=== PATIENT | female | born 1970 | race Caucasian/White ===

== ENCOUNTER 2016-04-18 14:16 | Emergency (ER) | payer BC, OTHER ==
[~2016-04-18 14:16] MED LIST: DULO30CA PO; LIDO5DIS36 TD; ROXI15TA12 PO; VALI10TA PO
[2016-04-18] MEDS ORDERED: ONDANSETRON 4MG/2ML VIAL (J2405) As Ordered ONE (16:40)
[2016-04-18] MEDS ORDERED: MORPHINE 4 MG/ML 1ML SYRINGE As Ordered ONE (17:01)
[2016-04-18 17:13] LABS: ALBUMIN/GLOBULIN RATIO 1.11 (1.00-1.93); ALKALINE PHOSPHATASE 192 U/L (45-117); ALT/SGPT 15 U/L (12-78); AMYLASE 17 U/L (25-115); ANION GAP 10 MEQ/L (8-16); AST/SGOT 12 U/L (15-37); BILIRUBIN,DIRECT 0.1 MG/DL (0.0-0.2); BILIRUBIN,TOTAL 0.4 MG/DL (0.2-1.0); BLOOD UREA NITROGEN 10 MG/DL (7-18); CALCIUM LEVEL 9.1 MG/DL (8.5-10.1); CARBON DIOXIDE LEVEL 26 MEQ/L (21-32); CHLORIDE LEVEL 106 MEQ/L (98-107); CREATININE FOR GFR 0.76 MG/DL (0.55-1.02); GLOMERULAR FILTRATION RATE > 60.0 (>58); GLUCOSE, FASTING 108 MG/DL (70-105); POTASSIUM SERUM 3.5 MEQ/L (3.5-5.1); SODIUM LEVEL 142 MEQ/L (136-145); TOTAL PROTEIN 7.6 GM/DL (6.4-8.2)
[2016-04-18 17:22] LABS: BASO # 0.1 K/mm3 (0.0-0.2); BASO % 0.8 % (0.0-1.0); EOS # 0.1 K/mm3 (0.0-0.50); EOS % 1.3 % (0.0-3.0); LARGE UNSTAINED CELL # 0.1 K/mm3 (0.0-0.4); LARGE UNSTAINED CELL % 1.4 % (0.0-4.0); LYMPH # 1.7 K/mm3 (1.5-4.5); LYMPH % 19.2 % (24.0-44.0); MEAN CORPUSCULAR HEMOGLOBIN 20.5 pg (27.0-33.0); MEAN CORPUSCULAR HGB CONC 30.5 g/dl (32.0-36.5); MEAN CORPUSCULAR VOLUME 67.2 fl (80.0-96.0); MONO # 0.4 K/mm3 (0.0-0.8); MONO % 5.2 % (0.0-5.0); NEUTROPHILS # 5.8 K/mm3 (1.8-7.7); NEUTROPHILS % 72.2 % (36.0-66.0); PLATELET COUNT, AUTOMATED 352 k/mm3 (150-450); RED CELL DISTRIBUTION WIDTH 18.5 % (11.5-14.5); WHITE BLOOD COUNT 8.1 K/mm3 (4.0-10.0)
[2016-04-18 17:38] LABS: ADD MORPHOLOGY? YES
[2016-04-18 17:50] LABS: ANISOCYTOSIS 2+; HYPOCHROMASIA 2+; MICROCYTOSIS 3+
--- NOTE | 2016-04-18 17:51 | REP ---
CT of the abdomen and pelvis 04/18/2016 performed without contrast Indication: Abdominal pain and flank pain Comparison: CT of the abdomen and pelvis 11/25/2014 performed at [facility]. Technique: 3 mm continuous spiral axial sections were performed through the abdomen and pelvis without IV or oral contrast administration. Findings: A 1.4 cm bulla is identified in the right lower lobe above the right hemidiaphragm. The liver , spleen are unremarkable. Kidneys are without hydronephrosis. Mild atrophic changes are seen within the pancreas. The pancreatic duct is visualized, slightly ectatic yet not distended. Gallbladder is not visualized and may be surgically absent. Extensive postsurgical changes are noted in left upper quadrant consistent with prior gastric bypass surgery. The stomach is contracted. Few air fluid levels in mildly generous small bowel loops are seen in left upper quadrant. The abdominal aorta is of normal course and caliber. There are no pathologically enlarged retroperitoneal nodes. Focal circumferential area of narrowing is seen within the rectosigmoid colon, identified on image 111 series 201 which could represent spasm or fixed narrowing. There is generalized under distension within the transverse colon. There are findings consistent with a prior ileocolic anastomoses in region of the ascending colon. Bladder is contracted. Uterus is absent. There are no visualized pelvic masses. Patient has previous bilateral posterior laminectomies at L4, L5 levels. There has been previous disc cage placement at L4-5, and L5 -S1, with bilateral posterior pedicular fusion from L4 through S1. Alignment is anatomic. Impression1. Extensive postsurgical changes to include previous gastric bypass surgery, hysterectomy, and right colon resection. 2. Focal area of narrowing within rectosigmoid colon which could represent spasm or fixed narrowing. Interval followup is recommended. 3. Previous bilateral laminectomies and posterior fusion at L4 and L5. There are bilateral posterior pedicular screws with vertical stabilization rods noted from L4-S1. 4. Kidneys are without hydronephrosis bilaterally. Bladder is contracted. Signed by Shelly Wing MD 04/21/2016 08:49 P
[2016-04-18] MEDS ORDERED: DICYCLOMINE 10 MG CAP As Ordered ONE (18:09)
[2016-04-18] MEDS ORDERED: PERCOCET 5MG/325MG TAB As Ordered ONE (18:09)
--- NOTE | 2016-04-18 18:48 | EDDOCDS ---
Nurse's Notes [facility] Name: Miranda Ferreira Age: 45 yrs Sex: Female : 1970 Arrival Date: 04/18/2016 Time: 14:16 Bed I5 / M5 Private MD: Tony Cordero J Diagnosis: Other abdominal pain-Right Sided with Right Flank Pain Presentation: 04/18 14:22 Presenting complaint: Patient states: was suppose to have a hernia repair tomorrow but dsf it was canceled. Pt states the surgery was rescheduled for Friday. Pt states the pain has been severe the past 3 days and the nurses at [facility] told pt to go to [facility]. Pt states she has a spot on the right side of her abdomen and it was suppose to be biopsied today but unable to make it due to weather. Risk factors: the patient reports no vaginal bleeding. Adult Sepsis Screening: The patient does not have new or worsening altered mentation. Patient's respiratory rate is less than 22. Systolic blood pressure is greater than 100. Patient has a qSOFA score of 0- Negative Sepsis Screen. Suicide/Homicide risk assessment- the patient denies having any suicidal and/or homicidal ideations and does not present with any other emotional, behavioral or mental health complaints. 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 Transition of care: patient was not received from another setting of care. 14:22 Acuity: ROSIO Level 3 dsf 14:22 Method Of Arrival: Walkin/Carried/Asstd dsf Triage Assessment: 14:31 General: Appears in no apparent distress, Behavior is appropriate for age, cooperative. dsf Pain: Location: abdomen Pain currently is 8 out of 10 on a pain scale. back, Quality of pain is described as pressure. HIV screening NA for this visit Offered previously. GI: Reports Pain is 9 out of 10 on a pain scale. 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 Tylenol 325 mg Oral tab 2 tabs as needed (Last dose: 04/18/2016 07:30) - PMHx: uterine cancer; Migraines; Diabetes - NIDDM: controlled; - PSHx: Gastric Bypass; Appendectomy; back surgery x 2; Hysterectomy; neck surgery; Bowel resection (October 2013); - Social history: Smoking status: Patient states was never smoker of tobacco. No barriers to communication noted, The patient speaks fluent Chinese, Speaks appropriately for age. - Family history: Not pertinent. - : The pt / caregiver states he / she is not on anticoagulants. Home medication list is obtained from the patient. - Exposure Risk Screening:: None identified. Screenin:09 Screening information is obtained from the patient. Fall risk: No risks identified. rs3 Assistance ADL's: requires no assistance with activities of daily living. Abuse/DV Screen: The patient / caregiver reports he/she is: not in a situation that causes fear, pain or injury. Nutritional screening: No deficits noted. Advance Directives: Currently, there is no health care proxy. home support is adequate. Assessment: 17:08 General: Appears in no apparent distress, Behavior is appropriate for age, cooperative. rs3 Pain: Location: abdomen. Respiratory: Airway is patent. GI: Abdomen is non- distended Bowel sounds present X 4 quads. Abd is soft and non tender X 4 quads. Reports upper abdominal pain, nausea. Derm: Skin is pink, warm & dry. 18:45 General: Appears uncomfortable, Behavior is appropriate for age, cooperative, pleasant. ka4 Pain: Location: abdomen Pain currently is 7 out of 10 on a pain scale. Neurological: Level of Consciousness is awake, alert, obeys commands, Oriented to person, place, time, Roughing Mill Operator are equal bilaterally Moves all extremities. Gait is steady, Speech is normal, Facial symmetry appears normal, Facial symmetry: tongue is midline. Respiratory: Airway is patent Respiratory effort is even, unlabored, Respiratory pattern is regular, symmetrical. Derm: Skin is intact, is healthy with good turgor, Skin is pink, warm & dry. Vital Signs: 14:19 BP 161 / 81; Pulse 93; Resp 18 S; Temp 97.4(O); Pulse Ox 100% on R/A; Weight 54.43 kg gr2 (R); Height 5 ft. 4 in. (162.56 cm) (R); Pain 10/10; 15:16 BP 166 / 94 RA Sitting (auto/reg); Pulse 106; Resp 18; Temp 97.3(O); Pulse Ox 100% on ka4 R/A; Pain 9/10; 18:41 BP 129 / 70 RA Sitting (auto/reg); Pulse 88 MON; Resp 18 S; Temp 97.9(O); Pulse Ox 98% ka4 on R/A; Pain 7/10; 14:19 Body Mass Index 20.60 (54.43 kg, 162.56 cm) gr2 Vitals: 14:19 Log In Time: April 18, 2016 at 14:19. gr2 ED Course: 14:18 Patient visited by Yovany Wagoner. gr2 14:18 Patient moved to Waiting gr2 14:19 Tony Cordero is Private Physician. gr2 14:21 Patient visited by Yovany Wagoner. gr2 14:21 Patient moved to Pre RCE gr2 14:26 Triage Initiated dsf 15:15 Patient moved to Triage 2 ka4 15:19 Patient visited by Zoya Crain LPN. ka4 16:[address] PA-C is PHCP. ef1 16:04 Scarlet Alfred MD is Attending Physician. ef1 16:[address]ais [address] PA-C. ef1 16:17 Patient moved to I5 / M5 ttb 16:[address] ka4 16:37 Amylase Sent. ka4 16:37 Basic Metabolic Profile Sent. ka4 16:37 CBC with Diff Sent. ka4 16:37 Liver Profile Sent. ka4 16:37 Lipase Sent. ka4 16:38 [facility] Payment Agreement was scanned into [employer] and attached to record. zo 16:38 Inserted saline lock: 20 gauge in left antecubital area and blood collected. The ka4 patient tolerated the procedure well. 16:[address] Anais Lane PA-C. ef1 16:57 Patient moved to I5 / M5 ek2 17:19 [address] by Anais Lane PA-C. ef1 17:50 Patient visited by Anais Lane PA-C. ef1 18:03 Tony Cordero is Referral Physician. ef1 18:11 CT ABD & PELVIS: No Contrast Returned. EDMS 18:18 Patient visited by Zoya Crain LPN. ka4 18:45 The patient / caregiver is instructed regarding the plan of care and ED course. Patient ka4 has correct armband on for positive identification. 18:45 Discontinued IV lock intact, bleeding controlled, pressure dressing applied, No ka4 redness/swelling at site. No procedures done that require assistance. Administered Medications: 16:46 Drug: NS 0.9% 1000 ml [sodium chloride 0.9 % intravenous solution] Route: IV; Rate: rs3 bolus; Site: left antecubital; 16:46 Drug: Ondansetron 4 mg [ondansetron HCl 2 mg/mL intravenous solution (2 mL)] Route: rs3 IVP; Site: left antecubital; 18:45 Follow up: Response: Nausea is decreased ka4 17:08 Drug: morphine 4 mg [morphine 4 mg/mL intravenous cartridge (1 mL)] Route: IVP; Site: rs3 left antecubital; 18:45 Follow up: Response: No significant change. ka4 18:17 Drug: Dicyclomine 20 mg [dicyclomine 10 mg capsule (2 caps)] Route: PO; ka4 18:44 Follow up: Response: No Adverse Reaction ka4 18:17 Drug: oxyCODONE-acetaminophen 2 tabs [oxycodone-acetaminophen 5 mg-325 mg tablet (2 ka4 tabs)] Route: PO; 18:44 Follow up: Response: Pain is decreased ka4 Order Results: Lab Order: Amylase; SPEC'M 04/18/16 16:33 Test: AMYLASE; Value: 17; Range: 25-115; Abnormal: Below low normal; Units: U/L; Status: F Lab Order: Basic Metabolic Profile; SPEC'M 04/18/16 16:33 Test: GLUCOSE, FASTING; Value: 108; Range: 70-105; Abnormal: Above high normal; Units: MG/DL; Status: F Test: BLOOD UREA NITROGEN; Value: 10; Range: 7-18; Units: MG/DL; Status: F Test: CREATININE FOR GFR; Value: 0.76; Range: 0.55-1.02; Units: MG/DL; Status: F Test: GLOMERULAR FILTRATION RATE; Value: > 60.0; Range: >58; Status: F Test: SODIUM LEVEL; Value: 142; Range: 136-145; Units: MEQ/L; Status: F Test: POTASSIUM SERUM; Value: 3.5; Range: 3.5-5.1; Units: MEQ/L; Status: F Test: CHLORIDE LEVEL; Value: 106; Range: 98-107; Units: MEQ/L; Status: F Test: CARBON DIOXIDE LEVEL; Value: 26; Range: 21-32; Units: MEQ/L; Status: F Test: ANION GAP; Value: 10; Range: 8-16; Units: MEQ/L; Status: F Test: CALCIUM LEVEL; Value: 9.1; Range: 8.5-10.1; Units: MG/DL; Status: F Test Note: ; Units are mL/min/1.73 m2 Chronic Kidney Disease Staging per NKF: Stage I & II GFR >=60 Normal to Mildly Decreased Stage III GFR 30-59 Moderately Decreased Stage IV GFR 15-29 Severely Decreased Stage V GFR <15 Very Little GFR Left ESRD GFR <15 on CHIEF MEDIA OFFICER Lab Order: CBC with Diff; SPEC'M 04/18/16 16:33 Test: WHITE BLOOD COUNT; Value: 8.1; Range: 4.0-10.0; Units: K/mm3; Status: F Test: RED BLOOD COUNT; Value: 4.83; Range: 4.00-5.40; Units: M/mm3; Status: F Test: HEMOGLOBIN; Value: 9.9; Range: 12.0-16.0; Abnormal: Below low normal; Units: g/dl; Status: F Test: HEMATOCRIT; Value: 32.5; Range: 36.0-47.0; Abnormal: Below low normal; Units: %; Status: F Test: MEAN CORPUSCULAR VOLUME; Value: 67.2; Range: 80.0-96.0; Abnormal: Below low normal; Units: fl; Status: F Test: MEAN CORPUSCULAR HEMOGLOBIN; Value: 20.5; Range: 27.0-33.0; Abnormal: Below low normal; Units: pg; Status: F Test: MEAN CORPUSCULAR HGB CONC; Value: 30.5; Range: 32.0-36.5; Abnormal: Below low normal; Units: g/dl; Status: F Test: RED CELL DISTRIBUTION WIDTH; Value: 18.5; Range: 11.5-14.5; Abnormal: Above high normal; Units: %; Status: F Test: PLATELET COUNT, AUTOMATED; Value: 352; Range: 150-450; Units: k/mm3; Status: F Test: NEUTROPHILS %; Value: 72.2; Range: 36.0-66.0; Abnormal: Above high normal; Units: %; Status: F Test: LYMPH %; Value: 19.2; Range: 24.0-44.0; Abnormal: Below low normal; Units: %; Status: F Test: MONO %; Value: 5.2; Range: 0.0-5.0; Abnormal: Above high normal; Units: %; Status: F Test: EOS %; Value: 1.3; Range: 0.0-3.0; Units: %; Status: F Test: BASO %; Value: 0.8; Range: 0.0-1.0; Units: %; Status: F Test: LARGE UNSTAINED CELL %; Value: 1.4; Range: 0.0-4.0; Units: %; Status: F Test: NEUTROPHILS #; Value: 5.8; Range: 1.8-7.7; Units: K/mm3; Status: F Test: LYMPH #; Value: 1.7; Range: 1.5-4.5; Units: K/mm3; Status: F Test: MONO #; Value: 0.4; Range: 0.0-0.8; Units: K/mm3; Status: F Test: EOS #; Value: 0.1; Range: 0.0-0.50; Units: K/mm3; Status: F Test: BASO #; Value: 0.1; Range: 0.0-0.2; Units: K/mm3; Status: F Test: LARGE UNSTAINED CELL #; Value: 0.1; Range: 0.0-0.4; Units: K/mm3; Status: F Lab Order: Lipase; SPEC'M 04/18/16 16:33 Test: LIPASE; Value: 74; Range: 73-393; Units: U/L; Status: F Lab Order: Liver Profile; SPEC'M 04/18/16 16:33 Test: AST/SGOT; Value: 12; Range: 15-37; Abnormal: Below low normal; Units: U/L; Status: F Test: ALT/SGPT; Value: 15; Range: 12-78; Units: U/L; Status: F Test: ALKALINE PHOSPHATASE; Value: 192; Range: 45-117; Abnormal: Above high normal; Units: U/L; Status: F Test: BILIRUBIN,TOTAL; Value: 0.4; Range: 0.2-1.0; Units: MG/DL; Status: F Test: BILIRUBIN,DIRECT; Value: 0.1; Range: 0.0-0.2; Units: MG/DL; Status: F Test: TOTAL PROTEIN; Value: 7.6; Range: 6.4-8.2; Units: GM/DL; Status: F Test: ALBUMIN; Value: 4.0; Range: 3.2-5.2; Units: GM/DL; Status: F Test: ALBUMIN/GLOBULIN RATIO; Value: 1.11; Range: 1.00-1.93; Status: F Lab Order: Urinalysis; SPEC'M 04/18/16 16:20 Test: APPEARANCE, URINE; Value: CLEAR; Range: CLEAR; Status: F Test: COLOR, URINE; Value: STRAW; Range: YELLOW; Status: F Test: PH,URINE; Value: 6.0; Range: 5.0-9.0; Units: UNITS; Status: F Test: SPECIFIC GRAVITY URINE AUTO; Value: 1.006; Range: 1.002-1.035; Status: F Test: PROTEIN, URINE AUTO; Value: NEGATIVE; Range: NEGATIVE; Units: mg/dL; Status: F Test: GLUCOSE, URINE (UA) AUTO; Value: NEGATIVE; Range: NEGATIVE; Units: mg/dL; Status: F Test: KETONE, URINE AUTO; Value: NEGATIVE; Range: NEGATIVE; Units: mg/dL; Status: F Test: UROBILINOGEN, URINE AUTO; Value: 0.2; Range: 0.0-2.0; Units: mg/dL; Status: F Test: BILIRUBIN, URINE AUTO; Value: NEGATIVE; Range: NEGATIVE; Status: F Test: NITRITE, URINE AUTO; Value: NEGATIVE; Range: NEGATIVE; Status: F Test: LEUKOCYTE ESTERASE, URINE AUTO; Value: NEGATIVE; Range: NEGATIVE; Status: F Test: BLOOD, URINE BLOOD; Value: NEGATIVE; Range: NEGATIVE; Status: F Test: WBC, URINE AUTO; Value: 2; Range: 0-3; Units: /HPF; Status: F Test: RBC, URINE AUTO; Value: 2; Range: 0-3; Units: /HPF; Status: F Test: BACTERIA, URINE AUTO; Value: 1+; Range: NEGATIVE; Abnormal: Above high normal; Status: F Test: SQUAMOUS EPITHELIAL CELL UR AU; Value: 1; Range: 0-6; Units: /HPF; Status: F Test: MUCUS, URINE; Value: SMALL; Range: NEGATIVE; Status: F Test: HYALINE CAST, URINE AUTO; Value: 0; Range: 0-1; Units: /LPF; Status: F Lab Order: RBC MORPH PROF NO CHARGE; SPEC'M 04/18/16 16:33 Test: PLATELET ESTIMATE; Range: NORMAL; Status: I Test: HYPOCHROMASIA; Value: 2+; Status: F Test: ANISOCYTOSIS; Value: 2+; Status: F Test: MICROCYTOSIS; Value: 3+; Status: F Test: PLATELET ESTIMATE; Value: NORMAL; Range: NORMAL; Status: F Radiology Order: CT ABD & PELVIS: No Contrast Test: CT ABD & PELVIS: No Contrast REASON FOR EXAMINATION: abd pain and flank pain; CT of the abdomen and pelvis 04/18/2016 performed without contrast; ; Indication: Abdominal pain and flank pain; ; Comparison: CT of the abdomen and pelvis 11/25/2014 performed at [facility].; ; Technique: 3 mm continuous spiral axial sections were performed through the; abdomen and pelvis without IV or oral contrast administration.; ; Findings: A 1.4 cm bulla is identified in the right lower lobe above the right; hemidiaphragm. The liver , spleen are unremarkable. Kidneys are without; hydronephrosis. Mild atrophic changes are seen within the pancreas. The; pancreatic duct is visualized slightly ectatic yet not distended. Gallbladder is; not visualized and may be surgically absent. Extensive postsurgical changes are; noted in left upper quadrant consistent with prior gastric bypass surgery. The; stomach is contracted. Few air fluid levels in mildly generous small bowel; loops are seen in left upper quadrant.; ; The abdominal aorta is of normal course and caliber. There are no pathologically; enlarged retroperitoneal nodes. Focal circumferential area of narrowing is seen; within the rectosigmoid colon, identified on image 111 series 201. There is; generalized under distension within the transverse colon. There are findings; consistent with a prior ileocolic anastomoses in region of the ascending colon.; ; Bladder is contracted. Uterus is absent. There are no visualized pelvic masses.; ; Patient has had previous bilateral posterior laminectomies at L4, L5 levels.; There has been previous disc cage placement at L4-5, and L5 -S1, with bilateral; posterior pedicular fusion from L4 through S1. Alignment is anatomic.; ; Impression; 1. Extensive postsurgical changes to include previous gastric bypass surgery,; hysterectomy, and right colon resection.; 2. Focal area of narrowing within rectosigmoid colon which could represent spasm; or fixed narrowing. Interval followup is recommended; 3. Previous bilateral laminectomies and posterior fusion at L4 and L5. There; are bilateral posterior pedicular screws with vertical stabilization rods noted; from L4-S1.; 4. Kidneys are without hydronephrosis bilaterally. Bladder is contracted.; ; ; ; ; ; ; Unreviewed; Outcome: 18:03 Discharge ordered by Provider. ef1 18:45 Discharge Assessment: patient administered narcotics - yes. Pt provided with safe ka4 discharge. The following High Risk Discharge criteria are identified: None. Discharged to home ambulatory. Condition: good Condition: stable. CT Study completed. Property :Personal belongings accompany Pt. 18:47 Patient left the ED. ka4 Signatures: Dispatcher [employer] EDMS Cruz Ramirez Erica, PA-C PA-C ef1 Coco Soliz RN RN rs3 Carmina Lange RN RN Carley Macias RN RN ttb Raymond, Gainslee gr2 Zoya Crain LPN LPN ka4 Robby Figueredo2 MTDD
--- NOTE | 2016-04-18 18:48 | EDDOCDS ---
Physician Documentation [facility] Name: Miranda Ferreira Age: 45 yrs Sex: Female : 1970 Arrival Date: 04/18/2016 Time: 14:16 Bed I5 / M5 Private MD: Tony Cordero J Disposition: 04/18/16 18:03 Discharged to Home/Self Care. Impression: Other abdominal pain - Right Sided with Right Flank Pain. - Condition is Stable. - Discharge Instructions: Abdominal Pain, Adult, [id number], Flank Pain, [id number]. - Prescriptions for Bentyl 20 mg Oral Tablet - take 1 tablet by ORAL route every 6 hours As needed; 20 tablet. ZOFRAN ODT 4 mg - dissolve 1 tablet by ORAL route 4 times per day As needed do not chew, do not swallow whole; 10 tablet. - Medication Reconciliation, Local Pharmacy Hours form. - Follow up: Tony Cordero; When: 1 - 2 days; Reason: Recheck today's complaints, Continuance of care. Follow up: Emergency Department; Reason: Worsening of conditions. - Problem is new. - Symptoms have improved. Historical: - Allergies: Avelox (Hives); ivp dye (Anaphylaxis); Lisinopril (Hives); Phenobarbital (Anaphylaxis); Ativan (Anaphylaxis); Aspirin (Anaphylaxis); PROPOXYPHENE (Anaphylaxis); Soma (Hives); nabumetone (Hives); Lyrica (Hives); Topamax (Hives); Tramadol HCl (Vomit); [id number] Antimigraine Agents (Anaphylaxis); - Home Meds: 1. Tylenol 325 mg Oral tab 2 tabs as needed (Last dose: 04/18/2016 07:30) - PMHx: uterine cancer; Migraines; Diabetes - NIDDM: controlled; - PSHx: Gastric Bypass; Appendectomy; back surgery x 2; Hysterectomy; neck surgery; Bowel resection (October 2013); - Social history: Smoking status: Patient states was never smoker of tobacco. No barriers to communication noted, The patient speaks fluent Serbian, Speaks appropriately for age. - Family history: Not pertinent. - : The pt / caregiver states he / she is not on anticoagulants. Home medication list is obtained from the patient. - Exposure Risk Screening:: None identified. 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 4 in. (162.56 cm) (R); Pain 10/10; 15:16 BP 166 / 94 RA Sitting (auto/reg); Pulse 106; Resp 18; Temp 97.3(O); Pulse Ox 100% on ka4 R/A; Pain 9/10; 18:41 BP 129 / 70 RA Sitting (auto/reg); Pulse 88 MON; Resp 18 S; Temp 97.9(O); Pulse Ox 98% ka4 on R/A; Pain 7/10; 14:19 Body Mass Index 20.60 (54.43 kg, 162.56 cm) gr2 MDM: 16:14 NS 0.9% 1000 ml IV at bolus once ordered. ef1 16:14 Ondansetron 4 mg IVP once ordered. ef1 16:14 Undress patient appropriately for examination ordered. ef1 16:15 Amylase Ordered. EDMS 16:15 Basic Metabolic Profile Ordered. EDMS 16:15 CBC with Diff Ordered. EDMS 16:15 Lipase Ordered. EDMS 16:15 Liver Profile Ordered. EDMS 16:15 Urinalysis Ordered. EDMS 16:15 Urine Culture Ordered. EDMS 16:15 CT ABD & PELVIS: No Contrast Ordered. EDMS 16:15 NOTHING BY MOUTH+DIET ordered. EDMS 16:36 Financial registration complete. zo 16:38 [facility] Payment Agreement was scanned into [employer] and attached to record. zo 16:48 morphine 4 mg IVP once ordered. ef1 17:52 Amylase Reviewed. ef1 17:52 Basic Metabolic Profile Reviewed. ef1 17:52 CBC with Diff Reviewed. ef1 17:52 Liver Profile Reviewed. ef1 17:52 Urinalysis Reviewed. ef1 17:52 Lipase Reviewed. ef1 17:57 CBC with Diff Reviewed. ef1 17:57 RBC MORPH PROF NO CHARGE Reviewed. ef1 18:02 Dicyclomine 20 mg PO once ordered. ef1 18:02 oxyCODONE-acetaminophen 5 mg-325 mg 2 tabs PO once ordered. ef1 Administered Medications: 16:46 Drug: NS 0.9% 1000 ml [sodium chloride 0.9 % intravenous solution] Route: IV; Rate: rs3 bolus; Site: left antecubital; 16:46 Drug: Ondansetron 4 mg [ondansetron HCl 2 mg/mL intravenous solution (2 mL)] Route: rs3 IVP; Site: left antecubital; 18:45 Follow up: Response: Nausea is decreased ka4 17:08 Drug: morphine 4 mg [morphine 4 mg/mL intravenous cartridge (1 mL)] Route: IVP; Site: rs3 left antecubital; 18:45 Follow up: Response: No significant change. ka4 18:17 Drug: Dicyclomine 20 mg [dicyclomine 10 mg capsule (2 caps)] Route: PO; ka4 18:44 Follow up: Response: No Adverse Reaction ka4 18:17 Drug: oxyCODONE-acetaminophen 2 tabs [oxycodone-acetaminophen 5 mg-325 mg tablet (2 ka4 tabs)] Route: PO; 18:44 Follow up: Response: Pain is decreased ka4 Signatures: Dispatcher [employer] EDCruz Rothman Erica, PA-C PAAlanna ef1 Carmina Lange RN RN Zoya Lui LPN COLLEGE SPECIALIST ka4 Coco Soliz RN rs3 The chart was reviewed and I authenticate all verbal orders and agree with the evaluation and treatment provided.Attachments: 16:38 [facility] Payment Agreement zo MTDD
--- NOTE | 2016-04-20 19:49 | EDDOCDS ---
Nurse's Notes [facility] Name: Miranda Ferreira Age: 45 yrs Sex: Female : 1970 Arrival Date: 04/18/2016 Time: 14:16 Bed I5 / M5 Private MD: Tony Cordero J Diagnosis: Other abdominal pain-Right Sided with Right Flank Pain Presentation: 04/18 14:22 Presenting complaint: Patient states: was suppose to have a hernia repair tomorrow but dsf it was canceled. Pt states the surgery was rescheduled for Friday. Pt states the pain has been severe the past 3 days and the nurses at [facility] told pt to go to [facility]. Pt states she has a spot on the right side of her abdomen and it was suppose to be biopsied today but unable to make it due to weather. Risk factors: the patient reports no vaginal bleeding. Adult Sepsis Screening: The patient does not have new or worsening altered mentation. Patient's respiratory rate is less than 22. Systolic blood pressure is greater than 100. Patient has a qSOFA score of 0- Negative Sepsis Screen. Suicide/Homicide risk assessment- the patient denies having any suicidal and/or homicidal ideations and does not present with any other emotional, behavioral or mental health complaints. Status: Patient is not a supervisor self service store or dependent. Transition of care: patient was not received from another setting of care. 14:22 Acuity: ROSIO Level 3 dsf 14:22 Method Of Arrival: Walkin/Carried/Asstd dsf Triage Assessment: 14:31 General: Appears in no apparent distress, Behavior is appropriate for age, cooperative. dsf Pain: Location: abdomen Pain currently is 8 out of 10 on a pain scale. back, Quality of pain is described as pressure. HIV screening NA for this visit Offered previously. GI: Reports Pain is 9 out of 10 on a pain scale. CLIENT ARCHITECT: 14:31 LMP N/A - Hysterectomy dsf Historical: - Allergies: Avelox (Hives); ivp dye (Anaphylaxis); Lisinopril (Hives); Phenobarbital (Anaphylaxis); Ativan (Anaphylaxis); Aspirin (Anaphylaxis); PROPOXYPHENE (Anaphylaxis); Soma (Hives); nabumetone (Hives); Lyrica (Hives); Topamax (Hives); Tramadol HCl (Vomit); [id number] Antimigraine Agents (Anaphylaxis); - Home Meds: 1. Tylenol 325 mg Oral tab 2 tabs as needed (Last dose: 04/18/2016 07:30) - PMHx: uterine cancer; Migraines; Diabetes - NIDDM: controlled; - PSHx: Gastric Bypass; Appendectomy; back surgery x 2; Hysterectomy; neck surgery; Bowel resection (October 2013); - Social history: Smoking status: Patient states was never smoker of tobacco. No barriers to communication noted, The patient speaks fluent Danish, Speaks appropriately for age. - Family history: Not pertinent. - : The pt / caregiver states he / she is not on anticoagulants. Home medication list is obtained from the patient. - Exposure Risk Screening:: None identified. Screenin:09 Screening information is obtained from the patient. Fall risk: No risks identified. rs3 Assistance ADL's: requires no assistance with activities of daily living. Abuse/DV Screen: The patient / caregiver reports he/she is: not in a situation that causes fear, pain or injury. Nutritional screening: No deficits noted. Advance Directives: Currently, there is no health care proxy. home support is adequate. Assessment: 17:08 General: Appears in no apparent distress, Behavior is appropriate for age, cooperative. rs3 Pain: Location: abdomen. Respiratory: Airway is patent. GI: Abdomen is non- distended Bowel sounds present X 4 quads. Abd is soft and non tender X 4 quads. Reports upper abdominal pain, nausea. Derm: Skin is pink, warm & dry. 18:45 General: Appears uncomfortable, Behavior is appropriate for age, cooperative, pleasant. ka4 Pain: Location: abdomen Pain currently is 7 out of 10 on a pain scale. Neurological: Level of Consciousness is awake, alert, obeys commands, Oriented to person, place, time, [employer] are equal bilaterally Moves all extremities. Gait is steady, Speech is normal, Facial symmetry appears normal, Facial symmetry: tongue is midline. Respiratory: Airway is patent Respiratory effort is even, unlabored, Respiratory pattern is regular, symmetrical. Derm: Skin is intact, is healthy with good turgor, Skin is pink, warm & dry. Vital Signs: 14:19 BP 161 / 81; Pulse 93; Resp 18 S; Temp 97.4(O); Pulse Ox 100% on R/A; Weight 54.43 kg gr2 (R); Height 5 ft. 4 in. (162.56 cm) (R); Pain 10/10; 15:16 BP 166 / 94 RA Sitting (auto/reg); Pulse 106; Resp 18; Temp 97.3(O); Pulse Ox 100% on ka4 R/A; Pain 9/10; 18:41 BP 129 / 70 RA Sitting (auto/reg); Pulse 88 MON; Resp 18 S; Temp 97.9(O); Pulse Ox 98% ka4 on R/A; Pain 7/10; 14:19 Body Mass Index 20.60 (54.43 kg, 162.56 cm) gr2 Vitals: 14:19 Log In Time: April 18, 2016 at 14:19. gr2 ED Course: 14:18 Patient visited by Yovany Wagoner. gr2 14:18 Patient moved to Waiting gr2 14:19 Tony Cordero is Private Physician. gr2 14:21 Patient visited by Yovany Wagoner. gr2 14:21 Patient moved to Pre RCE gr2 14:26 Triage Initiated dsf 15:15 Patient moved to Triage 2 ka4 15:19 Patient visited by Zoya Crain LPN. ka4 16:[address] PA-C is PHCP. ef1 16:04 Scarlet Alfred MD is Attending Physician. ef1 16:[address] Anais [address] PA-C. ef1 16:17 Patient moved to I5 / M5 ttb 16:[address] ka4 16:37 Amylase Sent. ka4 16:37 Basic Metabolic Profile Sent. ka4 16:37 CBC with Diff Sent. ka4 16:37 Liver Profile Sent. ka4 16:37 Lipase Sent. ka4 16:38 [facility] Payment Agreement was scanned into [employer] and attached to record. zo 16:38 Inserted saline lock: 20 gauge in left antecubital area and blood collected. The ka4 patient tolerated the procedure well. 16:[address] by Anais Lane PA-C. ef1 16:57 Patient moved to I5 / M5 ek2 17:19 [address] by Anais Lane PA-C. ef1 17:50 Patient visited by Anais Lane PA-C. ef1 18:03 Tony Cordero is Referral Physician. ef1 18:11 CT ABD & PELVIS: No Contrast Returned. EDMS 18:18 Patient visited by Zoya Crain LPN. ka4 18:45 The patient / caregiver is instructed regarding the plan of care and ED course. Patient ka4 has correct armband on for positive identification. 18:45 Discontinued IV lock intact, bleeding controlled, pressure dressing applied, No ka4 redness/swelling at site. No procedures done that require assistance. 04/19 08:07 T-Sheet-- Draft Copy was scanned into [employer] and attached to record. gb 13:27 Radiology Report was scanned into [employer] and attached to record. gb Administered Medications: 04/18 16:46 Drug: NS 0.9% 1000 ml [sodium chloride 0.9 % intravenous solution] Route: IV; Rate: rs3 bolus; Site: left antecubital; 16:46 Drug: Ondansetron 4 mg [ondansetron HCl 2 mg/mL intravenous solution (2 mL)] Route: rs3 IVP; Site: left antecubital; 18:45 Follow up: Response: Nausea is decreased ka4 17:08 Drug: morphine 4 mg [morphine 4 mg/mL intravenous cartridge (1 mL)] Route: IVP; Site: rs3 left antecubital; 18:45 Follow up: Response: No significant change. ka4 18:17 Drug: Dicyclomine 20 mg [dicyclomine 10 mg capsule (2 caps)] Route: PO; ka4 18:44 Follow up: Response: No Adverse Reaction ka4 18:17 Drug: oxyCODONE-acetaminophen 2 tabs [oxycodone-acetaminophen 5 mg-325 mg tablet (2 ka4 tabs)] Route: PO; 18:44 Follow up: Response: Pain is decreased ka4 Order Results: Lab Order: Amylase; SPEC'M 04/18/16 16:33 Test: AMYLASE; Value: 17; Range: 25-115; Abnormal: Below low normal; Units: U/L; Status: F Lab Order: Basic Metabolic Profile; SPEC'M 04/18/16 16:33 Test: GLUCOSE, FASTING; Value: 108; Range: 70-105; Abnormal: Above high normal; Units: MG/DL; Status: F Test: BLOOD UREA NITROGEN; Value: 10; Range: 7-18; Units: MG/DL; Status: F Test: CREATININE FOR GFR; Value: 0.76; Range: 0.55-1.02; Units: MG/DL; Status: F Test: GLOMERULAR FILTRATION RATE; Value: > 60.0; Range: >58; Status: F Test: SODIUM LEVEL; Value: 142; Range: 136-145; Units: MEQ/L; Status: F Test: POTASSIUM SERUM; Value: 3.5; Range: 3.5-5.1; Units: MEQ/L; Status: F Test: CHLORIDE LEVEL; Value: 106; Range: 98-107; Units: MEQ/L; Status: F Test: CARBON DIOXIDE LEVEL; Value: 26; Range: 21-32; Units: MEQ/L; Status: F Test: ANION GAP; Value: 10; Range: 8-16; Units: MEQ/L; Status: F Test: CALCIUM LEVEL; Value: 9.1; Range: 8.5-10.1; Units: MG/DL; Status: F Test Note: ; Units are mL/min/1.73 m2 Chronic Kidney Disease Staging per NKF: Stage I & II GFR >=60 Normal to Mildly Decreased Stage III GFR 30-59 Moderately Decreased Stage IV GFR 15-29 Severely Decreased Stage V GFR <15 Very Little GFR Left ESRD GFR <15 on PROMOTIONS EXECUTIVE Lab Order: CBC with Diff; SPEC'M 04/18/16 16:33 Test: WHITE BLOOD COUNT; Value: 8.1; Range: 4.0-10.0; Units: K/mm3; Status: F Test: RED BLOOD COUNT; Value: 4.83; Range: 4.00-5.40; Units: M/mm3; Status: F Test: HEMOGLOBIN; Value: 9.9; Range: 12.0-16.0; Abnormal: Below low normal; Units: g/dl; Status: F Test: HEMATOCRIT; Value: 32.5; Range: 36.0-47.0; Abnormal: Below low normal; Units: %; Status: F Test: MEAN CORPUSCULAR VOLUME; Value: 67.2; Range: 80.0-96.0; Abnormal: Below low normal; Units: fl; Status: F Test: MEAN CORPUSCULAR HEMOGLOBIN; Value: 20.5; Range: 27.0-33.0; Abnormal: Below low normal; Units: pg; Status: F Test: MEAN CORPUSCULAR HGB CONC; Value: 30.5; Range: 32.0-36.5; Abnormal: Below low normal; Units: g/dl; Status: F Test: RED CELL DISTRIBUTION WIDTH; Value: 18.5; Range: 11.5-14.5; Abnormal: Above high normal; Units: %; Status: F Test: PLATELET COUNT, AUTOMATED; Value: 352; Range: 150-450; Units: k/mm3; Status: F Test: NEUTROPHILS %; Value: 72.2; Range: 36.0-66.0; Abnormal: Above high normal; Units: %; Status: F Test: LYMPH %; Value: 19.2; Range: 24.0-44.0; Abnormal: Below low normal; Units: %; Status: F Test: MONO %; Value: 5.2; Range: 0.0-5.0; Abnormal: Above high normal; Units: %; Status: F Test: EOS %; Value: 1.3; Range: 0.0-3.0; Units: %; Status: F Test: BASO %; Value: 0.8; Range: 0.0-1.0; Units: %; Status: F Test: LARGE UNSTAINED CELL %; Value: 1.4; Range: 0.0-4.0; Units: %; Status: F Test: NEUTROPHILS #; Value: 5.8; Range: 1.8-7.7; Units: K/mm3; Status: F Test: LYMPH #; Value: 1.7; Range: 1.5-4.5; Units: K/mm3; Status: F Test: MONO #; Value: 0.4; Range: 0.0-0.8; Units: K/mm3; Status: F Test: EOS #; Value: 0.1; Range: 0.0-0.50; Units: K/mm3; Status: F Test: BASO #; Value: 0.1; Range: 0.0-0.2; Units: K/mm3; Status: F Test: LARGE UNSTAINED CELL #; Value: 0.1; Range: 0.0-0.4; Units: K/mm3; Status: F Lab Order: Lipase; SPEC'M 04/18/16 16:33 Test: LIPASE; Value: 74; Range: 73-393; Units: U/L; Status: F Lab Order: Liver Profile; SPEC'M 04/18/16 16:33 Test: AST/SGOT; Value: 12; Range: 15-37; Abnormal: Below low normal; Units: U/L; Status: F Test: ALT/SGPT; Value: 15; Range: 12-78; Units: U/L; Status: F Test: ALKALINE PHOSPHATASE; Value: 192; Range: 45-117; Abnormal: Above high normal; Units: U/L; Status: F Test: BILIRUBIN,TOTAL; Value: 0.4; Range: 0.2-1.0; Units: MG/DL; Status: F Test: BILIRUBIN,DIRECT; Value: 0.1; Range: 0.0-0.2; Units: MG/DL; Status: F Test: TOTAL PROTEIN; Value: 7.6; Range: 6.4-8.2; Units: GM/DL; Status: F Test: ALBUMIN; Value: 4.0; Range: 3.2-5.2; Units: GM/DL; Status: F Test: ALBUMIN/GLOBULIN RATIO; Value: 1.11; Range: 1.00-1.93; Status: F Lab Order: Urinalysis; [facility]' 04/18/16 16:20 Test: APPEARANCE, URINE; Value: CLEAR; Range: CLEAR; Status: F Test: COLOR, URINE; Value: STRAW; Range: YELLOW; Status: F Test: PH,URINE; Value: 6.0; Range: 5.0-9.0; Units: UNITS; Status: F Test: SPECIFIC GRAVITY URINE AUTO; Value: 1.006; Range: 1.002-1.035; Status: F Test: PROTEIN, URINE AUTO; Value: NEGATIVE; Range: NEGATIVE; Units: mg/dL; Status: F Test: GLUCOSE, URINE (UA) AUTO; Value: NEGATIVE; Range: NEGATIVE; Units: mg/dL; Status: F Test: KETONE, URINE AUTO; Value: NEGATIVE; Range: NEGATIVE; Units: mg/dL; Status: F Test: UROBILINOGEN, URINE AUTO; Value: 0.2; Range: 0.0-2.0; Units: mg/dL; Status: F Test: BILIRUBIN, URINE AUTO; Value: NEGATIVE; Range: NEGATIVE; Status: F Test: NITRITE, URINE AUTO; Value: NEGATIVE; Range: NEGATIVE; Status: F Test: LEUKOCYTE ESTERASE, URINE AUTO; Value: NEGATIVE; Range: NEGATIVE; Status: F Test: BLOOD, URINE BLOOD; Value: NEGATIVE; Range: NEGATIVE; Status: F Test: WBC, URINE AUTO; Value: 2; Range: 0-3; Units: /HPF; Status: F Test: RBC, URINE AUTO; Value: 2; Range: 0-3; Units: /HPF; Status: F Test: BACTERIA, URINE AUTO; Value: 1+; Range: NEGATIVE; Abnormal: Above high normal; Status: F Test: SQUAMOUS EPITHELIAL CELL UR AU; Value: 1; Range: 0-6; Units: /HPF; Status: F Test: MUCUS, URINE; Value: SMALL; Range: NEGATIVE; Status: F Test: HYALINE CAST, URINE AUTO; Value: 0; Range: 0-1; Units: /LPF; Status: F Lab Order: Urine Culture; SPEC'M 04/18/16 16:20 Test: URINE CULTURE; Value: URINE CULTURE RESULT NO GROWTH; Status: F Lab Order: RBC MORPH PROF NO CHARGE; SPEC'M 04/18/16 16:33 Test: PLATELET ESTIMATE; Range: NORMAL; Status: I Test: HYPOCHROMASIA; Value: 2+; Status: F Test: ANISOCYTOSIS; Value: 2+; Status: F Test: MICROCYTOSIS; Value: 3+; Status: F Test: PLATELET ESTIMATE; Value: NORMAL; Range: NORMAL; Status: F Radiology Order: CT ABD & PELVIS: No Contrast Test: CT ABD & PELVIS: No Contrast REASON FOR EXAMINATION: abd pain and flank pain; CT of the abdomen and pelvis 04/18/2016 performed without contrast; ; Indication: Abdominal pain and flank pain; ; Comparison: CT of the abdomen and pelvis 11/25/2014 performed at [facility].; ; Technique: 3 mm continuous spiral axial sections were performed through the; abdomen and pelvis without IV or oral contrast administration.; ; Findings: A 1.4 cm bulla is identified in the right lower lobe above the right; hemidiaphragm. The liver , spleen are unremarkable. Kidneys are without; hydronephrosis. Mild atrophic changes are seen within the pancreas. The; pancreatic duct is visualized slightly ectatic yet not distended. Gallbladder is; not visualized and may be surgically absent. Extensive postsurgical changes are; noted in left upper quadrant consistent with prior gastric bypass surgery. The; stomach is contracted. Few air fluid levels in mildly generous small bowel; loops are seen in left upper quadrant.; ; The abdominal aorta is of normal course and caliber. There are no pathologically; enlarged retroperitoneal nodes. Focal circumferential area of narrowing is seen; within the rectosigmoid colon, identified on image 111 series 201. There is; generalized under distension within the transverse colon. There are findings; consistent with a prior ileocolic anastomoses in region of the ascending colon.; ; Bladder is contracted. Uterus is absent. There are no visualized pelvic masses.; ; Patient has had previous bilateral posterior laminectomies at L4, L5 levels.; There has been previous disc cage placement at L4-5, and L5 -S1, with bilateral; posterior pedicular fusion from L4 through S1. Alignment is anatomic.; ; Impression; 1. Extensive postsurgical changes to include previous gastric bypass surgery,; hysterectomy, and right colon resection.; 2. Focal area of narrowing within rectosigmoid colon which could represent spasm; or fixed narrowing. Interval followup is recommended; 3. Previous bilateral laminectomies and posterior fusion at L4 and L5. There; are bilateral posterior pedicular screws with vertical stabilization rods noted; from L4-S1.; 4. Kidneys are without hydronephrosis bilaterally. Bladder is contracted.; ; ; ; ; ; ; Unreviewed; Outcome: 18:03 Discharge ordered by Provider. ef1 18:45 Discharge Assessment: patient administered narcotics - yes. Pt provided with safe ka4 discharge. The following High Risk Discharge criteria are identified: None. Discharged to home ambulatory. Condition: good Condition: stable. CT Study completed. Property :Personal belongings accompany Pt. 18:47 Patient left the ED. ka4 Signatures: Dispatcher [employer] EDMS Zo Mckinnon, Cruz Danielle Erica, PASharonC PA-C ef1 Coco Soliz RN RN rs3 Carmina Lange RN RN Carley Macias RN RN ttYovany Casillas gr2 Zoya Crain,ASSOCIATE PROFESSOR OF GEOLOGY ASSOCIATE PROFESSOR OF GEOLOGY ka4 Bea, Robby ek2 Chart Complete MTDD
--- NOTE | 2016-04-20 19:49 | EDDOCDS ---
Physician Documentation [facility] Name: Miranda Ferreira Age: 45 yrs Sex: Female : 1970 Arrival Date: 04/18/2016 Time: 14:16 Bed I5 / M5 Private MD: Tony Cordero J Disposition: 04/18/16 18:03 Discharged to Home/Self Care. Impression: Other abdominal pain - Right Sided with Right Flank Pain. - Condition is Stable. - Discharge Instructions: Abdominal Pain, Adult, [id number], Flank Pain, [id number]. - Prescriptions for Bentyl 20 mg Oral Tablet - take 1 tablet by ORAL route every 6 hours As needed; 20 tablet. ZOFRAN ODT 4 mg - dissolve 1 tablet by ORAL route 4 times per day As needed do not chew, do not swallow whole; 10 tablet. - Medication Reconciliation, Local Pharmacy Hours form. - Follow up: Tony Cordero; When: 1 - 2 days; Reason: Recheck today's complaints, Continuance of care. Follow up: Emergency Department; Reason: Worsening of conditions. - Problem is new. - Symptoms have improved. Historical: - Allergies: Avelox (Hives); ivp dye (Anaphylaxis); Lisinopril (Hives); Phenobarbital (Anaphylaxis); Ativan (Anaphylaxis); Aspirin (Anaphylaxis); PROPOXYPHENE (Anaphylaxis); Soma (Hives); nabumetone (Hives); Lyrica (Hives); Topamax (Hives); Tramadol HCl (Vomit); [id number] Antimigraine Agents (Anaphylaxis); - Home Meds: 1. Tylenol 325 mg Oral tab 2 tabs as needed (Last dose: 04/18/2016 07:30) - PMHx: uterine cancer; Migraines; Diabetes - NIDDM: controlled; - PSHx: Gastric Bypass; Appendectomy; back surgery x 2; Hysterectomy; neck surgery; Bowel resection (October 2013); - Social history: Smoking status: Patient states was never smoker of tobacco. No barriers to communication noted, The patient speaks fluent Luxembourgish, Speaks appropriately for age. - Family history: Not pertinent. - : The pt / caregiver states he / she is not on anticoagulants. Home medication list is obtained from the patient. - Exposure Risk Screening:: None identified. 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 4 in. (162.56 cm) (R); Pain 10/10; 15:16 BP 166 / 94 RA Sitting (auto/reg); Pulse 106; Resp 18; Temp 97.3(O); Pulse Ox 100% on ka4 R/A; Pain 9/10; 18:41 BP 129 / 70 RA Sitting (auto/reg); Pulse 88 MON; Resp 18 S; Temp 97.9(O); Pulse Ox 98% ka4 on R/A; Pain 7/10; 14:19 Body Mass Index 20.60 (54.43 kg, 162.56 cm) gr2 MDM: 16:14 NS 0.9% 1000 ml IV at bolus once ordered. ef1 16:14 Ondansetron 4 mg IVP once ordered. ef1 16:14 Undress patient appropriately for examination ordered. ef1 16:15 Amylase Ordered. EDMS 16:15 Basic Metabolic Profile Ordered. EDMS 16:15 CBC with Diff Ordered. EDMS 16:15 Lipase Ordered. EDMS 16:15 Liver Profile Ordered. EDMS 16:15 Urinalysis Ordered. EDMS 16:15 Urine Culture Ordered. EDMS 16:15 CT ABD & PELVIS: No Contrast Ordered. EDMS 16:15 NOTHING BY MOUTH+DIET ordered. EDMS 16:36 Financial registration complete. zo 16:38 [facility] Payment Agreement was scanned into [employer] and attached to record. zo 16:48 morphine 4 mg IVP once ordered. ef1 17:52 Amylase Reviewed. ef1 17:52 Basic Metabolic Profile Reviewed. ef1 17:52 CBC with Diff Reviewed. ef1 17:52 Liver Profile Reviewed. ef1 17:52 Urinalysis Reviewed. ef1 17:52 Lipase Reviewed. ef1 17:57 CBC with Diff Reviewed. ef1 17:57 RBC MORPH PROF NO CHARGE Reviewed. ef1 18:02 Dicyclomine 20 mg PO once ordered. ef1 18:02 oxyCODONE-acetaminophen 5 mg-325 mg 2 tabs PO once ordered. ef1 04/19 08:07 T-Sheet-- Draft Copy was scanned into [employer] and attached to record. gb 13:27 Radiology Report was scanned into [employer] and attached to record. gb Administered Medications: 04/18 16:46 Drug: NS 0.9% 1000 ml [sodium chloride 0.9 % intravenous solution] Route: IV; Rate: rs3 bolus; Site: left antecubital; 16:46 Drug: Ondansetron 4 mg [ondansetron HCl 2 mg/mL intravenous solution (2 mL)] Route: rs3 IVP; Site: left antecubital; 18:45 Follow up: Response: Nausea is decreased ka4 17:08 Drug: morphine 4 mg [morphine 4 mg/mL intravenous cartridge (1 mL)] Route: IVP; Site: rs3 left antecubital; 18:45 Follow up: Response: No significant change. ka4 18:17 Drug: Dicyclomine 20 mg [dicyclomine 10 mg capsule (2 caps)] Route: PO; ka4 18:44 Follow up: Response: No Adverse Reaction ka4 18:17 Drug: oxyCODONE-acetaminophen 2 tabs [oxycodone-acetaminophen 5 mg-325 mg tablet (2 ka4 tabs)] Route: PO; 18:44 Follow up: Response: Pain is decreased ka4 Signatures: Dispatcher [employer] EDMS Zo Mckinnon, Josesito Reg Cruz Bolton Erica, PA-C PA-C ef1 Carmina Lange RN RN Zoya Lui LPN LPN ka4 Coco Soliz RN rs3 The chart was reviewed and I authenticate all verbal orders and agree with the evaluation and treatment provided.Attachments: 16:38 [facility] Payment Agreement zo 04/19 08:07 T-Sheet-- Draft Copy gb Chart Complete MTDD
--- NOTE | 2016-04-20 19:49 | EDDOCDS ---
Physician Documentation [facility] Name: Miranda Ferreira Age: 45 yrs Sex: Female : 1970 Arrival Date: 04/18/2016 Time: 14:16 Bed I5 / M5 Private MD: Tony Cordero J Disposition: 04/18/16 18:03 Discharged to Home/Self Care. Impression: Other abdominal pain - Right Sided with Right Flank Pain. - Condition is Stable. - Discharge Instructions: Abdominal Pain, Adult, Rlao-lc-Olol, Flank Pain, Yqrw-tg-Xduv. - Prescriptions for Bentyl 20 mg Oral Tablet - take 1 tablet by ORAL route every 6 hours As needed; 20 tablet. ZOFRAN ODT 4 mg - dissolve 1 tablet by ORAL route 4 times per day As needed do not chew, do not swallow whole; 10 tablet. - Medication Reconciliation, Local Pharmacy Hours form. - Follow up: Tony Cordero; When: 1 - 2 days; Reason: Recheck today's complaints, Continuance of care. Follow up: Emergency Department; Reason: Worsening of conditions. - Problem is new. - Symptoms have improved. Historical: - Allergies: Avelox (Hives); ivp dye (Anaphylaxis); Lisinopril (Hives); Phenobarbital (Anaphylaxis); Ativan (Anaphylaxis); Aspirin (Anaphylaxis); PROPOXYPHENE (Anaphylaxis); Soma (Hives); nabumetone (Hives); Lyrica (Hives); Topamax (Hives); Tramadol HCl (Vomit); Powtrhrb-9-[id number] Antimigraine Agents (Anaphylaxis); - Home Meds: 1. Tylenol 325 mg Oral tab 2 tabs as needed (Last dose: 04/18/2016 07:30) - PMHx: uterine cancer; Migraines; Diabetes - NIDDM: controlled; - PSHx: Gastric Bypass; Appendectomy; back surgery x 2; Hysterectomy; neck surgery; Bowel resection (October 2013); - Social history: Smoking status: Patient states was never smoker of tobacco. No barriers to communication noted, The patient speaks fluent Croatian, Speaks appropriately for age. - Family history: Not pertinent. - : The pt / caregiver states he / she is not on anticoagulants. Home medication list is obtained from the patient. - Exposure Risk Screening:: None identified. 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 4 in. (162.56 cm) (R); Pain 10/10; 15:16 BP 166 / 94 RA Sitting (auto/reg); Pulse 106; Resp 18; Temp 97.3(O); Pulse Ox 100% on ka4 R/A; Pain 9/10; 18:41 BP 129 / 70 RA Sitting (auto/reg); Pulse 88 MON; Resp 18 S; Temp 97.9(O); Pulse Ox 98% ka4 on R/A; Pain 7/10; 14:19 Body Mass Index 20.60 (54.43 kg, 162.56 cm) gr2 MDM: 16:14 NS 0.9% 1000 ml IV at bolus once ordered. ef1 16:14 Ondansetron 4 mg IVP once ordered. ef1 16:14 Undress patient appropriately for examination ordered. ef1 16:15 Amylase Ordered. EDMS 16:15 Basic Metabolic Profile Ordered. EDMS 16:15 CBC with Diff Ordered. EDMS 16:15 Lipase Ordered. EDMS 16:15 Liver Profile Ordered. EDMS 16:15 Urinalysis Ordered. EDMS 16:15 Urine Culture Ordered. EDMS 16:15 CT ABD & PELVIS: No Contrast Ordered. EDMS 16:15 NOTHING BY MOUTH+DIET ordered. EDMS 16:36 Financial registration complete. zo 16:38 [facility] Payment Agreement was scanned into [employer] and attached to record. zo 16:48 morphine 4 mg IVP once ordered. ef1 17:52 Amylase Reviewed. ef1 17:52 Basic Metabolic Profile Reviewed. ef1 17:52 CBC with Diff Reviewed. ef1 17:52 Liver Profile Reviewed. ef1 17:52 Urinalysis Reviewed. ef1 17:52 Lipase Reviewed. ef1 17:57 CBC with Diff Reviewed. ef1 17:57 RBC MORPH PROF NO CHARGE Reviewed. ef1 18:02 Dicyclomine 20 mg PO once ordered. ef1 18:02 oxyCODONE-acetaminophen 5 mg-325 mg 2 tabs PO once ordered. ef1 04/19 08:07 T-Sheet-- Draft Copy was scanned into [employer] and attached to record. gb 13:27 Radiology Report was scanned into [employer] and attached to record. gb Administered Medications: 04/18 16:46 Drug: NS 0.9% 1000 ml [sodium chloride 0.9 % intravenous solution] Route: IV; Rate: rs3 bolus; Site: left antecubital; 16:46 Drug: Ondansetron 4 mg [ondansetron HCl 2 mg/mL intravenous solution (2 mL)] Route: rs3 IVP; Site: left antecubital; 18:45 Follow up: Response: Nausea is decreased ka4 17:08 Drug: morphine 4 mg [morphine 4 mg/mL intravenous cartridge (1 mL)] Route: IVP; Site: rs3 left antecubital; 18:45 Follow up: Response: No significant change. ka4 18:17 Drug: Dicyclomine 20 mg [dicyclomine 10 mg capsule (2 caps)] Route: PO; ka4 18:44 Follow up: Response: No Adverse Reaction ka4 18:17 Drug: oxyCODONE-acetaminophen 2 tabs [oxycodone-acetaminophen 5 mg-325 mg tablet (2 ka4 tabs)] Route: PO; 18:44 Follow up: Response: Pain is decreased ka4 Signatures: Dispatcher [employer] EDMS Zo Mckinnon, Josesito Reg Cruz Bolton Erica, PA-C PA-C ef1 Carmina Lange RN RN Zoya Lui LPN LPN ka4 Coco Soliz RN rs3 The chart was reviewed and I authenticate all verbal orders and agree with the evaluation and treatment provided.Attachments: 16:38 [facility] Payment Agreement zo 04/19 08:07 T-Sheet-- Draft Copy gb Chart Complete MTDD
--- NOTE | 2016-04-23 13:23 | EDDOCDS ---
Physician Documentation [facility] Name: Miranda Ferreira Age: 45 yrs Sex: Female : 1970 Arrival Date: 04/18/2016 Time: 14:16 Bed I5 / M5 Private MD: Tony Cordero J Disposition: 04/18/16 18:03 Discharged to Home/Self Care. Impression: Other abdominal pain - Right Sided with Right Flank Pain. - Condition is Stable. - Discharge Instructions: Abdominal Pain, Adult, Tjdx-wv-Wyvk, Flank Pain, Iyay-nj-Pclr. - Prescriptions for Bentyl 20 mg Oral Tablet - take 1 tablet by ORAL route every 6 hours As needed; 20 tablet. ZOFRAN ODT 4 mg - dissolve 1 tablet by ORAL route 4 times per day As needed do not chew, do not swallow whole; 10 tablet. - Medication Reconciliation, Local Pharmacy Hours form. - Follow up: Tony Cordero; When: 1 - 2 days; Reason: Recheck today's complaints, Continuance of care. Follow up: Emergency Department; Reason: Worsening of conditions. - Problem is new. - Symptoms have improved. Historical: - Allergies: Avelox (Hives); ivp dye (Anaphylaxis); Lisinopril (Hives); Phenobarbital (Anaphylaxis); Ativan (Anaphylaxis); Aspirin (Anaphylaxis); PROPOXYPHENE (Anaphylaxis); Soma (Hives); nabumetone (Hives); Lyrica (Hives); Topamax (Hives); Tramadol HCl (Vomit); Cnxpzjyn-1-CA3 Antimigraine Agents (Anaphylaxis); - Home Meds: 1. Tylenol 325 mg Oral tab 2 tabs as needed (Last dose: 04/18/2016 07:30) - PMHx: uterine cancer; Migraines; Diabetes - NIDDM: controlled; - PSHx: Gastric Bypass; Appendectomy; back surgery x 2; Hysterectomy; neck surgery; Bowel resection (October 2013); - Social history: Smoking status: Patient states was never smoker of tobacco. No barriers to communication noted, The patient speaks fluent Malawian, Speaks appropriately for age. - Family history: Not pertinent. - : The pt / caregiver states he / she is not on anticoagulants. Home medication list is obtained from the patient. - Exposure Risk Screening:: None identified. 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 4 in. (162.56 cm) (R); Pain 10/10; 15:16 BP 166 / 94 RA Sitting (auto/reg); Pulse 106; Resp 18; Temp 97.3(O); Pulse Ox 100% on ka4 R/A; Pain 9/10; 18:41 BP 129 / 70 RA Sitting (auto/reg); Pulse 88 MON; Resp 18 S; Temp 97.9(O); Pulse Ox 98% ka4 on R/A; Pain 7/10; 14:19 Body Mass Index 20.60 (54.43 kg, 162.56 cm) gr2 MDM: 16:14 NS 0.9% 1000 ml IV at bolus once ordered. ef1 16:14 Ondansetron 4 mg IVP once ordered. ef1 16:14 Undress patient appropriately for examination ordered. ef1 16:15 Amylase Ordered. EDMS 16:15 Basic Metabolic Profile Ordered. EDMS 16:15 CBC with Diff Ordered. EDMS 16:15 Lipase Ordered. EDMS 16:15 Liver Profile Ordered. EDMS 16:15 Urinalysis Ordered. EDMS 16:15 Urine Culture Ordered. EDMS 16:15 CT ABD & PELVIS: No Contrast Ordered. EDMS 16:15 NOTHING BY MOUTH+DIET ordered. EDMS 16:36 Financial registration complete. zo 16:38 [facility] Payment Agreement was scanned into [employer] and attached to record. zo 16:48 morphine 4 mg IVP once ordered. ef1 17:52 Amylase Reviewed. ef1 17:52 Basic Metabolic Profile Reviewed. ef1 17:52 CBC with Diff Reviewed. ef1 17:52 Liver Profile Reviewed. ef1 17:52 Urinalysis Reviewed. ef1 17:52 Lipase Reviewed. ef1 17:57 CBC with Diff Reviewed. ef1 17:57 RBC MORPH PROF NO CHARGE Reviewed. ef1 18:02 Dicyclomine 20 mg PO once ordered. ef1 18:02 oxyCODONE-acetaminophen 5 mg-325 mg 2 tabs PO once ordered. ef1 04/19 08:07 T-Sheet-- Draft Copy was scanned into [employer] and attached to record. gb 13:27 Radiology Report was scanned into [employer] and attached to record. gb Administered Medications: 04/18 16:46 Drug: NS 0.9% 1000 ml [sodium chloride 0.9 % intravenous solution] Route: IV; Rate: rs3 bolus; Site: left antecubital; 16:46 Drug: Ondansetron 4 mg [ondansetron HCl 2 mg/mL intravenous solution (2 mL)] Route: rs3 IVP; Site: left antecubital; 18:45 Follow up: Response: Nausea is decreased ka4 17:08 Drug: morphine 4 mg [morphine 4 mg/mL intravenous cartridge (1 mL)] Route: IVP; Site: rs3 left antecubital; 18:45 Follow up: Response: No significant change. ka4 18:17 Drug: Dicyclomine 20 mg [dicyclomine 10 mg capsule (2 caps)] Route: PO; ka4 18:44 Follow up: Response: No Adverse Reaction ka4 18:17 Drug: oxyCODONE-acetaminophen 2 tabs [oxycodone-acetaminophen 5 mg-325 mg tablet (2 ka4 tabs)] Route: PO; 18:44 Follow up: Response: Pain is decreased ka4 Addendum: 04/23/2016 13:22 Radiology Callback: Radiology results faxed to primary care physician/provider. dr horace cordero faxed formal report of ct abd/p for [facility]. Signatures: Dispatcher [facility] Jesús Plunkett MD MD ml Barnhardt, Gloria, Reg Reg Cruz Bolton Erica, PA-C PA-C ef1 Carmina LangeRN RN Zoya Lui LPN LPN ka4 Coco Soliz RN rs3 The chart was reviewed and I authenticate all verbal orders and agree with the evaluation and treatment provided.Attachments: 04/18 16:38 [facility] Payment Agreement zo 04/19 08:07 T-Sheet-- Draft Copy gb MTDD
--- NOTE | 2016-04-23 13:23 | EDDOCDS ---
Physician Documentation [facility] Name: Miranda Ferreira Age: 45 yrs Sex: Female : 1970 Arrival Date: 04/18/2016 Time: 14:16 Bed I5 / M5 Private MD: Tony Cordero J Disposition: 04/18/16 18:03 Discharged to Home/Self Care. Impression: Other abdominal pain - Right Sided with Right Flank Pain. - Condition is Stable. - Discharge Instructions: Abdominal Pain, Adult, Iean-ji-Iict, Flank Pain, Guic-yx-Uxmi. - Prescriptions for Bentyl 20 mg Oral Tablet - take 1 tablet by ORAL route every 6 hours As needed; 20 tablet. ZOFRAN ODT 4 mg - dissolve 1 tablet by ORAL route 4 times per day As needed do not chew, do not swallow whole; 10 tablet. - Medication Reconciliation, Local Pharmacy Hours form. - Follow up: Tony Cordero; When: 1 - 2 days; Reason: Recheck today's complaints, Continuance of care. Follow up: Emergency Department; Reason: Worsening of conditions. - Problem is new. - Symptoms have improved. Historical: - Allergies: Avelox (Hives); ivp dye (Anaphylaxis); Lisinopril (Hives); Phenobarbital (Anaphylaxis); Ativan (Anaphylaxis); Aspirin (Anaphylaxis); PROPOXYPHENE (Anaphylaxis); Soma (Hives); nabumetone (Hives); Lyrica (Hives); Topamax (Hives); Tramadol HCl (Vomit); Oeovrids-9-OJ3 Antimigraine Agents (Anaphylaxis); - Home Meds: 1. Tylenol 325 mg Oral tab 2 tabs as needed (Last dose: 04/18/2016 07:30) - PMHx: uterine cancer; Migraines; Diabetes - NIDDM: controlled; - PSHx: Gastric Bypass; Appendectomy; back surgery x 2; Hysterectomy; neck surgery; Bowel resection (October 2013); - Social history: Smoking status: Patient states was never smoker of tobacco. No barriers to communication noted, The patient speaks fluent French, Speaks appropriately for age. - Family history: Not pertinent. - : The pt / caregiver states he / she is not on anticoagulants. Home medication list is obtained from the patient. - Exposure Risk Screening:: None identified. 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 4 in. (162.56 cm) (R); Pain 10/10; 15:16 BP 166 / 94 RA Sitting (auto/reg); Pulse 106; Resp 18; Temp 97.3(O); Pulse Ox 100% on ka4 R/A; Pain 9/10; 18:41 BP 129 / 70 RA Sitting (auto/reg); Pulse 88 MON; Resp 18 S; Temp 97.9(O); Pulse Ox 98% ka4 on R/A; Pain 7/10; 14:19 Body Mass Index 20.60 (54.43 kg, 162.56 cm) gr2 MDM: 16:14 NS 0.9% 1000 ml IV at bolus once ordered. ef1 16:14 Ondansetron 4 mg IVP once ordered. ef1 16:14 Undress patient appropriately for examination ordered. ef1 16:15 Amylase Ordered. EDMS 16:15 Basic Metabolic Profile Ordered. EDMS 16:15 CBC with Diff Ordered. EDMS 16:15 Lipase Ordered. EDMS 16:15 Liver Profile Ordered. EDMS 16:15 Urinalysis Ordered. EDMS 16:15 Urine Culture Ordered. EDMS 16:15 CT ABD & PELVIS: No Contrast Ordered. EDMS 16:15 NOTHING BY MOUTH+DIET ordered. EDMS 16:36 Financial registration complete. zo 16:38 [facility] Payment Agreement was scanned into [employer] and attached to record. zo 16:48 morphine 4 mg IVP once ordered. ef1 17:52 Amylase Reviewed. ef1 17:52 Basic Metabolic Profile Reviewed. ef1 17:52 CBC with Diff Reviewed. ef1 17:52 Liver Profile Reviewed. ef1 17:52 Urinalysis Reviewed. ef1 17:52 Lipase Reviewed. ef1 17:57 CBC with Diff Reviewed. ef1 17:57 RBC MORPH PROF NO CHARGE Reviewed. ef1 18:02 Dicyclomine 20 mg PO once ordered. ef1 18:02 oxyCODONE-acetaminophen 5 mg-325 mg 2 tabs PO once ordered. ef1 04/19 08:07 T-Sheet-- Draft Copy was scanned into [employer] and attached to record. gb 13:27 Radiology Report was scanned into [employer] and attached to record. gb Administered Medications: 04/18 16:46 Drug: NS 0.9% 1000 ml [sodium chloride 0.9 % intravenous solution] Route: IV; Rate: rs3 bolus; Site: left antecubital; 16:46 Drug: Ondansetron 4 mg [ondansetron HCl 2 mg/mL intravenous solution (2 mL)] Route: rs3 IVP; Site: left antecubital; 18:45 Follow up: Response: Nausea is decreased ka4 17:08 Drug: morphine 4 mg [morphine 4 mg/mL intravenous cartridge (1 mL)] Route: IVP; Site: rs3 left antecubital; 18:45 Follow up: Response: No significant change. ka4 18:17 Drug: Dicyclomine 20 mg [dicyclomine 10 mg capsule (2 caps)] Route: PO; ka4 18:44 Follow up: Response: No Adverse Reaction ka4 18:17 Drug: oxyCODONE-acetaminophen 2 tabs [oxycodone-acetaminophen 5 mg-325 mg tablet (2 ka4 tabs)] Route: PO; 18:44 Follow up: Response: Pain is decreased ka4 Addendum: 04/23/2016 13:22 Radiology Callback: Radiology results faxed to primary care physician/provider. dr horace cordero faxed formal report of ct abd/p for [facility]. Signatures: Dispatcher [facility] Jesús Plunkett MD MD ml Barnhardt, Gloria, Reg Reg Cruz Bolton Erica, PA-C PA-C ef1 Carmina LangeRN RN Zoya Lui LPN LPN ka4 Coco Soliz RN rs3 The chart was reviewed and I authenticate all verbal orders and agree with the evaluation and treatment provided.Attachments: 04/18 16:38 [facility] Payment Agreement zo 04/19 08:07 T-Sheet-- Draft Copy gb MTDD
--- NOTE | 2016-04-23 13:24 | EDDOCDS ---
Nurse's Notes [facility] Name: Miranda Ferreira Age: 45 yrs Sex: Female : 1970 Arrival Date: 04/18/2016 Time: 14:16 Bed I5 / M5 Private MD: Tony Cordero J Diagnosis: Other abdominal pain-Right Sided with Right Flank Pain Presentation: 04/18 14:22 Presenting complaint: Patient states: was suppose to have a hernia repair tomorrow but dsf it was canceled. Pt states the surgery was rescheduled for Friday. Pt states the pain has been severe the past 3 days and the nurses at [facility] told pt to go to [facility]. Pt states she has a spot on the right side of her abdomen and it was suppose to be biopsied today but unable to make it due to weather. Risk factors: the patient reports no vaginal bleeding. Adult Sepsis Screening: The patient does not have new or worsening altered mentation. Patient's respiratory rate is less than 22. Systolic blood pressure is greater than 100. Patient has a qSOFA score of 0- Negative Sepsis Screen. Suicide/Homicide risk assessment- the patient denies having any suicidal and/or homicidal ideations and does not present with any other emotional, behavioral or mental health complaints. Status: Patient is not a youth services specialist or dependent. Transition of care: patient was not received from another setting of care. 14:22 Acuity: ROSIO Level 3 dsf 14:22 Method Of Arrival: Walkin/Carried/Asstd dsf Triage Assessment: 14:31 General: Appears in no apparent distress, Behavior is appropriate for age, cooperative. dsf Pain: Location: abdomen Pain currently is 8 out of 10 on a pain scale. back, Quality of pain is described as pressure. HIV screening NA for this visit Offered previously. GI: Reports Pain is 9 out of 10 on a pain scale. 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 Tylenol 325 mg Oral tab 2 tabs as needed (Last dose: 04/18/2016 07:30) - PMHx: uterine cancer; Migraines; Diabetes - NIDDM: controlled; - PSHx: Gastric Bypass; Appendectomy; back surgery x 2; Hysterectomy; neck surgery; Bowel resection (October 2013); - Social history: Smoking status: Patient states was never smoker of tobacco. No barriers to communication noted, The patient speaks fluent Wolof, Speaks appropriately for age. - Family history: Not pertinent. - : The pt / caregiver states he / she is not on anticoagulants. Home medication list is obtained from the patient. - Exposure Risk Screening:: None identified. Screenin:09 Screening information is obtained from the patient. Fall risk: No risks identified. rs3 Assistance ADL's: requires no assistance with activities of daily living. Abuse/DV Screen: The patient / caregiver reports he/she is: not in a situation that causes fear, pain or injury. Nutritional screening: No deficits noted. Advance Directives: Currently, there is no health care proxy. home support is adequate. Assessment: 17:08 General: Appears in no apparent distress, Behavior is appropriate for age, cooperative. rs3 Pain: Location: abdomen. Respiratory: Airway is patent. GI: Abdomen is non- distended Bowel sounds present X 4 quads. Abd is soft and non tender X 4 quads. Reports upper abdominal pain, nausea. Derm: Skin is pink, warm & dry. 18:45 General: Appears uncomfortable, Behavior is appropriate for age, cooperative, pleasant. ka4 Pain: Location: abdomen Pain currently is 7 out of 10 on a pain scale. Neurological: Level of Consciousness is awake, alert, obeys commands, Oriented to person, place, time, Terrestrial Ecologist are equal bilaterally Moves all extremities. Gait is steady, Speech is normal, Facial symmetry appears normal, Facial symmetry: tongue is midline. Respiratory: Airway is patent Respiratory effort is even, unlabored, Respiratory pattern is regular, symmetrical. Derm: Skin is intact, is healthy with good turgor, Skin is pink, warm & dry. Vital Signs: 14:19 BP 161 / 81; Pulse 93; Resp 18 S; Temp 97.4(O); Pulse Ox 100% on R/A; Weight 54.43 kg gr2 (R); Height 5 ft. 4 in. (162.56 cm) (R); Pain 10/10; 15:16 BP 166 / 94 RA Sitting (auto/reg); Pulse 106; Resp 18; Temp 97.3(O); Pulse Ox 100% on ka4 R/A; Pain 9/10; 18:41 BP 129 / 70 RA Sitting (auto/reg); Pulse 88 MON; Resp 18 S; Temp 97.9(O); Pulse Ox 98% ka4 on R/A; Pain 7/10; 14:19 Body Mass Index 20.60 (54.43 kg, 162.56 cm) gr2 Vitals: 14:19 Log In Time: April 18, 2016 at 14:19. gr2 ED Course: 14:18 Patient visited by Yovany Wagoner. gr2 14:18 Patient moved to Waiting gr2 14:19 Tony Cordero is Private Physician. gr2 14:21 Patient visited by Yovany Wagoner. gr2 14:21 Patient moved to Pre RCE gr2 14:26 Triage Initiated dsf 15:15 Patient moved to Triage 2 ka4 15:19 Patient visited by Zoya Crain LPN. ka4 16:[address] PA-C is PHCP. ef1 16:04 Scarlet Alfred MD is Attending Physician. ef1 16:[address] Anais [address] PA-C. ef1 16:17 Patient moved to I5 / M5 ttb 16:[address] ka4 16:37 Amylase Sent. ka4 16:37 Basic Metabolic Profile Sent. ka4 16:37 CBC with Diff Sent. ka4 16:37 Liver Profile Sent. ka4 16:37 Lipase Sent. ka4 16:38 [facility] Payment Agreement was scanned into [employer] and attached to record. zo 16:38 Inserted saline lock: 20 gauge in left antecubital area and blood collected. The ka4 patient tolerated the procedure well. 16:[address] by Anais Lane PA-C. ef1 16:57 Patient moved to I5 / M5 ek2 17:19 [address] by Anais Lane PA-C. ef1 17:50 Patient visited by Anais Lane PA-C. ef1 18:03 Tony Cordero is Referral Physician. ef1 18:11 CT ABD & PELVIS: No Contrast Returned. EDMS 18:18 Patient visited by Zoya Crain LPN. ka4 18:45 The patient / caregiver is instructed regarding the plan of care and ED course. Patient ka4 has correct armband on for positive identification. 18:45 Discontinued IV lock intact, bleeding controlled, pressure dressing applied, No ka4 redness/swelling at site. No procedures done that require assistance. 04/19 08:07 T-Sheet-- Draft Copy was scanned into [employer] and attached to record. gb 13:27 Radiology Report was scanned into [employer] and attached to record. gb Administered Medications: 04/18 16:46 Drug: NS 0.9% 1000 ml [sodium chloride 0.9 % intravenous solution] Route: IV; Rate: rs3 bolus; Site: left antecubital; 16:46 Drug: Ondansetron 4 mg [ondansetron HCl 2 mg/mL intravenous solution (2 mL)] Route: rs3 IVP; Site: left antecubital; 18:45 Follow up: Response: Nausea is decreased ka4 17:08 Drug: morphine 4 mg [morphine 4 mg/mL intravenous cartridge (1 mL)] Route: IVP; Site: rs3 left antecubital; 18:45 Follow up: Response: No significant change. ka4 18:17 Drug: Dicyclomine 20 mg [dicyclomine 10 mg capsule (2 caps)] Route: PO; ka4 18:44 Follow up: Response: No Adverse Reaction ka4 18:17 Drug: oxyCODONE-acetaminophen 2 tabs [oxycodone-acetaminophen 5 mg-325 mg tablet (2 ka4 tabs)] Route: PO; 18:44 Follow up: Response: Pain is decreased ka4 Order Results: Lab Order: Amylase; SPEC'M 04/18/16 16:33 Test: AMYLASE; Value: 17; Range: 25-115; Abnormal: Below low normal; Units: U/L; Status: F Lab Order: Basic Metabolic Profile; SPEC'M 04/18/16 16:33 Test: GLUCOSE, FASTING; Value: 108; Range: 70-105; Abnormal: Above high normal; Units: MG/DL; Status: F Test: BLOOD UREA NITROGEN; Value: 10; Range: 7-18; Units: MG/DL; Status: F Test: CREATININE FOR GFR; Value: 0.76; Range: 0.55-1.02; Units: MG/DL; Status: F Test: GLOMERULAR FILTRATION RATE; Value: > 60.0; Range: >58; Status: F Test: SODIUM LEVEL; Value: 142; Range: 136-145; Units: MEQ/L; Status: F Test: POTASSIUM SERUM; Value: 3.5; Range: 3.5-5.1; Units: MEQ/L; Status: F Test: CHLORIDE LEVEL; Value: 106; Range: 98-107; Units: MEQ/L; Status: F Test: CARBON DIOXIDE LEVEL; Value: 26; Range: 21-32; Units: MEQ/L; Status: F Test: ANION GAP; Value: 10; Range: 8-16; Units: MEQ/L; Status: F Test: CALCIUM LEVEL; Value: 9.1; Range: 8.5-10.1; Units: MG/DL; Status: F Test Note: ; Units are mL/min/1.73 m2 Chronic Kidney Disease Staging per NKF: Stage I & II GFR >=60 Normal to Mildly Decreased Stage III GFR 30-59 Moderately Decreased Stage IV GFR 15-29 Severely Decreased Stage V GFR <15 Very Little GFR Left ESRD GFR <15 on SENIOR LINUX UNIX ADMINISTRATOR Lab Order: CBC with Diff; SPEC'M 04/18/16 16:33 Test: WHITE BLOOD COUNT; Value: 8.1; Range: 4.0-10.0; Units: K/mm3; Status: F Test: RED BLOOD COUNT; Value: 4.83; Range: 4.00-5.40; Units: M/mm3; Status: F Test: HEMOGLOBIN; Value: 9.9; Range: 12.0-16.0; Abnormal: Below low normal; Units: g/dl; Status: F Test: HEMATOCRIT; Value: 32.5; Range: 36.0-47.0; Abnormal: Below low normal; Units: %; Status: F Test: MEAN CORPUSCULAR VOLUME; Value: 67.2; Range: 80.0-96.0; Abnormal: Below low normal; Units: fl; Status: F Test: MEAN CORPUSCULAR HEMOGLOBIN; Value: 20.5; Range: 27.0-33.0; Abnormal: Below low normal; Units: pg; Status: F Test: MEAN CORPUSCULAR HGB CONC; Value: 30.5; Range: 32.0-36.5; Abnormal: Below low normal; Units: g/dl; Status: F Test: RED CELL DISTRIBUTION WIDTH; Value: 18.5; Range: 11.5-14.5; Abnormal: Above high normal; Units: %; Status: F Test: PLATELET COUNT, AUTOMATED; Value: 352; Range: 150-450; Units: k/mm3; Status: F Test: NEUTROPHILS %; Value: 72.2; Range: 36.0-66.0; Abnormal: Above high normal; Units: %; Status: F Test: LYMPH %; Value: 19.2; Range: 24.0-44.0; Abnormal: Below low normal; Units: %; Status: F Test: MONO %; Value: 5.2; Range: 0.0-5.0; Abnormal: Above high normal; Units: %; Status: F Test: EOS %; Value: 1.3; Range: 0.0-3.0; Units: %; Status: F Test: BASO %; Value: 0.8; Range: 0.0-1.0; Units: %; Status: F Test: LARGE UNSTAINED CELL %; Value: 1.4; Range: 0.0-4.0; Units: %; Status: F Test: NEUTROPHILS #; Value: 5.8; Range: 1.8-7.7; Units: K/mm3; Status: F Test: LYMPH #; Value: 1.7; Range: 1.5-4.5; Units: K/mm3; Status: F Test: MONO #; Value: 0.4; Range: 0.0-0.8; Units: K/mm3; Status: F Test: EOS #; Value: 0.1; Range: 0.0-0.50; Units: K/mm3; Status: F Test: BASO #; Value: 0.1; Range: 0.0-0.2; Units: K/mm3; Status: F Test: LARGE UNSTAINED CELL #; Value: 0.1; Range: 0.0-0.4; Units: K/mm3; Status: F Lab Order: Lipase; SPEC'M 04/18/16 16:33 Test: LIPASE; Value: 74; Range: 73-393; Units: U/L; Status: F Lab Order: Liver Profile; SPEC'M 04/18/16 16:33 Test: AST/SGOT; Value: 12; Range: 15-37; Abnormal: Below low normal; Units: U/L; Status: F Test: ALT/SGPT; Value: 15; Range: 12-78; Units: U/L; Status: F Test: ALKALINE PHOSPHATASE; Value: 192; Range: 45-117; Abnormal: Above high normal; Units: U/L; Status: F Test: BILIRUBIN,TOTAL; Value: 0.4; Range: 0.2-1.0; Units: MG/DL; Status: F Test: BILIRUBIN,DIRECT; Value: 0.1; Range: 0.0-0.2; Units: MG/DL; Status: F Test: TOTAL PROTEIN; Value: 7.6; Range: 6.4-8.2; Units: GM/DL; Status: F Test: ALBUMIN; Value: 4.0; Range: 3.2-5.2; Units: GM/DL; Status: F Test: ALBUMIN/GLOBULIN RATIO; Value: 1.11; Range: 1.00-1.93; Status: F Lab Order: Urinalysis; [facility] 04/18/16 16:20 Test: APPEARANCE, URINE; Value: CLEAR; Range: CLEAR; Status: F Test: COLOR, URINE; Value: STRAW; Range: YELLOW; Status: F Test: PH,URINE; Value: 6.0; Range: 5.0-9.0; Units: UNITS; Status: F Test: SPECIFIC GRAVITY URINE AUTO; Value: 1.006; Range: 1.002-1.035; Status: F Test: PROTEIN, URINE AUTO; Value: NEGATIVE; Range: NEGATIVE; Units: mg/dL; Status: F Test: GLUCOSE, URINE (UA) AUTO; Value: NEGATIVE; Range: NEGATIVE; Units: mg/dL; Status: F Test: KETONE, URINE AUTO; Value: NEGATIVE; Range: NEGATIVE; Units: mg/dL; Status: F Test: UROBILINOGEN, URINE AUTO; Value: 0.2; Range: 0.0-2.0; Units: mg/dL; Status: F Test: BILIRUBIN, URINE AUTO; Value: NEGATIVE; Range: NEGATIVE; Status: F Test: NITRITE, URINE AUTO; Value: NEGATIVE; Range: NEGATIVE; Status: F Test: LEUKOCYTE ESTERASE, URINE AUTO; Value: NEGATIVE; Range: NEGATIVE; Status: F Test: BLOOD, URINE BLOOD; Value: NEGATIVE; Range: NEGATIVE; Status: F Test: WBC, URINE AUTO; Value: 2; Range: 0-3; Units: /HPF; Status: F Test: RBC, URINE AUTO; Value: 2; Range: 0-3; Units: /HPF; Status: F Test: BACTERIA, URINE AUTO; Value: 1+; Range: NEGATIVE; Abnormal: Above high normal; Status: F Test: SQUAMOUS EPITHELIAL CELL UR AU; Value: 1; Range: 0-6; Units: /HPF; Status: F Test: MUCUS, URINE; Value: SMALL; Range: NEGATIVE; Status: F Test: HYALINE CAST, URINE AUTO; Value: 0; Range: 0-1; Units: /LPF; Status: F Lab Order: Urine Culture; SPEC'M 04/18/16 16:20 Test: URINE CULTURE; Value: URINE CULTURE RESULT NO GROWTH; Status: F Lab Order: RBC MORPH PROF NO CHARGE; SPEC'M 04/18/16 16:33 Test: PLATELET ESTIMATE; Range: NORMAL; Status: I Test: HYPOCHROMASIA; Value: 2+; Status: F Test: ANISOCYTOSIS; Value: 2+; Status: F Test: MICROCYTOSIS; Value: 3+; Status: F Test: PLATELET ESTIMATE; Value: NORMAL; Range: NORMAL; Status: F Radiology Order: CT ABD & PELVIS: No Contrast Test: CT ABD & PELVIS: No Contrast REASON FOR EXAMINATION: abd pain and flank pain; CT of the abdomen and pelvis 04/18/2016 performed without contrast; ; Indication: Abdominal pain and flank pain; ; Comparison: CT of the abdomen and pelvis 11/25/2014 performed at [facility].; ; Technique: 3 mm continuous spiral axial sections were performed through the; abdomen and pelvis without IV or oral contrast administration.; ; Findings: A 1.4 cm bulla is identified in the right lower lobe above the right; hemidiaphragm.; ; The liver , spleen are unremarkable. Kidneys are without hydronephrosis. Mild; atrophic changes are seen within the pancreas. The pancreatic duct is; visualized, slightly ectatic yet not distended. Gallbladder is not visualized and; may be surgically absent. Extensive postsurgical changes are noted in left upper; quadrant consistent with prior gastric bypass surgery. The stomach is; contracted. Few air fluid levels in mildly generous small bowel loops are seen; in left upper quadrant.; ; The abdominal aorta is of normal course and caliber. There are no pathologically; enlarged retroperitoneal nodes. Focal circumferential area of narrowing is seen; within the rectosigmoid colon, identified on image 111 series 201 which could; represent spasm or fixed narrowing. There is generalized under distension within; the transverse colon. There are findings consistent with a prior ileocolic; anastomoses in region of the ascending colon.; ; Bladder is contracted. Uterus is absent. There are no visualized pelvic masses.; ; Patient has previous bilateral posterior laminectomies at L4, L5 levels. There; has been previous disc cage placement at L4-5, and L5 -S1, with bilateral; posterior pedicular fusion from L4 through S1. Alignment is anatomic.; ; Impression1. Extensive postsurgical changes to include previous gastric bypass; surgery, hysterectomy, and right colon resection.; ; 2. Focal area of narrowing within rectosigmoid colon which could represent spasm; or fixed narrowing. Interval followup is recommended.; ; 3. Previous bilateral laminectomies and posterior fusion at L4 and L5. There; are bilateral posterior pedicular screws with vertical stabilization rods noted; from L4-S1.; ; 4. Kidneys are without hydronephrosis bilaterally. Bladder is contracted.; ; ; ; ; Signed by; Shelly Wing MD 04/21/2016 08:49 P; Outcome: 18:03 Discharge ordered by Provider. ef1 18:45 Discharge Assessment: patient administered narcotics - yes. Pt provided with safe ka4 discharge. The following High Risk Discharge criteria are identified: None. Discharged to home ambulatory. Condition: good Condition: stable. CT Study completed. Property :Personal belongings accompany Pt. 18:47 Patient left the ED. ka4 Signatures: Dispatcher [employer] EDMS Zo Mckinnon, Josesito Reg Cruz Bolton Erica, PA-C PA-C ef1 Coco Soliz RN RN rs3 Carmina Lange,RN RN dsf Carley Hernandez, RN RN ttb Yovany Wagoner gr2 Zoya Crain,MARYJANE SCALE ATTENDANT ka4 Robby Figueredo ek2 Chart Complete MTDD
--- NOTE | 2016-04-23 13:24 | EDDOCDS ---
Physician Documentation [facility] Name: Miranda Ferreira Age: 45 yrs Sex: Female : 1970 Arrival Date: 04/18/2016 Time: 14:16 Bed I5 / M5 Private MD: Tony Cordero J Disposition: 04/18/16 18:03 Discharged to Home/Self Care. Impression: Other abdominal pain - Right Sided with Right Flank Pain. - Condition is Stable. - Discharge Instructions: Abdominal Pain, Adult, [id number], Flank Pain, Hpxd-to-[id number]. - Prescriptions for Bentyl 20 mg Oral Tablet - take 1 tablet by ORAL route every 6 hours As needed; 20 tablet. ZOFRAN ODT 4 mg - dissolve 1 tablet by ORAL route 4 times per day As needed do not chew, do not swallow whole; 10 tablet. - Medication Reconciliation, Local Pharmacy Hours form. - Follow up: Tony Cordero; When: 1 - 2 days; Reason: Recheck today's complaints, Continuance of care. Follow up: Emergency Department; Reason: Worsening of conditions. - Problem is new. - Symptoms have improved. Historical: - Allergies: Avelox (Hives); ivp dye (Anaphylaxis); Lisinopril (Hives); Phenobarbital (Anaphylaxis); Ativan (Anaphylaxis); Aspirin (Anaphylaxis); PROPOXYPHENE (Anaphylaxis); Soma (Hives); nabumetone (Hives); Lyrica (Hives); Topamax (Hives); Tramadol HCl (Vomit); [id number] Antimigraine Agents (Anaphylaxis); - Home Meds: 1. Tylenol 325 mg Oral tab 2 tabs as needed (Last dose: 04/18/2016 07:30) - PMHx: uterine cancer; Migraines; Diabetes - NIDDM: controlled; - PSHx: Gastric Bypass; Appendectomy; back surgery x 2; Hysterectomy; neck surgery; Bowel resection (October 2013); - Social history: Smoking status: Patient states was never smoker of tobacco. No barriers to communication noted, The patient speaks fluent Palauan, Speaks appropriately for age. - Family history: Not pertinent. - : The pt / caregiver states he / she is not on anticoagulants. Home medication list is obtained from the patient. - Exposure Risk Screening:: None identified. 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 4 in. (162.56 cm) (R); Pain 10/10; 15:16 BP 166 / 94 RA Sitting (auto/reg); Pulse 106; Resp 18; Temp 97.3(O); Pulse Ox 100% on ka4 R/A; Pain 9/10; 18:41 BP 129 / 70 RA Sitting (auto/reg); Pulse 88 MON; Resp 18 S; Temp 97.9(O); Pulse Ox 98% ka4 on R/A; Pain 7/10; 14:19 Body Mass Index 20.60 (54.43 kg, 162.56 cm) gr2 MDM: 16:14 NS 0.9% 1000 ml IV at bolus once ordered. ef1 16:14 Ondansetron 4 mg IVP once ordered. ef1 16:14 Undress patient appropriately for examination ordered. ef1 16:15 Amylase Ordered. EDMS 16:15 Basic Metabolic Profile Ordered. EDMS 16:15 CBC with Diff Ordered. EDMS 16:15 Lipase Ordered. EDMS 16:15 Liver Profile Ordered. EDMS 16:15 Urinalysis Ordered. EDMS 16:15 Urine Culture Ordered. EDMS 16:15 CT ABD & PELVIS: No Contrast Ordered. EDMS 16:15 NOTHING BY MOUTH+DIET ordered. EDMS 16:36 Financial registration complete. zo 16:38 [facility] Payment Agreement was scanned into [employer] and attached to record. zo 16:48 morphine 4 mg IVP once ordered. ef1 17:52 Amylase Reviewed. ef1 17:52 Basic Metabolic Profile Reviewed. ef1 17:52 CBC with Diff Reviewed. ef1 17:52 Liver Profile Reviewed. ef1 17:52 Urinalysis Reviewed. ef1 17:52 Lipase Reviewed. ef1 17:57 CBC with Diff Reviewed. ef1 17:57 RBC MORPH PROF NO CHARGE Reviewed. ef1 18:02 Dicyclomine 20 mg PO once ordered. ef1 18:02 oxyCODONE-acetaminophen 5 mg-325 mg 2 tabs PO once ordered. ef1 04/19 08:07 T-Sheet-- Draft Copy was scanned into [employer] and attached to record. gb 13:27 Radiology Report was scanned into [employer] and attached to record. gb Administered Medications: 04/18 16:46 Drug: NS 0.9% 1000 ml [sodium chloride 0.9 % intravenous solution] Route: IV; Rate: rs3 bolus; Site: left antecubital; 16:46 Drug: Ondansetron 4 mg [ondansetron HCl 2 mg/mL intravenous solution (2 mL)] Route: rs3 IVP; Site: left antecubital; 18:45 Follow up: Response: Nausea is decreased ka4 17:08 Drug: morphine 4 mg [morphine 4 mg/mL intravenous cartridge (1 mL)] Route: IVP; Site: rs3 left antecubital; 18:45 Follow up: Response: No significant change. ka4 18:17 Drug: Dicyclomine 20 mg [dicyclomine 10 mg capsule (2 caps)] Route: PO; ka4 18:44 Follow up: Response: No Adverse Reaction ka4 18:17 Drug: oxyCODONE-acetaminophen 2 tabs [oxycodone-acetaminophen 5 mg-325 mg tablet (2 ka4 tabs)] Route: PO; 18:44 Follow up: Response: Pain is decreased ka4 Addendum: 04/23/2016 13:22 Radiology Callback: Radiology results faxed to primary care physician/provider. dr horace cordero faxed formal report of ct abd/p for [facility]. Signatures: Dispatcher [facility] Jesús Plunkett MD MD ml Barnhardt, Gloria, Reg Reg Cruz Bolton Erica, PA-C PA-C ef1 Carmina LangeRN RN Zyoa Lui LPN LPN ka4 Coco Soliz RN rs3 The chart was reviewed and I authenticate all verbal orders and agree with the evaluation and treatment provided.Attachments: 04/18 16:38 [facility] Payment Agreement zo 04/19 08:07 T-Sheet-- Draft Copy gb Chart Complete MTDD
--- NOTE | 2016-04-23 13:24 | EDDOCDS ---
Physician Documentation [facility] Name: Miranda Ferreira Age: 45 yrs Sex: Female : 1970 Arrival Date: 04/18/2016 Time: 14:16 Bed I5 / M5 Private MD: Tony Cordero J Disposition: 04/18/16 18:03 Discharged to Home/Self Care. Impression: Other abdominal pain - Right Sided with Right Flank Pain. - Condition is Stable. - Discharge Instructions: Abdominal Pain, Adult, [id number], Flank Pain, [id number]. - Prescriptions for Bentyl 20 mg Oral Tablet - take 1 tablet by ORAL route every 6 hours As needed; 20 tablet. ZOFRAN ODT 4 mg - dissolve 1 tablet by ORAL route 4 times per day As needed do not chew, do not swallow whole; 10 tablet. - Medication Reconciliation, Local Pharmacy Hours form. - Follow up: Tony Cordero; When: 1 - 2 days; Reason: Recheck today's complaints, Continuance of care. Follow up: Emergency Department; Reason: Worsening of conditions. - Problem is new. - Symptoms have improved. Historical: - Allergies: Avelox (Hives); ivp dye (Anaphylaxis); Lisinopril (Hives); Phenobarbital (Anaphylaxis); Ativan (Anaphylaxis); Aspirin (Anaphylaxis); PROPOXYPHENE (Anaphylaxis); Soma (Hives); nabumetone (Hives); Lyrica (Hives); Topamax (Hives); Tramadol HCl (Vomit); [id number] Antimigraine Agents (Anaphylaxis); - Home Meds: 1. Tylenol 325 mg Oral tab 2 tabs as needed (Last dose: 04/18/2016 07:30) - PMHx: uterine cancer; Migraines; Diabetes - NIDDM: controlled; - PSHx: Gastric Bypass; Appendectomy; back surgery x 2; Hysterectomy; neck surgery; Bowel resection (October 2013); - Social history: Smoking status: Patient states was never smoker of tobacco. No barriers to communication noted, The patient speaks fluent Slovenian, Speaks appropriately for age. - Family history: Not pertinent. - : The pt / caregiver states he / she is not on anticoagulants. Home medication list is obtained from the patient. - Exposure Risk Screening:: None identified. 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 4 in. (162.56 cm) (R); Pain 10/10; 15:16 BP 166 / 94 RA Sitting (auto/reg); Pulse 106; Resp 18; Temp 97.3(O); Pulse Ox 100% on ka4 R/A; Pain 9/10; 18:41 BP 129 / 70 RA Sitting (auto/reg); Pulse 88 MON; Resp 18 S; Temp 97.9(O); Pulse Ox 98% ka4 on R/A; Pain 7/10; 14:19 Body Mass Index 20.60 (54.43 kg, 162.56 cm) gr2 MDM: 16:14 NS 0.9% 1000 ml IV at bolus once ordered. ef1 16:14 Ondansetron 4 mg IVP once ordered. ef1 16:14 Undress patient appropriately for examination ordered. ef1 16:15 Amylase Ordered. EDMS 16:15 Basic Metabolic Profile Ordered. EDMS 16:15 CBC with Diff Ordered. EDMS 16:15 Lipase Ordered. EDMS 16:15 Liver Profile Ordered. EDMS 16:15 Urinalysis Ordered. EDMS 16:15 Urine Culture Ordered. EDMS 16:15 CT ABD & PELVIS: No Contrast Ordered. EDMS 16:15 NOTHING BY MOUTH+DIET ordered. EDMS 16:36 Financial registration complete. zo 16:38 [facility] Payment Agreement was scanned into Sleep Number and attached to record. zo 16:48 morphine 4 mg IVP once ordered. ef1 17:52 Amylase Reviewed. ef1 17:52 Basic Metabolic Profile Reviewed. ef1 17:52 CBC with Diff Reviewed. ef1 17:52 Liver Profile Reviewed. ef1 17:52 Urinalysis Reviewed. ef1 17:52 Lipase Reviewed. ef1 17:57 CBC with Diff Reviewed. ef1 17:57 RBC MORPH PROF NO CHARGE Reviewed. ef1 18:02 Dicyclomine 20 mg PO once ordered. ef1 18:02 oxyCODONE-acetaminophen 5 mg-325 mg 2 tabs PO once ordered. ef1 04/19 08:07 T-Sheet-- Draft Copy was scanned into Sleep Number and attached to record. gb 13:27 Radiology Report was scanned into Sleep Number and attached to record. gb Administered Medications: 04/18 16:46 Drug: NS 0.9% 1000 ml [sodium chloride 0.9 % intravenous solution] Route: IV; Rate: rs3 bolus; Site: left antecubital; 16:46 Drug: Ondansetron 4 mg [ondansetron HCl 2 mg/mL intravenous solution (2 mL)] Route: rs3 IVP; Site: left antecubital; 18:45 Follow up: Response: Nausea is decreased ka4 17:08 Drug: morphine 4 mg [morphine 4 mg/mL intravenous cartridge (1 mL)] Route: IVP; Site: rs3 left antecubital; 18:45 Follow up: Response: No significant change. ka4 18:17 Drug: Dicyclomine 20 mg [dicyclomine 10 mg capsule (2 caps)] Route: PO; ka4 18:44 Follow up: Response: No Adverse Reaction ka4 18:17 Drug: oxyCODONE-acetaminophen 2 tabs [oxycodone-acetaminophen 5 mg-325 mg tablet (2 ka4 tabs)] Route: PO; 18:44 Follow up: Response: Pain is decreased ka4 Addendum: 04/23/2016 13:22 Radiology Callback: Radiology results faxed to primary care physician/provider. dr horace cordero faxed formal report of ct abd/p for [facility]. Signatures: Dispatcher [facility] Jesús Plunkett MD MD ml Barnhardt, Gloria, Reg Reg Cruz Bolton Erica, PA-C PA-C ef1 Carmina LangeRN RN Zoya Lui LPN LPN ka4 Coco Soliz RN rs3 The chart was reviewed and I authenticate all verbal orders and agree with the evaluation and treatment provided.Attachments: 04/18 16:38 [facility] Payment Agreement zo 04/19 08:07 T-Sheet-- Draft Copy gb Chart Complete MTDD
== END 2016-04-18 18:47 | disposition home or self-care (01) ==
LOC: M ED 14:16
DX: R11.0 Nausea (principal); R10.9 Unspecified abdominal pain; E11.9 Type 2 diabetes mellitus without complications; G43.909 Migraine, unspecified, not intractable, without status migrainosus; Z85.42 Personal history of malignant neoplasm of other parts of uterus; Z90.79 Acquired absence of other genital organ(s); Z90.49 Acquired absence of other specified parts of digestive tract; Z98.84 Bariatric surgery status; Z98.1 Arthrodesis status; Z88.1 Allergy status to other antibiotic agents; Z88.5 Allergy status to narcotic agent; Z88.6 Allergy status to analgesic agent; Z88.8 Allergy status to other drugs, medicaments and biological substances; Z91.041 Radiographic dye allergy status
CPT/HCPCS: 36415; 74176; 80048; 80076; 81001; 82150; 83690; 85025; 87086; 96374; 96375; 99284; J2405

== ENCOUNTER 2016-06-27 21:39 | Inpatient (IN) | payer BC, OTHER ==
[~2016-06-27] VITALS: Ht 152.4 cm; Wt 50.9 kg
[2016-06-27 23:29] LABS: BASO % 0.4 % (0.0-1.0); EOS # 0.1 K/mm3 (0.0-0.50); INR 0.94; LARGE UNSTAINED CELL # 0.2 K/mm3 (0.0-0.4); LARGE UNSTAINED CELL % 2.5 % (0.0-4.0); LYMPH # 2.1 K/mm3 (1.5-4.5); LYMPH % 36.5 % (24.0-44.0); MEAN CORPUSCULAR HEMOGLOBIN 19.8 pg (27.0-33.0); MEAN CORPUSCULAR HGB CONC 28.4 g/dl (32.0-36.5); MEAN CORPUSCULAR VOLUME 69.7 fl (80.0-96.0); MONO # 0.6 K/mm3 (0.0-0.8); NEUTROPHILS # 2.8 K/mm3 (1.8-7.7); NEUTROPHILS % 48.5 % (36.0-66.0); PLATELET COUNT, AUTOMATED 323 k/mm3 (150-450); RED CELL DISTRIBUTION WIDTH 16.4 % (11.5-14.5); RETIC HEMOGLOBIN CONTENT CHr 23.2 PG (24-36); RETICULOCYTE ABSOLUTE ADVIA212 55 x10(9)/L (17-77); WHITE BLOOD COUNT 5.8 K/mm3 (4.0-10.0)
[2016-06-27 23:30] LABS: ADD MORPHOLOGY? YES
[2016-06-27] MEDS ORDERED: LORazepam 2 MG/ML VIAL (J2060) As Ordered ONE (23:32)
[2016-06-27 23:38] LABS: ALBUMIN 3.1 GM/DL (3.2-5.2); ALBUMIN/GLOBULIN RATIO 0.86 (1.00-1.93); ALKALINE PHOSPHATASE 179 U/L (45-117); ALT/SGPT 21 U/L (12-78); ANION GAP 8 MEQ/L (8-16); AST/SGOT 24 U/L (15-37); BILIRUBIN,DIRECT < 0.1 MG/DL (0.0-0.2); BILIRUBIN,TOTAL 0.2 MG/DL (0.2-1.0); BLOOD UREA NITROGEN 14 MG/DL (7-18); CALCIUM LEVEL 7.9 MG/DL (8.5-10.1); CARBON DIOXIDE LEVEL 25 MEQ/L (21-32); CHLORIDE LEVEL 110 MEQ/L (98-107); CREATININE FOR GFR 0.81 MG/DL (0.55-1.02); FERRITIN 2 NG/ML (8-252); GLOMERULAR FILTRATION RATE > 60.0 (>58); GLUCOSE, FASTING 94 MG/DL (70-105); MAGNESIUM LEVEL 2.1 MG/DL (1.8-2.4); PERCENT SATURATION 2.2 % (13.2-37.4); POTASSIUM SERUM 3.6 MEQ/L (3.5-5.1); SODIUM LEVEL 143 MEQ/L (136-145); TOTAL IRON BINDING CAPACITY 500 UG/DL (250-450); TOTAL PROTEIN 6.7 GM/DL (6.4-8.2)
[2016-06-27 23:52] LABS: ANISOCYTOSIS 1+; HYPOCHROMASIA 2+; MICROCYTOSIS 2+
[2016-06-27 23:54] LABS: OVALOCYTES 1+; POIKILOCYTOSIS 1+
[2016-06-28] VITALS (18 sets, daily range): BP systolic 129–159; BP diastolic 72–99; PULSE 76–92
[2016-06-28] MEDS ORDERED: LORazepam 2 MG/ML VIAL (J2060) IV STA (00:21)
[2016-06-28] MEDS ORDERED: MORPHINE 4 MG/ML 1ML SYRINGE IV ONE (00:30)
[2016-06-28] MEDS ORDERED: ACETAMINOPHEN TAB 650MG DOSE (2X325MG) PO PRN (01:00)
--- NOTE | 2016-06-28 01:40 | REP ---
Clinical: Line placement . Comparison: 11/20/2010 . Findings: Right internal jugular line with tip in the SVC/right atrium. The mediastinum and cardiac silhouette are stable and within normal limits for portable technique. The lung conn are clear without acute consolidation, effusion, or pneumothorax. Skeletal structures are intact. Impression: Normal portable chest x-ray Right IJ line in satisfactory position. Signed by Alec Youssef MD 06/28/2016 01:32 A
--- NOTE | 2016-06-28 02:09 | HPEPDOC ---
General Date of Admission Jun 28, 2016 at 00:40 Chief Complaint The patient is a 45-year-old female Presented to the ER after she was found to be anemic at [facility]. History of Present Illness Patient is a 45 year old female with a PMHx of Migraine headaches, uterine CA (s/p hysterectomy) and gastric bypass surgery (7 years ago) who presented to the ER because of anemia. Patient had complaints of muscle spasms and lightheadedness and had 2 episodes of syncope in the last 2 days. She went to [facility] yesterday night and was told she was anemic at 7.7 yesterday. At that hospital they were unable to get IV access and unable to get blood product for transfusion. She was then sent home and advised to follow up at [facility]. She denies any chest pain or shortness of breath, but reports palpitations. She denies any blood in her urine or stool. She has had an EGD and colonoscopy done 1 year ago that was reported normal. She has had 7-8 episodes of transfusion in the last 4 years. Does not take any iron pills at home. Patient has had a hysterectomy and no longer has periods. Home Medications No Active Prescriptions or Reported Meds Allergies Coded Allergies: Aspirin (Verified Allergy, Severe, 06/27/16) throat swelling Contrast Media (Verified Allergy, Severe, 06/27/16) hives Penicillins (Verified Allergy, Severe, 06/27/16) throat swelling Propoxyphene (Verified Allergy, Severe, 06/27/16) throat swelling Sumatriptan (Verified Allergy, Severe, 06/27/16) swelling Lorazepam (Verified Allergy, Intermediate, 06/27/16) hives Moxifloxacin (Verified Allergy, Intermediate, 06/27/16) Carisoprodol (Verified Allergy, Mild, 06/27/16) hives Lisinopril (Verified Allergy, Mild, 06/27/16) hives Nabumetone (Verified Allergy, Mild, 06/27/16) hives Pregabalin (Verified Allergy, Mild, 06/27/16) hives Topiramate (Verified Allergy, Mild, 06/27/16) hives Tramadol (Verified Allergy, Mild, 06/27/16) nausea Phenobarbital (Verified Allergy, Unknown, 07/20/12) Past Medical History Medical History Migraine headaches, uterine CA (s/p hysterectomy) and gastric bypass surgery (7 years ago) Surgical History Upper neck disk replacement Lower back disk replacement Hysterectomy Gastric bypass 7 years ago Numerous abdominal hernia surgeries Family History - Mother with history of [place] and COPD - Father with history of stroke, emphysema and DM2 Social History - Denies the use of alcohol, tobacco or illicit drugs - Denies recent travel or sick contacts - Lives with - 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; 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 Review of Symptoms Other systems Constitutional: Denies weight loss, change in appetite, or recent trauma Eyes: No visual changes or eye pain Ears, Nose, Throat: Denies nose bleeds, or difficulty swallowing Cardiovascular: Denies chest pain, sweating, or orthopnea Respiratory: Denies cough, wheezing, or shortness of breath GI: Scottie nausea, vomiting, or constipation, Reports occasional diarrhea, Positive abdominal pain : Denies pain with urination or frequency Musculoskeletal: Denies joint pain or swelling Neuro / Psych: Denies muscle weakness or sensory loss Skin: No skin rashes noted All other review of systems negative; otherwise stated in history of present illness Vital Signs - Vitals: BP 144/77, HR 87, RR 19, Sat 99%RA, Temp 98.2F - General: Lying in bed, No acute distress, Speaking in full sentences, AAOx3 - HEENT: NC, AT, PERRLA, EOMI, + Conjunctival pallor - CVS: RRR, +S1S2, - Murmurs / rubs / gallops - Lungs: Fair air entry bilaterally, Clear to auscultation, No wheezing / rales / rhonchi - Abdomen: Soft, Non-distended, Non-tender, + Bowel sounds x 4 - Extremities: + PPx4, No lower extremity edema, No calf tenderness - Neuro: No focal motor or sensory deficit - Skin: No visible rashes Laboratory Data Labs 24H Laboratory Tests 2 06/27/16 22:40: Absolute Reticulocyte Count 55, Blood Urea Nitrogen 14, Creatinine 0.81, Sodium Level 143, Potassium Level 3.6, Chloride Level 110H, Carbon Dioxide Level 25, Calcium Level 7.9L, Aspartate Amino Transf (AST/SGOT) 24, Alanine Aminotransferase (ALT/SGPT) 21, Lactate Dehydrogenase 177, Alkaline Phosphatase 179H, Total Bilirubin 0.2, Direct Bilirubin < 0.1, Total Protein 6.7, Albumin 3.1L, Albumin/Globulin Ratio 0.86L, Anion Gap 8, Anisocytosis 1+, White Blood Count 5.8, Red Blood Count 3.78L, Hemoglobin 7.5L, Hematocrit 26.4L, Mean Corpuscular Volume 69.7L, Mean Corpuscular Hemoglobin 19.8L, Mean Corpuscular Hemoglobin Concent 28.4L, Red Cell Distribution Width 16.4H, Platelet Count 323 , Neutrophils (%) (Auto) 48.5, Lymphocytes (%) (Auto) 36.5, Monocytes (%) (Auto ) 10.0H, Eosinophils (%) (Auto) 2.0, Basophils (%) (Auto) 0.4, Neutrophils # ( Auto) 2.8, Lymphocytes # (Auto) 2.1, Monocytes # (Auto) 0.6, Eosinophils # (Auto ) 0.1, Basophils # (Auto) 0.0, Ferritin 2L, Glomerular Filtration Rate > 60.0, Hypochromasia 2+, Iron Level 11L, Large Unclassified Cells # 0.2, Large Unclassified Cells % 2.5, Magnesium Level 2.1, Microcytosis 2+, Ovalocytes 1+, Percent Reticulocyte Count 1.50, Platelet Estimate NORMAL, Poikilocytosis 1+, Prothromb Time International Ratio 0.94, Prothrombin Time 12.7, Reticulocyte Hgb Content (CHr) 23.2L, Total Iron Binding Capacity 500H, Transferrin % Saturation 2.2L 06/28/16 01:03: Urine Amorphous Sediment , Urine Appearance CLEAR, Urine Color COLORLESS, Urine pH 6.0, Urine Specific [place] 1.002, Urine Protein NEGATIVE, Urine Glucose (UA ) NEGATIVE, Urine Ketones NEGATIVE, Urine Urobilinogen 0.2, Urine Bilirubin NEGATIVE, Urine Leukocyte Esterase NEGATIVE, Urine Bacteria (Auto) 1+H, Urine Blood NEGATIVE, Urine Calcium Carbonate Cryst(Auto) , Urine Calcium Oxalate Cryst (Auto) , Urine Calcium Phosphate Marry (Auto) , Urine Cellular Casts , Urine Cystine Crystals , Urine Granular Casts (Auto) , Urine Hyaline Casts (Auto ) 0, Urine Leucine Crystals , Urine Mucus (Auto) SMALL, Urine Nitrite NEGATIVE, Urine Oval Fat Bodies (Auto) , Urine RBC (Auto) 1, Urine Renal Epithelial Cells , Urine Sperm (Auto) , Urine Squamous Epithelial Cells 1, Urine Transitional Epithelial Cells , Urine Trichomonas (Auto) , Urine Triple Phosphate Cryst (Auto ) , Urine Tyrosine Crystals , Urine Uric Acid Crystals (Auto) , Urine WBC (Auto ) 1, Urine Waxy Casts (Auto) , Urine Yeast-Like Cells (Auto) CBC/BMP Laboratory Tests 06/27/16 22:40 Calcium Level 7.9 L, Aspartate Amino Transf (AST/SGOT) 24, Alanine Aminotransferase (ALT/SGPT) 21, Lactate Dehydrogenase 177, Alkaline Phosphatase 179 H, Total Bilirubin 0.2, Direct Bilirubin < 0.1, Total Protein 6.7, Albumin 3.1 L, Red Blood Count 3.78 L, Mean Corpuscular Volume 69.7 L, Mean Corpuscular Hemoglobin 19.8 L, Mean Corpuscular Hemoglobin Concent 28.4 L, Red Cell Distribution Width 16.4 H, Neutrophils (%) (Auto) 48.5, Lymphocytes (%) (Auto) 36.5, Monocytes (%) (Auto) 10.0 H, Eosinophils (%) (Auto) 2.0, Basophils (%) ( Auto) 0.4, Neutrophils # (Auto) 2.8, Lymphocytes # (Auto) 2.1, Monocytes # (Auto ) 0.6, Eosinophils # (Auto) 0.1, Basophils # (Auto) 0.0 Plan / VTE VTE Prophylaxis Ordered?: Yes Plan Plan Symptomatic anemia likely 2/2 iron deficiency possibly 2/2 poor iron absorption 2/2 gastric bypass, possibly celiac disease - Presented to the ER because of anemia, inability to be treated at prior hospital - Physical reveals conjunctival pallor - Hg currently at 7.5 and MCV of 69.7 - Iron panel consistent with severe iron deficiency - Will type and screen and transfuse 2 untis PRBC - Will check serology for celiac - Will check CBC post transfusion - Will obtain old records for EGD and colonoscopy - Will need iron infusion prior to departure and iron supplementation as outpatient Migraine headaches - c/w Tylenol PRN Uterine CA - s/p hysterectomy) Gastric bypass surgery - Procedure done 7 years ago - Has not had any supplementation of vitamins - Will check B12, Folate and Vitamin D levels Gastrointestinal prophylaxis - Will start protonix DVT prophylaxis - Will start SCDs DARIEN OLIVER MD Jun 28, 2016 02:08
[2016-06-28] MEDS ORDERED: diphenhydrAMINE INJ 50MG/ML VIAL (J1200) IV ONE ×2 (06:30→09:00)
[2016-06-28] MEDS ORDERED: MORPHINE 10 MG/ML 1ML VIAL IV ONE (09:00)
[2016-06-28] MEDS ORDERED: METOCLOPRAMIDE INJ 10MG/2ML VIAL (J2765) IV ONE (09:00)
[2016-06-28 09:24] LABS: ALBUMIN 2.9 GM/DL (3.2-5.2); ALBUMIN/GLOBULIN RATIO 0.88 (1.00-1.93); ALKALINE PHOSPHATASE 151 U/L (45-117); ALT/SGPT 21 U/L (12-78); ANION GAP 9 MEQ/L (8-16); AST/SGOT 23 U/L (15-37); BILIRUBIN,TOTAL 0.7 MG/DL (0.2-1.0); BLOOD UREA NITROGEN 9 MG/DL (7-18); CALCIUM LEVEL 7.7 MG/DL (8.5-10.1); CARBON DIOXIDE LEVEL 27 MEQ/L (21-32); CHLORIDE LEVEL 110 MEQ/L (98-107); CREATININE FOR GFR 0.62 MG/DL (0.55-1.02); GLOMERULAR FILTRATION RATE > 60.0 (>58); GLUCOSE, FASTING 91 MG/DL (70-105); POTASSIUM SERUM 3.6 MEQ/L (3.5-5.1); SODIUM LEVEL 146 MEQ/L (136-145); TOTAL PROTEIN 6.2 GM/DL (6.4-8.2)
[2016-06-28 09:32] LABS: DIFF SLIDE NUMBER 98; MEAN CORPUSCULAR HEMOGLOBIN 22.6 pg (27.0-33.0); MEAN CORPUSCULAR VOLUME 73.1 fl (80.0-96.0); PLATELET COUNT, AUTOMATED 266 k/mm3 (150-450); WHITE BLOOD COUNT 4.3 K/mm3 (4.0-10.0)
[2016-06-28] MEDS: PANTOPRAZOLE 40MG TAB (PROTONIX) PO SCH (09:44)
[2016-06-28 10:05] LABS: ANISOCYTOSIS 1+; BASOPHILS 2 % (0-4); EOSINOPHILS 7 % (0-5); HYPOCHROMASIA 3+; MICROCYTOSIS 2+
[2016-06-28 10:06] LABS: OVALOCYTES 1+
[2016-06-28 10:19] LABS: FOLATE 7.5 NG/ML (>5.4); VITAMIN B12 LEVEL 382 PG/ML (247-911)
[2016-06-28] MEDS ORDERED: IRON SUCROSE 100 MG/5 ML INJ (J1756) IV ONE ×2 (14:00)
[2016-06-28] MEDS ORDERED: IRON SUCROSE 25 MG in NS 50 ML IV ONE (14:00)
[2016-06-28] MEDS ORDERED: KETOROLAC 30 MG/ML VIAL (J1885) IV SCH (15:00)
[2016-06-28] MEDS ORDERED: ACETAMINOPHEN 500 MG TAB PO PRN (15:00)
[2016-06-28] MEDS ORDERED: IRON SUCROSE 475 MG in NS 250 ML IV ONE (15:00)
[2016-06-28] MEDS ORDERED: ACETAMINOPHEN 650 MG SUPP PR ONE (16:15)
[2016-06-28] MEDS ORDERED: diphenhydrAMINE 50 MG CAP PO PRN (16:15)
[2016-06-28] MEDS: KETOROLAC 30 MG/ML VIAL (J1885) IV PRN (16:25)
[2016-06-28] MEDS ORDERED: methylPREDNISolone INJ 40 MG/1 ML VIAL (J2920) IV ONE (19:30)
[2016-06-28] MEDS: diphenhydrAMINE INJ 50MG/ML VIAL (J1200) IV PRN (21:38)
[2016-06-28] MEDS: SODIUM CHLORIDE 0.9% INJ 10 ML SYR IV SCH (22:00)
[2016-06-28] MEDS ORDERED: diphenhydrAMINE INJ 50MG/ML VIAL (J1200) IV STA (23:06)
[2016-06-28] MEDS ORDERED: methylPREDNISolone INJ 125 MG/2 ML VIAL (J2930) IV STA (23:06)
[2016-06-28] MEDS ORDERED: methylPREDNISolone INJ 40 MG/1 ML VIAL (J2920) As Ordered ONE (23:10)
[2016-06-29] VITALS (8 sets, daily range): BP systolic 108–139; BP diastolic 67–92
[2016-06-29] MEDS: SODIUM CHLORIDE 0.9% INJ 10 ML SYR IV SCH ×3 (05:06→19:58)
[2016-06-29 05:35] LABS: BASO % 0.2 % (0.0-1.0); EOS % 0.2 % (0.0-3.0); LARGE UNSTAINED CELL % 0.6 % (0.0-4.0); LYMPH # 0.8 K/mm3 (1.5-4.5); LYMPH % 12.2 % (24.0-44.0); MEAN CORPUSCULAR HEMOGLOBIN 22.6 pg (27.0-33.0); MEAN CORPUSCULAR HGB CONC 30.6 g/dl (32.0-36.5); MEAN CORPUSCULAR VOLUME 74.1 fl (80.0-96.0); MONO # 0.2 K/mm3 (0.0-0.8); MONO % 2.8 % (0.0-5.0); NEUTROPHILS # 5.5 K/mm3 (1.8-7.7); PLATELET COUNT, AUTOMATED 306 k/mm3 (150-450); RED CELL DISTRIBUTION WIDTH 17.1 % (11.5-14.5); WHITE BLOOD COUNT 6.5 K/mm3 (4.0-10.0)
[2016-06-29 05:46] LABS: ALBUMIN 2.7 GM/DL (3.2-5.2); ALKALINE PHOSPHATASE 144 U/L (45-117); ALT/SGPT 25 U/L (12-78); ANION GAP 11 MEQ/L (8-16); AST/SGOT 31 U/L (15-37); BILIRUBIN,TOTAL 0.2 MG/DL (0.2-1.0); BLOOD UREA NITROGEN 14 MG/DL (7-18); CALCIUM LEVEL 7.6 MG/DL (8.5-10.1); CARBON DIOXIDE LEVEL 24 MEQ/L (21-32); CHLORIDE LEVEL 109 MEQ/L (98-107); CREATININE FOR GFR 0.87 MG/DL (0.55-1.02); GLOMERULAR FILTRATION RATE > 60.0 (>58); GLUCOSE, FASTING 170 MG/DL (70-105); POTASSIUM SERUM 3.7 MEQ/L (3.5-5.1); SODIUM LEVEL 144 MEQ/L (136-145); TOTAL PROTEIN 5.7 GM/DL (6.4-8.2)
[2016-06-29] MEDS ORDERED: IRON SUCROSE 100 MG/5 ML INJ (J1756) IV ONE ×2 (07:00)
[2016-06-29] MEDS: PANTOPRAZOLE 40MG TAB (PROTONIX) PO SCH (08:32)
[2016-06-29] MEDS: KETOROLAC 30 MG/ML VIAL (J1885) IV PRN ×3 (08:40→22:32)
[2016-06-29] MEDS ORDERED: ONDANSETRON 4 MG TAB (S0181) PO PRN (12:15)
[2016-06-29] MEDS ORDERED: MORPHINE 4 MG/ML 1ML SYRINGE IV PRN (12:15)
--- NOTE | 2016-06-29 13:41 | ECGEPIP ---
Stationary ECG Study [facility] Test Date: 2016-06-28 Pat Name: NIDA CASTRO Department: Room: [place] [address] Gender: F Manager Database: PHILOMENA : 1970 Requested By: DARIEN OLIVER Order Number: [id number] Reading MD: Rakesh Gaines Measurements Intervals [place] Rate: 92 P: 27 IA: 133 QRS: 9 QRSD: 80 T: 23 QT: 356 QTc: 442 Interpretive Statements Normal sinus rhythm at 92 bpm. Low voltages with small inferior Q waves; body habitus versus pulmonary disease. Rule out prior IWMI. Subtle diffuse ST scooping. Some loss of voltage from 03/09/14. Electronically Signed On 06-29-2016 13:41:14 EDT by Rakesh Gaines
--- NOTE | 2016-06-29 15:43 | IPNPDOC ---
Subjective Date Seen The patient was seen on 06/29/16. Subjective Chief Complaint/HPI The patient is a 45-year-old female admitted with a reason for visit of Syncope. Events since last encounter pt seen and examined, still complaining of migraine headaches Objective Physical Examination General Exam: Positive: No Acute Distress Eye Exam: Positive: Conjunctiva & lids normal, PERRLA Chest Exam: Positive: Clear to auscultation, Normal air movement Heart Exam: Positive: Normal S1, Normal S2, Rate Normal, Regular Rhythm, Negative: Murmurs, Rubs Abdomen Exam: Positive: Normal bowel sounds, Soft, Negative: Hepatospenomegaly, Tenderness Extremity Exam: Positive: Normal pulses, Negative: Clubbing, Cyanosis, Edema Assessment /Plan Problems (1) Anemia Status: Acute Response to Treatment: Improving Problem Text: * iron deficiency may be secondary to malabsorption * s/p blood transfusion * no signs of active bleeding (2) Migraine Status: Acute Problem Text: * pt states she has history of migraines * states the only medicine that helps is morphine * she has received a dose in ED, and one yesterday * will discontinue (3) Narcotic dependence, in remission Status: Chronic (4) Allergic reaction Status: Resolved Plan/VTE VTE Prophylaxis Ordered?: Yes VS, I&O, 24H, [facility] Vital Signs/I&O Vital Signs Date Time Temp Pulse Resp B/P Pulse Ox O2 Delivery O2 Flow Rate FiO2 06/29/16 12:33 17 Room Air 06/29/16 12:00 98.5 63 133/74 97 06/28/16 07:50 1.0 I&O- Last 24 Hours up to 6 AM 06/29/16 06:00 Intake Total 720 ml Output Total 0 ml Balance 720 ml Laboratory Data 24H LABS Laboratory Tests 2 06/29/16 05:08: Blood Urea Nitrogen 14#, Creatinine 0.87, Sodium Level 144, Potassium Level 3.7 , Chloride Level 109H, Carbon Dioxide Level 24, Calcium Level 7.6L, Aspartate Amino Transf (AST/SGOT) 31, Alanine Aminotransferase (ALT/SGPT) 25, Alkaline Phosphatase 144H, Total Bilirubin 0.2#, Total Protein 5.7L, Albumin 2.7L, Albumin/Globulin Ratio 0.90L, Anion Gap 11, White Blood Count 6.5, Red Blood Count 5.29, Hemoglobin 12.0, Hematocrit 39.2, Mean Corpuscular Volume 74.1L, Mean Corpuscular Hemoglobin 22.6L, Mean Corpuscular Hemoglobin Concent 30.6L, Red Cell Distribution Width 17.1H, Platelet Count 306, Neutrophils (%) (Auto) 84.0H, Lymphocytes (%) (Auto) 12.2L, Monocytes (%) (Auto) 2.8, Eosinophils (%) ( Auto) 0.2, Basophils (%) (Auto) 0.2, Neutrophils # (Auto) 5.5, Lymphocytes # ( Auto) 0.8L, Monocytes # (Auto) 0.2, Eosinophils # (Auto) 0.0, Basophils # (Auto ) 0.0, Glomerular Filtration Rate > 60.0, Large Unclassified Cells # 0.0, Large Unclassified Cells % 0.6, Magnesium Level 2.0 CBC/BMP Laboratory Tests 06/28/16 22:25 06/29/16 05:08 Calcium Level 7.6 L, Aspartate Amino Transf (AST/SGOT) 31, Alanine Aminotransferase (ALT/SGPT) 25, Alkaline Phosphatase 144 H, Total Bilirubin 0.2 #, Total Protein 5.7 L, Albumin 2.7 L, Red Blood Count 5.29, Mean Corpuscular Volume 74.1 L, Mean Corpuscular Hemoglobin 22.6 L, Mean Corpuscular Hemoglobin Concent 30.6 L, Red Cell Distribution Width 17.1 H, Neutrophils (%) (Auto) 84.0 H, Lymphocytes (%) (Auto) 12.2 L, Monocytes (%) (Auto) 2.8, Eosinophils (%) ( Auto) 0.2, Basophils (%) (Auto) 0.2, Neutrophils # (Auto) 5.5, Lymphocytes # ( Auto) 0.8 L, Monocytes # (Auto) 0.2, Eosinophils # (Auto) 0.0, Basophils # (Auto ) 0.0 Microbiology Microbiology 06/28/16 MRSA Screen - Final, Complete LENARD CHENG DO Jun 29, 2016 15:43
[2016-06-29] MEDS: diphenhydrAMINE INJ 50MG/ML VIAL (J1200) IV PRN (19:57)
[2016-06-29] MEDS: SODIUM CHLORIDE 0.9% INJ 10 ML SYR IV PRN (22:32)
[2016-06-30] VITALS (7 sets, daily range): BP systolic 117–158; BP diastolic 61–89
[2016-06-30] MEDS: SODIUM CHLORIDE 0.9% INJ 10 ML SYR IV SCH ×3 (05:00→21:03)
[2016-06-30 05:38] LABS: BASO % 0.2 % (0.0-1.0); EOS # 0.1 K/mm3 (0.0-0.50); EOS % 1.1 % (0.0-3.0); LARGE UNSTAINED CELL # 0.1 K/mm3 (0.0-0.4); LARGE UNSTAINED CELL % 1.6 % (0.0-4.0); LYMPH # 1.9 K/mm3 (1.5-4.5); LYMPH % 22.8 % (24.0-44.0); MEAN CORPUSCULAR HEMOGLOBIN 21.9 pg (27.0-33.0); MEAN CORPUSCULAR HGB CONC 29.9 g/dl (32.0-36.5); MEAN CORPUSCULAR VOLUME 73.3 fl (80.0-96.0); MONO # 0.4 K/mm3 (0.0-0.8); MONO % 4.9 % (0.0-5.0); NEUTROPHILS # 5.9 K/mm3 (1.8-7.7); NEUTROPHILS % 69.5 % (36.0-66.0); PLATELET COUNT, AUTOMATED 270 k/mm3 (150-450); RED CELL DISTRIBUTION WIDTH 17.7 % (11.5-14.5); WHITE BLOOD COUNT 8.5 K/mm3 (4.0-10.0)
[2016-06-30 05:39] LABS: ADD MORPHOLOGY? YES
[2016-06-30 05:54] LABS: ALBUMIN 2.6 GM/DL (3.2-5.2); ALBUMIN/GLOBULIN RATIO 0.93 (1.00-1.93); ALKALINE PHOSPHATASE 144 U/L (45-117); ALT/SGPT 27 U/L (12-78); ANION GAP 7 MEQ/L (8-16); AST/SGOT 23 U/L (15-37); BILIRUBIN,TOTAL 0.2 MG/DL (0.2-1.0); BLOOD UREA NITROGEN 15 MG/DL (7-18); CALCIUM LEVEL 7.7 MG/DL (8.5-10.1); CARBON DIOXIDE LEVEL 27 MEQ/L (21-32); CHLORIDE LEVEL 111 MEQ/L (98-107); CREATININE FOR GFR 0.73 MG/DL (0.55-1.02); GLOMERULAR FILTRATION RATE > 60.0 (>58); GLUCOSE, FASTING 98 MG/DL (70-105); POTASSIUM SERUM 3.8 MEQ/L (3.5-5.1); SODIUM LEVEL 145 MEQ/L (136-145); TOTAL PROTEIN 5.4 GM/DL (6.4-8.2)
[2016-06-30 06:23] LABS: MICROCYTOSIS 2+
[2016-06-30 06:24] LABS: ANISOCYTOSIS 1+; HYPOCHROMASIA 2+; OVALOCYTES 1+
[2016-06-30] MEDS: PANTOPRAZOLE 40MG TAB (PROTONIX) PO SCH (08:44)
[2016-06-30] MEDS: FERROUS GLUCONATE 324 MG TAB PO SCH (09:53)
[2016-06-30] MEDS: KETOROLAC 30 MG/ML VIAL (J1885) IV PRN ×2 (11:11→17:24)
--- NOTE | 2016-06-30 13:17 | IPNPDOC ---
Subjective Date Seen The patient was seen on 06/30/16. Subjective Chief Complaint/HPI The patient is a 45-year-old female admitted with a reason for visit of Syncope. Events since last encounter pt seen and examined, complaining of leg cramps since yesterday, she had a bowel movement this morning she denies any tarry stool or black stool, no obvious bleeding. Objective Physical Examination General Exam: Positive: No Acute Distress Eye Exam: Positive: Conjunctiva & lids normal, PERRLA Chest Exam: Positive: Clear to auscultation, Normal air movement Heart Exam: Positive: Normal S1, Normal S2, Rate Normal, Regular Rhythm, Negative: Murmurs, Rubs Abdomen Exam: Positive: Normal bowel sounds, Soft, Negative: Hepatospenomegaly, Tenderness Extremity Exam: Positive: Normal pulses, Negative: Clubbing, Cyanosis, Edema Assessment /Plan Problems (1) Anemia Status: Acute Response to Treatment: Improving Problem Text: * iron deficiency may be secondary to malabsorption, continue iron po * s/p blood transfusion * no signs of active bleeding * occult blood is positive, pt had a recent colonoscope that was negative * will contact gastroenterology tomorrow for further recommendation * continue to trend Hg and Hct, (2) Migraine Status: Resolved Problem Text: * pt states she has history of migraines (3) Narcotic dependence, in remission Status: Chronic (4) Allergic reaction Status: Resolved Plan/VTE VTE Prophylaxis Ordered?: Yes VS, I&O, [facility]H, [facility] Vital Signs/I&O Vital Signs Date Time Temp Pulse Resp B/P Pulse Ox O2 Delivery O2 Flow Rate FiO2 06/30/16 11:55 98.3 90 18 141/71 96 Room Air 06/28/16 07:50 1.0 I&O- Last 24 Hours up to 6 AM 06/30/16 06:00 Intake Total 1320 ml Output Total 0 ml Balance 1320 ml Laboratory Data 24H LABS Laboratory Tests 2 06/30/16 05:01: Blood Urea Nitrogen 15, Creatinine 0.73, Sodium Level 145, Potassium Level 3.8, Chloride Level 111H, Carbon Dioxide Level 27, Calcium Level 7.7L, Aspartate Amino Transf (AST/SGOT) 23, Alanine Aminotransferase (ALT/SGPT) 27, Alkaline Phosphatase 144H, Total Bilirubin 0.2, Total Protein 5.4L, Albumin 2.6L, Albumin /Globulin Ratio 0.93L, Anion Gap 7L, Anisocytosis 1+, White Blood Count 8.5, Red Blood Count 4.27, Hemoglobin 9.4#L, Hematocrit 31.3L, Mean Corpuscular Volume 73.3L, Mean Corpuscular Hemoglobin 21.9L, Mean Corpuscular Hemoglobin Concent 29.9L, Red Cell Distribution Width 17.7H, Platelet Count 270, Neutrophils (%) (Auto) 69.5H, Lymphocytes (%) (Auto) 22.8L, Monocytes (%) (Auto ) 4.9, Eosinophils (%) (Auto) 1.1, Basophils (%) (Auto) 0.2, Neutrophils # (Auto ) 5.9, Lymphocytes # (Auto) 1.9, Monocytes # (Auto) 0.4, Eosinophils # (Auto) 0.1, Basophils # (Auto) 0.0, Glomerular Filtration Rate > 60.0, Hypochromasia 2+ , Large Unclassified Cells # 0.1, Large Unclassified Cells % 1.6, Magnesium Level 2.0, Microcytosis 2+, Ovalocytes 1+, Platelet Estimate NORMAL CBC/BMP Laboratory Tests 06/30/16 05:01 Calcium Level 7.7 L, Aspartate Amino Transf (AST/SGOT) 23, Alanine Aminotransferase (ALT/SGPT) 27, Alkaline Phosphatase 144 H, Total Bilirubin 0.2 , Total Protein 5.4 L, Albumin 2.6 L, Red Blood Count 4.27, Mean Corpuscular Volume 73.3 L, Mean Corpuscular Hemoglobin 21.9 L, Mean Corpuscular Hemoglobin Concent 29.9 L, Red Cell Distribution Width 17.7 H, Neutrophils (%) (Auto) 69.5 H, Lymphocytes (%) (Auto) 22.8 L, Monocytes (%) (Auto) 4.9, Eosinophils (%) ( Auto) 1.1, Basophils (%) (Auto) 0.2, Neutrophils # (Auto) 5.9, Lymphocytes # ( Auto) 1.9, Monocytes # (Auto) 0.4, Eosinophils # (Auto) 0.1, Basophils # (Auto) 0.0 06/30/16 11:58 Microbiology Microbiology 06/30/16 Stool Occult Blood (ESTELA) - Final, Complete 3/17/17 MRSA Screen - Final, Complete LENARD CHENG DO Jun 30, 2016 13:17
[2016-06-30] MEDS ORDERED: MORPHINE 2 MG/ML 1ML SYRINGE As Ordered ONE (18:01)
[2016-06-30] MEDS ORDERED: MORPHINE 2 MG/ML 1ML SYRINGE IV ONE (18:15)
--- NOTE | 2016-06-30 18:50 | REPUSA ---
CLINICAL HISTORY: Abdominal pain. TECHNIQUE: Multiple axial, sagittal and coronal CT images were obtained through the abdomen and pelvi s without administration of oral or IV contrast material. COMMENTS: The liver is of uniform attenuation without mass or defect. There is no intra or extrahepatic biliary ductal dilatation. The spleen is normal. The gallbladder is surgically absent. The pancreas is of n ormal contour and attenuation characteristics. There is no evidence of adrenal mass. The kidneys are normal in size, shape and configuration. No renal or ureteral calculi are identified. There is no hydroureter or hydronephrosis. Postsurgical changes are present in the left upper quadrant in the stomach. There is no evidence for appendicitis. There is no bowel wall thickening. No evidence for small or la rge bowel obstruction. There is no evidence of abdominal ascites or lymphadenopathy. There is no evidence of intrinsic or extrinsic bladder mass. There is no pelvic ascites or lymphadeno landen. Status post complete hysterectomy. Images of the lung bases show no evidence of pleural or parenchymal mass. There are no pleural effusi ons. The bony structures are free of lytic or blastic lesions. Multilevel degenerative changes are seen in volving the thoracolumbar spine. Status post posterior lumbar fusion. Scattered calcifications are seen involving the aorta and major branches compatible with atherosclero sis. IMPRESSION: No acute abdominal or pelvic pathology. Thank you for your kind referral of this patient.
[2016-06-30] MEDS: LR 1,000 ML IV SCH (18:59)
[2016-06-30 19:14] LABS: BASO % 0.3 % (0.0-1.0); EOS # 0.2 K/mm3 (0.0-0.50); EOS % 1.7 % (0.0-3.0); LARGE UNSTAINED CELL # 0.1 K/mm3 (0.0-0.4); LARGE UNSTAINED CELL % 1.4 % (0.0-4.0); LYMPH # 1.9 K/mm3 (1.5-4.5); LYMPH % 20.7 % (24.0-44.0); MEAN CORPUSCULAR HGB CONC 29.9 g/dl (32.0-36.5); MEAN CORPUSCULAR VOLUME 73.6 fl (80.0-96.0); MONO # 0.5 K/mm3 (0.0-0.8); MONO % 5.9 % (0.0-5.0); NEUTROPHILS # 6.1 K/mm3 (1.8-7.7); NEUTROPHILS % 69.9 % (36.0-66.0); PLATELET COUNT, AUTOMATED 275 k/mm3 (150-450); RED CELL DISTRIBUTION WIDTH 17.6 % (11.5-14.5); WHITE BLOOD COUNT 8.7 K/mm3 (4.0-10.0)
[2016-06-30 19:15] LABS: ADD MORPHOLOGY? YES
[2016-06-30 19:27] LABS: ALBUMIN 2.8 GM/DL (3.2-5.2); ALKALINE PHOSPHATASE 172 U/L (45-117); ALT/SGPT 30 U/L (12-78); AMYLASE 14 U/L (25-115); ANION GAP 8 MEQ/L (8-16); AST/SGOT 23 U/L (15-37); BILIRUBIN,TOTAL 0.2 MG/DL (0.2-1.0); BLOOD UREA NITROGEN 16 MG/DL (7-18); CALCIUM LEVEL 7.7 MG/DL (8.5-10.1); CARBON DIOXIDE LEVEL 25 MEQ/L (21-32); CHLORIDE LEVEL 113 MEQ/L (98-107); CREATININE FOR GFR 0.81 MG/DL (0.55-1.02); GLOMERULAR FILTRATION RATE > 60.0 (>58); GLUCOSE, FASTING 98 MG/DL (70-105); MAGNESIUM LEVEL 1.9 MG/DL (1.8-2.4); POTASSIUM SERUM 3.8 MEQ/L (3.5-5.1); SODIUM LEVEL 146 MEQ/L (136-145); TOTAL PROTEIN 5.6 GM/DL (6.4-8.2)
[2016-06-30] MEDS: MORPHINE 2 MG/ML 1ML SYRINGE IV PRN (20:09)
[2016-06-30 20:38] LABS: ANISOCYTOSIS 1+; HYPOCHROMASIA 2+; MICROCYTOSIS 2+; OVALOCYTES 2+; POIKILOCYTOSIS 1+
[2016-06-30 20:39] LABS: ACANTHOCYTES 1+; TARGET CELLS 1+
[2016-06-30 20:40] LABS: POLYCHROMASIA 1+
[2016-06-30] MEDS: diphenhydrAMINE INJ 50MG/ML VIAL (J1200) IV PRN (21:03)
[2016-07-01] VITALS (9 sets, daily range): BP systolic 126–139; BP diastolic 56–83
[2016-07-01] MEDS: MORPHINE 2 MG/ML 1ML SYRINGE IV PRN ×3 (00:06→07:07)
[2016-07-01] MEDS: LR 1,000 ML IV SCH ×2 (04:07→13:44)
[2016-07-01] MEDS: SODIUM CHLORIDE 0.9% INJ 10 ML SYR IV SCH ×3 (05:09→20:04)
[2016-07-01 05:26] LABS: BASO % 0.3 % (0.0-1.0); EOS # 0.2 K/mm3 (0.0-0.50); EOS % 3.1 % (0.0-3.0); LARGE UNSTAINED CELL # 0.1 K/mm3 (0.0-0.4); LARGE UNSTAINED CELL % 1.5 % (0.0-4.0); LYMPH # 1.8 K/mm3 (1.5-4.5); LYMPH % 30.1 % (24.0-44.0); MEAN CORPUSCULAR HEMOGLOBIN 22.4 pg (27.0-33.0); MEAN CORPUSCULAR HGB CONC 30.8 g/dl (32.0-36.5); MEAN CORPUSCULAR VOLUME 72.9 fl (80.0-96.0); MONO # 0.4 K/mm3 (0.0-0.8); MONO % 6.4 % (0.0-5.0); NEUTROPHILS # 3.5 K/mm3 (1.8-7.7); NEUTROPHILS % 58.6 % (36.0-66.0); PLATELET COUNT, AUTOMATED 268 k/mm3 (150-450); RED CELL DISTRIBUTION WIDTH 17.9 % (11.5-14.5); WHITE BLOOD COUNT 5.9 K/mm3 (4.0-10.0)
[2016-07-01 05:48] LABS: ALBUMIN 2.6 GM/DL (3.2-5.2); ALBUMIN/GLOBULIN RATIO 0.96 (1.00-1.93); ALKALINE PHOSPHATASE 134 U/L (45-117); ALT/SGPT 23 U/L (12-78); ANION GAP 6 MEQ/L (8-16); AST/SGOT 18 U/L (15-37); BILIRUBIN,TOTAL 0.2 MG/DL (0.2-1.0); BLOOD UREA NITROGEN 12 MG/DL (7-18); CALCIUM LEVEL 7.4 MG/DL (8.5-10.1); CARBON DIOXIDE LEVEL 30 MEQ/L (21-32); CHLORIDE LEVEL 109 MEQ/L (98-107); GLOMERULAR FILTRATION RATE > 60.0 (>58); GLUCOSE, FASTING 73 MG/DL (70-105); MAGNESIUM LEVEL 1.8 MG/DL (1.8-2.4); POTASSIUM SERUM 3.7 MEQ/L (3.5-5.1); SODIUM LEVEL 145 MEQ/L (136-145); TOTAL PROTEIN 5.3 GM/DL (6.4-8.2)
[2016-07-01] MEDS ORDERED: VANCOMYCIN HCL 1,000 MG, VIAL MATE ADAPTER 1 EACH in D5W 250 ML IV SCH (06:00)
--- NOTE | 2016-07-01 07:21 | REP ---
KUB: Single view. HISTORY: Sudden abdominal pain. Comparison study August 21, 2010. FINDINGS: There are clips and sutures in the upper abdomen bilaterally. The patient is status post L4 through S1 fusion in the lumbar spine bilaterally. There is air and stool in a nondistended colon proximally and distally. No mass or organomegaly seen. IMPRESSION: Postoperative changes. No acute abnormality. Signed by James Dempsey MD 07/01/2016 11:41 A
--- NOTE | 2016-07-01 08:36 | CR ---
DATE OF CONSULTATION: 06/30/2016 The patient was seen at the request of the hospital service, Dr. Islas for consideration of placement of an Infusaport. HISTORY OF PRESENT ILLNESS: The patient is in a 45-year-old white female who is status post gastric bypass in 2007 with a Roberta-en-Y. She then underwent hiatal hernia repair in 2014,which was fraught with complications including an entry into the large bowel with multiple infections and need to eventually remove the mesh. She has been treated in [place] for an open abdominal wound for the past 6 months and it has finally closed. She becomes very anemic periodically and in need of blood transfusions. She has been told that she should be taking iron because of her gastric bypass. She has now run out of vascular access and was transferred here from [place] because vascular access could not be found and had a right internal jugular line placed by the emergency room. I have now been asked to place an Infusaport. When she becomes anemic, she becomes very fatigued and very tired such that she can hardly get out of bed. She also becomes very short of breath. She does not have any chest pain. She is able to take oral intact without dysphagia. She has had no fevers, chills, or sweats. When she does become anemic, not only does she become shortness of breath and fatigues but she has severe peripheral cramping in her legs, abdomen and arms. This is not brought on by exercise. PAST MEDICAL ILLNESSES: Migraine headaches. PAST SURGICAL HISTORY: Status post hysterectomy for uterine carcinoma. Upper and lower back surgery. Repair of a hiatal hernia with subsequent removal of mesh secondary to abdominal sepsis. HOME MEDICATIONS: None. ALLERGIES: ASPIRIN -throat swelling. CONTRAST MEDIA - hives. PENICILLIN - throat swelling. PROPOXYPHENE - throat swelling. SOMATROPIN - generalized swelling. LORAZEPAM - hives. MOXIFLOXACIN, CARISERDOL - hives, LISINOPRIL - hives. NABUMETONE - hives. PREGABALIN - hives. TOPIRAMATE - hives. TRAMADOL - nausea and PHENOBARBITAL. TRAVEL HISTORY: She has traveled to [place] but not travel history to the [facility] or foreign travel. EXPOSURE: She has two dogs, a montez doodle and a toy poodle. No birds or cats. No tuberculosis exposure. 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 When doing so, all of her tuberculosis tests were negative. HABITS: Does not smoke. Does not drink and has never smoked. FAMILY HISTORY: Father of a stroke when she was 17. Her mother of COPD and cancer. The cancer is unknown. REVIEW OF SYSTEMS: Constitutional: Without fever, chills, sweats, or night sweats. Eyes: Without diplopia, without amaurosis fugax, without prior jaundice. Mouth: She has her own teeth. Cardiovascular: Without prior myocardial infarctions. Without anginal-type chest pain intermittent claudication. Without peripheral edema. Respiratory: See history of present illness. GI: Status post gastric bypass. Does have occasional diarrhea. : Without dysuria or hematuria. Prior renal stones. Neurological: Without paresthesias, paralysis or prior seizures. Hematologic: With recurrent anemias needing blood transfusions. Lymphatics: Without lump or bumps in the neck, axilla or groin. Psychiatric: Without pathological anxiety, depressions or psychoses. PHYSICAL EXAMINATION: GENERAL: Well-developed, well-nourished chronically-ill, white female in no acute distress. VITAL SIGNS: Temperature is 98.2, heart rate is 76 and in sinus rhythm, respiratory rate of 18 without the use of accessory muscles. She is 97% saturated on room air and her blood pressure is 124/70. HEENT: Eyes: Pupils equal, round and reactive to light. Extraocular muscles intact. Sclerae nonicteric. Nose without deformity. Mouth shows her mucous membranes to be pink and moist. Lips and commissures are without lesions. There is no thrush. Head is normocephalic. NECK: Supple. There is no jugular venous distention. No subcutaneous emphysema. Trachea is midline. There is no thyromegaly, no lymphadenopathy and she has 2+ carotid upstrokes. There is a right internal jugular central line placed. LUNGS: Show normal vesicular sounds on either side. Breath sounds are equal. There is no wheezes, rhonchi or rales. CARDIAC: Cardiac exam is without murmurs, clicks, gallops or rubs. I cannot feel her point of maximum impulse (PMI). S1 and S2 are normal. ABDOMEN: Abdomen is soft and nontender. Bowel sounds are positive. There is no hepatomegaly. No CVA tenderness. EXTREMITIES: Extremities show no pretibial edema. No calf tenderness. No differential swelling of the upper extremities. SKIN: Skin is warm, dry and perfused without cyanosis. NEURO: Shows II-XII intact along with gross motor and gross sensation intact. Gait is not tested. PSYCH: Psychiatric shows her to be awake, alert and oriented times three with appropriate and affect and conversational. INVESTIGATIONS: On admission her hemoglobin and hematocrit were 7.5 and 26.4 with a white count of 4.8. After transfusion of two units, her hemoglobin and hematocrit are 9.4 and 31.3. Platelet count is 270 with a differential that shows 69% neutrophils, 22% lymphocytes, 4% monocytes. There are no immature forms and no toxic granulations. Her absolute reticulocyte count is 55. Her chemistries show normal electrolytes with a BUN and creatinine of 15 and 0.73. Of note, her iron is 11 and severely depressed with an lower limit of normal 50. Her total iron binding capacity is high at 500. Her transferrin percent saturation is only 2.2%. Ferritin is 2. This looks like it could be severe iron deficiency anemia. Vitamin B12 level is normal at 382 and her folate level is normal at 7.5. The total direct bilirubin are 0.2 less than 0.1 respectively. Her MCV is 69 with an MCH of 19 and an MCHC of 28, all very low. Her chest x-ray does not show a cervical rib. Lungs are fully expanded to the chest wall. The costophrenic angles are sharp and there are no infiltrates. The right internal jugular line is in good place and there is no pneumothorax. IMPRESSION: 1. Severe iron deficiency anemia. 2. Status post gastric bypass. 3. Migraine headaches. 4. Lack of vascular access. PLAN AND DISCUSSION: She was told when she first had her gastric bypass surgery that she should not take iron. That is completely erroneous and, in fact, iron deficiency anemia is a real problem after gastric bypass surgery. She does need a bit of acidity in the stomach to absorb iron, but there is no contraindication to taking iron. A transfusion of iron has already been undertaken and she had a reaction to it. I have therefore, placed her on iron supplementation to be taken with orange juice. She said she has a life-threatening problem of iron deficiency anemia for which she has needed multiple transfusions. To withhold iron is not at all indicated. There is no indication of blood loss. She has had her uterus removed and she is not menstruating. I do not see a stool for heme and I will order that. She does not complain of melena, however. I will schedule her for an Infusaport for vascular access as she has none. She understands the complications of a port including acute pneumothorax and possible infection. Once her iron deficiency is under control and she remains stable, we can certainly remove the port at a later time.
[2016-07-01] MEDS: PANTOPRAZOLE 40MG TAB (PROTONIX) PO SCH (09:30)
[2016-07-01] MEDS: FERROUS GLUCONATE 324 MG TAB PO SCH (09:30)
[2016-07-01] MEDS: KETOROLAC 30 MG/ML VIAL (J1885) IV PRN (11:13)
[2016-07-01] MEDS ORDERED: MOM 30ML SUSPENSION UDC PO ONE (12:45)
[2016-07-01] MEDS ORDERED: LIDOCAINE 1% MDV 20ML VIAL As Ordered ONE (14:02)
[2016-07-01] MEDS ORDERED: HEPARIN SOD (PORCINE) 5000 UNITS/ML VIAL As Ordered ONE (14:03)
[2016-07-01] MEDS ORDERED: BUPIVACAINE LIPOSOME/PF 1.3% 20 ML VIAL (13.3MG/ML)(EXPAREL) As Ordered ONE (14:03)
[2016-07-01] MEDS ORDERED: MUPIROCIN 2% OINT 22 GM TUBE As Ordered ONE (14:34)
[2016-07-01] MEDS ORDERED: ACETAMINOPHEN 325 MG TAB PO PRN (14:45)
[2016-07-01] MEDS ORDERED: PROPOFOL 200 MG/20 ML VIAL As Ordered ONE (14:48)
[2016-07-01] MEDS ORDERED: MIDAZOLAM INJ 2 MG/2 ML VIAL (J2250) As Ordered ONE (14:48)
[2016-07-01] MEDS ORDERED: fentaNYL 100 MCG/2 ML INJECTION (J3010) As Ordered ONE ×2 (14:48→15:50)
[2016-07-01] MEDS ORDERED: PHENYLephrine HCL 500 MCG/5 ML (100MCG/ML) SYRINGE (J2370) As Ordered ONE (15:00)
[2016-07-01] MEDS: fentaNYL 100 MCG/2 ML INJECTION (J3010) IV PRN ×5 (15:53→16:48)
[2016-07-01] MEDS ORDERED: PERCOCET 5MG/325MG TAB PO PRN (16:00)
[2016-07-01] MEDS ORDERED: LR 1,000 ML IV SCH (16:00)
[2016-07-01] MEDS ORDERED: ONDANSETRON 4MG/2ML VIAL (J2405) IV PRN (16:00)
--- NOTE | 2016-07-01 16:00 | IPNPDOC ---
Subjective Date Seen The patient was seen on 07/01/16. Subjective Chief Complaint/HPI The patient is a 45-year-old female admitted with a reason for visit of Syncope. Events since last encounter pt seen and examined, Skin: Denies: Breakdown, Lesions, Rash Pulmonary: Denies: Cough, Dyspnea Objective Physical Examination General Exam: Positive: No Acute Distress Eye Exam: Positive: Conjunctiva & lids normal, PERRLA Chest Exam: Positive: Clear to auscultation, Normal air movement Heart Exam: Positive: Normal S1, Normal S2, Rate Normal, Regular Rhythm, Negative: Murmurs, Rubs Abdomen Exam: Positive: Normal bowel sounds, Soft, Negative: Hepatospenomegaly, Tenderness Extremity Exam: Positive: Normal pulses, Negative: Clubbing, Cyanosis, Edema Assessment /Plan Problems (1) Anemia Status: Acute Response to Treatment: Improving Problem Text: * iron deficiency may be secondary to malabsorption, continue iron po * s/p blood transfusion * no signs of active bleeding * occult blood is positive, pt had a recent colonoscope that was negative * Reindl will see pt (2) Migraine Status: Resolved Problem Text: * pt states she has history of migraines (3) Narcotic dependence, in remission Status: Chronic (4) Allergic reaction Status: Resolved Plan/VTE VTE Prophylaxis Ordered?: Yes Plan/Urinary Catheter Reason for insertion/continuin: Acute obstruct/retention VS, I&O, 24H, [facility] Vital Signs/I&O Vital Signs Date Time Temp Pulse Resp B/P Pulse Ox O2 Delivery O2 Flow Rate FiO2 07/01/16 15:35 96.5 79 18 126/72 98 Room Air 06/28/16 07:50 1.0 I&O- Last 24 Hours up to 6 AM 07/01/16 06:00 Intake Total 2360 ml Output Total 850 ml Balance 1510 ml Laboratory Data 24H LABS Laboratory Tests 2 06/30/16 18:52: Acanthocytes 1+, Blood Urea Nitrogen 16, Creatinine 0.81, Sodium Level 146H, Potassium Level 3.8, Chloride Level 113H, Carbon Dioxide Level 25, Calcium Level 7.7L, Aspartate Amino Transf (AST/SGOT) 23, Alanine Aminotransferase (ALT/ SGPT) 30, Total Creatine Kinase 26, Alkaline Phosphatase 172H, Total Bilirubin 0.2, Total Protein 5.6L, Albumin 2.8L, Albumin/Globulin Ratio 1.00, Amylase Level 14L, Anion Gap 8, Anisocytosis 1+, White Blood Count 8.7, Red Blood Count 4.33, Hemoglobin 9.5L, Hematocrit 31.8L, Mean Corpuscular Volume 73.6L, Mean Corpuscular Hemoglobin 22.0L, Mean Corpuscular Hemoglobin Concent 29.9L, Red Cell Distribution Width 17.6H, Platelet Count 275, Neutrophils (%) (Auto) 69.9H , Lymphocytes (%) (Auto) 20.7L, Monocytes (%) (Auto) 5.9H, Eosinophils (%) (Auto ) 1.7, Basophils (%) (Auto) 0.3, Neutrophils # (Auto) 6.1, Lymphocytes # (Auto) 1.9, Monocytes # (Auto) 0.5, Eosinophils # (Auto) 0.2, Basophils # (Auto) 0.0, C -Reactive Protein, Quantitative < 0.30, Creatine Kinase MB 1.9, Creatine Kinase MB Relative Index 7.30H, Glomerular Filtration Rate > 60.0, Hypochromasia 2+, Lactic Acid (Sepsis) 0.9, Large Unclassified Cells # 0.1, Large Unclassified Cells % 1.4, Lipase 77, Magnesium Level 1.9, Microcytosis 2+, Ovalocytes 2+, Platelet Estimate NORMAL, Poikilocytosis 1+, Polychromasia 1+, Target Cells 1+, Troponin I < 0.02 07/01/16 05:10: Blood Urea Nitrogen 12, Creatinine 0.60, Sodium Level 145, Potassium Level 3.7, Chloride Level 109H, Carbon Dioxide Level 30, Calcium Level 7.4L, Aspartate Amino Transf (AST/SGOT) 18, Alanine Aminotransferase (ALT/SGPT) 23, Alkaline Phosphatase 134H, Total Bilirubin 0.2, Total Protein 5.3L, Albumin 2.6L, Albumin /Globulin Ratio 0.96L, Anion Gap 6L, White Blood Count 5.9, Red Blood Count 4.13 , Hemoglobin 9.3L, Hematocrit 30.1L, Mean Corpuscular Volume 72.9L, Mean Corpuscular Hemoglobin 22.4L, Mean Corpuscular Hemoglobin Concent 30.8L, Red Cell Distribution Width 17.9H, Platelet Count 268, Neutrophils (%) (Auto) 58.6, Lymphocytes (%) (Auto) 30.1, Monocytes (%) (Auto) 6.4H, Eosinophils (%) (Auto) 3.1H, Basophils (%) (Auto) 0.3, Neutrophils # (Auto) 3.5, Lymphocytes # (Auto) 1.8, Monocytes # (Auto) 0.4, Eosinophils # (Auto) 0.2, Basophils # (Auto) 0.0, Glomerular Filtration Rate > 60.0, Large Unclassified Cells # 0.1, Large Unclassified Cells % 1.5, Magnesium Level 1.8 CBC/BMP Laboratory Tests 06/30/16 18:52 Calcium Level 7.7 L, Aspartate Amino Transf (AST/SGOT) 23, Alanine Aminotransferase (ALT/SGPT) 30, Total Creatine Kinase 26, Alkaline Phosphatase 172 H, Total Bilirubin 0.2, Total Protein 5.6 L, Albumin 2.8 L, Red Blood Count 4.33, Mean Corpuscular Volume 73.6 L, Mean Corpuscular Hemoglobin 22.0 L, Mean Corpuscular Hemoglobin Concent 29.9 L, Red Cell Distribution Width 17.6 H, Neutrophils (%) (Auto) 69.9 H, Lymphocytes (%) (Auto) 20.7 L, Monocytes (%) ( Auto) 5.9 H, Eosinophils (%) (Auto) 1.7, Basophils (%) (Auto) 0.3, Neutrophils # (Auto) 6.1, Lymphocytes # (Auto) 1.9, Monocytes # (Auto) 0.5, Eosinophils # ( Auto) 0.2, Basophils # (Auto) 0.0 07/01/16 05:10 Calcium Level 7.4 L, Aspartate Amino Transf (AST/SGOT) 18, Alanine Aminotransferase (ALT/SGPT) 23, Alkaline Phosphatase 134 H, Total Bilirubin 0.2 , Total Protein 5.3 L, Albumin 2.6 L, Red Blood Count 4.13, Mean Corpuscular Volume 72.9 L, Mean Corpuscular Hemoglobin 22.4 L, Mean Corpuscular Hemoglobin Concent 30.8 L, Red Cell Distribution Width 17.9 H, Neutrophils (%) (Auto) 58.6 , Lymphocytes (%) (Auto) 30.1, Monocytes (%) (Auto) 6.4 H, Eosinophils (%) (Auto ) 3.1 H, Basophils (%) (Auto) 0.3, Neutrophils # (Auto) 3.5, Lymphocytes # (Auto ) 1.8, Monocytes # (Auto) 0.4, Eosinophils # (Auto) 0.2, Basophils # (Auto) 0.0 Microbiology Microbiology 07/01/16 Stool Occult Blood (ESTELA) - Final, Complete 06/30/16 Stool Occult Blood (ESTELA) - Final, Complete 06/28/16 MRSA Screen - Final, Complete LENARD CHENG DO Jul 01, 2016 16:00
--- NOTE | 2016-07-01 16:14 | REP ---
PORTABLE CHEST: AP portable view of the chest is performed and compared to prior study of 06/28/2016. Left subclavian Mediport catheter is seen with the tip in the superior vena cava. There is no pneumothorax. Right jugular line is again noted with tip in the right atrium. There is no new infiltrate cardiomediastinal silhouette is unchanged. Metallic plate and screws are seen in the cervical spine. IMPRESSION: Placement of left subclavian Mediport catheter with the tip in the superior vena cava. No pneumothorax. Signed by Beni Cook MD 07/01/2016 04:16 P
[2016-07-01] MEDS ORDERED: GOLYTELY SOLN 4000 ML BTL PO ONE (17:00)
[2016-07-01] MEDS: NS 1,000 ML IV SCH (18:00)
[2016-07-01] MEDS: ACETAMINOPHEN 500 MG TAB PO PRN (18:29)
[2016-07-01] MEDS: diphenhydrAMINE INJ 50MG/ML VIAL (J1200) IV PRN (20:04)
--- NOTE | 2016-07-01 23:30 | RO ---
DATE OF PROCEDURE: 07/01/2016 PREOPERATIVE DIAGNOSIS: Severe anemia and need for vascular access. POSTPROCEDURE DIAGNOSIS: Severe anemia and need for vascular access. PROCEDURE: Insertion of left subclavian [id number]. SURGEON: Dr. Levi Beltran ELECTRICAL ASSEMBLER: ANESTHESIA: FINDINGS: All contours were smooth at the end of the procedure and a catheter was placed at the junction of the SVC and the RA. DESCRIPTION OF PROCEDURE: Under satisfactory MAC anesthesia, the patient was prepped and draped in the usual sterile fashion. Infraclavicular fossa was infiltrated with 1% Xylocaine and the subclavian vein was found on the first pass. A wire was placed for the production of PVCs. An incision approximately 2 cm beneath the clavicle was then made. It was carried down through the subcutaneous tissue and a subcutaneous pocket was created by use of both sharp and blunt dissection. The entry site was incised and a peel-away introducer placed. Catheter was placed low numbers down into the right atrium. The peel-away catheter was removed and a tunnel was created between the entry site and the port site. Catheter was then positioned under fluoroscopic control at the junction of the SVC and the right atrium. Catheter was cut to an appropriate length, collar was placed and connected to the Mgctuk-B-Osnl. Osawpt-L-Rgdp was flushed with heparinized saline and aspirated and flushed well. It was then later flushed with a final flush of heparin 100 units per mL. The port was secured to the chest wall with two #2-0 silk sutures. Subcutaneous tissue was then closed with a running #3-0 Vicryl suture and the skin was closed with running #4-0 Monocryl subcuticular suture. Prior to closing the wound, x-ray was obtained and showed all contrast to be smooth and the catheter position in correct place. The patient tolerated the procedure well and left the operating room in satisfactory condition for the recovery room.
[2016-07-02] VITALS (11 sets, daily range): BP systolic 123–156; BP diastolic 52–95
[2016-07-02 00:09] LABS: ENDOMYSIAL ABY IgA Negative (Negative); TISSUE TRANSGLUTAMINASE IgG <2 U/mL (0-5)
[2016-07-02] MEDS: ACETAMINOPHEN 500 MG TAB PO PRN ×3 (02:53→23:43)
[2016-07-02] MEDS: SODIUM CHLORIDE 0.9% INJ 10 ML SYR IV SCH ×3 (05:31→20:37)
[2016-07-02] MEDS ORDERED: GOLYTELY SOLN 4000 ML BTL PO ONE (06:00)
[2016-07-02 06:01] LABS: BASO % 0.5 % (0.0-1.0); EOS # 0.2 K/mm3 (0.0-0.50); EOS % 3.3 % (0.0-3.0); LARGE UNSTAINED CELL # 0.1 K/mm3 (0.0-0.4); LARGE UNSTAINED CELL % 1.8 % (0.0-4.0); LYMPH # 0.9 K/mm3 (1.5-4.5); LYMPH % 18.2 % (24.0-44.0); MEAN CORPUSCULAR HEMOGLOBIN 21.6 pg (27.0-33.0); MEAN CORPUSCULAR HGB CONC 29.1 g/dl (32.0-36.5); MEAN CORPUSCULAR VOLUME 74.3 fl (80.0-96.0); MONO # 0.4 K/mm3 (0.0-0.8); MONO % 7.8 % (0.0-5.0); NEUTROPHILS # 3.4 K/mm3 (1.8-7.7); NEUTROPHILS % 68.4 % (36.0-66.0); PLATELET COUNT, AUTOMATED 289 k/mm3 (150-450); RED CELL DISTRIBUTION WIDTH 18.1 % (11.5-14.5); WHITE BLOOD COUNT 4.9 K/mm3 (4.0-10.0)
[2016-07-02 06:05] LABS: ADD MORPHOLOGY? YES
[2016-07-02 06:20] LABS: ALBUMIN 2.7 GM/DL (3.2-5.2); ALKALINE PHOSPHATASE 136 U/L (45-117); ALT/SGPT 25 U/L (12-78); ANION GAP 6 MEQ/L (8-16); AST/SGOT 23 U/L (15-37); BILIRUBIN,TOTAL 0.3 MG/DL (0.2-1.0); BLOOD UREA NITROGEN 7 MG/DL (7-18); CALCIUM LEVEL 7.6 MG/DL (8.5-10.1); CARBON DIOXIDE LEVEL 32 MEQ/L (21-32); CHLORIDE LEVEL 104 MEQ/L (98-107); CREATININE FOR GFR 0.58 MG/DL (0.55-1.02); GLOMERULAR FILTRATION RATE > 60.0 (>58); GLUCOSE, FASTING 95 MG/DL (70-105); POTASSIUM SERUM 3.9 MEQ/L (3.5-5.1); SODIUM LEVEL 142 MEQ/L (136-145); TOTAL PROTEIN 5.4 GM/DL (6.4-8.2)
[2016-07-02 06:29] LABS: ANISOCYTOSIS 2+; HYPOCHROMASIA 3+; MICROCYTOSIS 2+
[2016-07-02] MEDS: NS 1,000 ML IV SCH (08:02)
[2016-07-02] MEDS: PANTOPRAZOLE 40MG TAB (PROTONIX) PO SCH (08:06)
--- NOTE | 2016-07-02 09:32 | REP ---
Partial chest x-ray: Single view. History: Viaytt-H-Wnka insertion. 40 seconds of fluoroscopy time is reported. Findings: A single fluoroscopically obtained last image hold spot radiograph of the left chest documents Mvaquc-[id number] catheter placement. Signed by James Dempsey MD 07/02/2016 03:01 P
[2016-07-02] MEDS ORDERED: diphenhydrAMINE INJ 50MG/ML VIAL (J1200) IV ONE ×2 (10:30→17:00)
--- NOTE | 2016-07-02 10:52 | IPNPDOC ---
Subjective Date Seen The patient was seen on 07/02/16. Subjective Chief Complaint/HPI The patient is a 45-year-old female admitted with a reason for visit of Syncope. Events since last encounter Developed severe pounding headache this morning after getting up from sleep. She thinks its her migraine. SHe was in the bathroom washing up when she had bend down . She became dizzy and started the severe headache. no nausea or vomiting. She has been having this headache every 2 or 3 days. 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 Step father 3 weeks ago since then headaches has worsened. She does not want narcotics as she had narcotic dependence before and has just been able to come off it in April. Says benadryl helps withthe migraine headache Objective Physical Examination General Exam: Positive: No Acute Distress Eye Exam: Positive: Conjunctiva & lids normal, PERRLA ENT Exam: Positive: Atraumatic, Mucous membr. moist/pink, Pharynx Normal Chest Exam: Positive: Clear to auscultation, Normal air movement Heart Exam: Positive: Normal S1, Normal S2, Rate Normal, Regular Rhythm, Negative: Murmurs, Rubs Telemetry: Positive: No significant arrhythmia Abdomen Exam: Positive: Normal bowel sounds, Soft, Negative: Hepatospenomegaly, Tenderness Extremity Exam: Positive: Normal pulses, Negative: Clubbing, Cyanosis, Edema Skin Exam: Positive: Nl turgor and temperature, Negative: Breakdown, Rash Assessment /Plan Problems (1) Migraine Status: Acute Problem Text: * pt states she has history of migraines * Has been having reccurent attacks in the hospital , allergic to many medications, * will continue with tylenol and benadryl prn. * will ask neurology to evaluate for assisted prophylaxis. (2) Anemia Status: Acute Response to Treatment: Improving Problem Text: * iron deficiency may be secondary to malabsorption, continue iron po * s/p blood transfusion * no signs of active bleeding * occult blood is positive, pt had a recent colonoscope that was negative * scheduled for EGD and colonoscopy today. (3) Narcotic dependence, in remission Status: Chronic (4) Allergic reaction Status: Resolved Problem Text: Had allergic reaction to iv venofer, itching resolved. (5) Status post gastric bypass for obesity Status: Chronic Problem Text: had many abdominal surgeries for complications related to gastric bypass surgery and abdominal hernias. Plan/VTE VTE Prophylaxis Ordered?: Yes Plan/Urinary Catheter Reason for insertion/continuin: Acute obstruct/retention VS, I&O, 24H, Fishbone Vital Signs/I&O Vital Signs Date Time Temp Pulse Resp B/P Pulse Ox O2 Delivery O2 Flow Rate FiO2 07/02/16 07:30 97.8 62 20 128/52 99 Room Air 06/28/16 07:50 1.0 I&O- Last 24 Hours up to 6 AM 07/02/16 06:00 Intake Total 1470 ml Output Total 1505 ml Balance -35 ml Laboratory Data 24H LABS Laboratory Tests 2 07/02/16 05:33: Blood Urea Nitrogen 7, Creatinine 0.58, Sodium Level 142, Potassium Level 3.9, Chloride Level 104, Carbon Dioxide Level 32, Calcium Level 7.6L, Aspartate Amino Transf (AST/SGOT) 23, Alanine Aminotransferase (ALT/SGPT) 25, Alkaline Phosphatase 136H, Total Bilirubin 0.3, Total Protein 5.4L, Albumin 2.7L, Albumin /Globulin Ratio 1.00, Anion Gap 6L, Anisocytosis 2+, White Blood Count 4.9, Red Blood Count 4.38, Hemoglobin 9.5L, Hematocrit 32.5L, Mean Corpuscular Volume 74.3L, Mean Corpuscular Hemoglobin 21.6L, Mean Corpuscular Hemoglobin Concent 29.1L, Red Cell Distribution Width 18.1H, Platelet Count 289, Neutrophils (%) ( Auto) 68.4H, Lymphocytes (%) (Auto) 18.2L, Monocytes (%) (Auto) 7.8H, Eosinophils (%) (Auto) 3.3H, Basophils (%) (Auto) 0.5, Neutrophils # (Auto) 3.4 , Lymphocytes # (Auto) 0.9L, Monocytes # (Auto) 0.4, Eosinophils # (Auto) 0.2, Basophils # (Auto) 0.0, Glomerular Filtration Rate > 60.0, Hypochromasia 3+, Large Unclassified Cells # 0.1, Large Unclassified Cells % 1.8, Magnesium Level 2.0, Microcytosis 2+, Platelet Estimate NORMAL, Red Blood Cell Morphology NORMAL CBC/BMP Laboratory Tests 3/21/17 05:33 Calcium Level 7.6 L, Aspartate Amino Transf (AST/SGOT) 23, Alanine Aminotransferase (ALT/SGPT) 25, Alkaline Phosphatase 136 H, Total Bilirubin 0.3 , Total Protein 5.4 L, Albumin 2.7 L, Red Blood Count 4.38, Mean Corpuscular Volume 74.3 L, Mean Corpuscular Hemoglobin 21.6 L, Mean Corpuscular Hemoglobin Concent 29.1 L, Red Cell Distribution Width 18.1 H, Neutrophils (%) (Auto) 68.4 H, Lymphocytes (%) (Auto) 18.2 L, Monocytes (%) (Auto) 7.8 H, Eosinophils (%) ( Auto) 3.3 H, Basophils (%) (Auto) 0.5, Neutrophils # (Auto) 3.4, Lymphocytes # ( Auto) 0.9 L, Monocytes # (Auto) 0.4, Eosinophils # (Auto) 0.2, Basophils # (Auto ) 0.0 Microbiology Microbiology 07/01/16 Stool Occult Blood (ESTELA) - Final, Complete 06/30/16 Stool Occult Blood (ESTELA) - Final, Complete 06/28/16 MRSA Screen - Final, Complete ADALID WILLIAMSON MD Jul 02, 2016 10:52
[2016-07-02] MEDS ORDERED: LIDOCAINE 2% INJ 100 MG/5 ML SDV (FOR ANES.) As Ordered ONE (15:26)
[2016-07-02] MEDS ORDERED: PROPOFOL 200 MG/20 ML VIAL As Ordered ONE (15:26)
--- NOTE | 2016-07-02 15:35 | ROOR ---
Patient Name: Miranda Ferreira Procedure Date: 07/02/2016 3:17 PM Date of : 1970 Age: 45 Room: [facility] Gender: Female Note Status: Finalized Procedure: Upper GI endoscopy Indications: Iron deficiency anemia, Status post Roberta-en-Y Providers: James SETH MD Referring MD: 2. Inpatient 2. Inpatient Requesting Provider: Medicines: Monitored Anesthesia Care Complications: No immediate complications. Procedure: Pre-Anesthesia Assessment: - The heart rate, respiratory rate, oxygen saturations, blood pressure, adequacy of pulmonary ventilation, and response to care were monitored throughout the procedure. The Endoscope was introduced through the mouth, and advanced to the jejunum. The upper GI endoscopy was accomplished without difficulty. The patient tolerated the procedure well. Findings: A Zenker's diverticulum with a moderate sized opening, impacted food and no stigmata of recent bleeding was found. Candidiasis was found in the entire esophagus. Evidence of a Roberta-en-Y gastrojejunostomy was found. The gastrojejunal anastomosis was characterized by healthy appearing mucosa. The examined jejunum was normal. Biopsies for histology were taken with a cold forceps for evaluation of celiac disease. Impression: - Zenker's diverticulum. - Monilial esophagitis. - Roberta-en-Y gastrojejunostomy with gastrojejunal anastomosis characterized by healthy appearing mucosa. - Normal examined jejunum. Biopsied. Recommendation: - Nystatin suspension 100,000 units PO QID for 1 week. - Observe patient's clinical course. James Seth MD James SETH MD 07/02/2016 3:34:43 PM This report has been signed electronically. Number of Addenda: 0 Note Initiated On: 07/02/2016 3:17 PM Estimated Blood Loss: Estimated blood loss: none.
--- NOTE | 2016-07-02 15:54 | ROOR ---
Patient Name: Miranda Ferreira Procedure Date: 07/02/2016 3:19 PM Date of : 1970 Age: 45 Room: [facility] Gender: Female Note Status: Finalized Procedure: Colonoscopy Indications: Iron deficiency anemia Providers: James SETH MD Referring MD: 2. Inpatient 2. Inpatient Requesting Provider: Medicines: Monitored Anesthesia Care Complications: No immediate complications. Procedure: Pre-Anesthesia Assessment: - The heart rate, respiratory rate, oxygen saturations, blood pressure, adequacy of pulmonary ventilation, and response to care were monitored throughout the procedure. The Colonoscope was introduced through the anus and advanced to the ileocolonic anastomosis. The colonoscopy was performed without difficulty. The patient tolerated the procedure well. The quality of the bowel preparation was fair. Findings: The perianal and digital rectal examinations were normal. (EXAM: Complete, PREP: Fair/Adequate) There was evidence of a prior svjf-ah-[id number] ileo-colonic anastomosis in the transverse colon. This was patent and was characterized by erosion and an intact appearance. The anastomosis was traversed. This was biopsied with a cold forceps for histology. The mohsen-terminal ileum appeared normal. The colon (entire examined portion) appeared normal. Impression: - Preparation of the colon was fair. - S/P Right Hemicolectomy: Patent [id number] ileo-colonic anastomosis, characterized by two shallow erosions but otherwise normal/intact appearance. Biopsied. - The examined portion of the ileum was normal. - The entire examined colon is normal. - Moderate internal hemorrhoids. Recommendation: - Await pathology results. - Return to primary care physician. - Telephone my office for pathology results in 2 weeks. James Seth MD James SETH MD 07/02/2016 3:54:17 PM This report has been signed electronically. Number of Addenda: 0 Note Initiated On: 07/02/2016 3:19 PM Estimated Blood Loss: Estimated blood loss: none.
[2016-07-02] MEDS: NYSTATIN 500,000 U/5 ML SUSP UDC PO SCH ×2 (17:14→20:10)
[2016-07-02] MEDS: diphenhydrAMINE INJ 50MG/ML VIAL (J1200) IV PRN (22:19)
[2016-07-02] MEDS: SODIUM CHLORIDE 0.9% INJ 10 ML SYR IV PRN (22:20)
[2016-07-03] MEDS: KETOROLAC 30 MG/ML VIAL (J1885) IV SCH ×3 (00:47→18:07)
[2016-07-03] MEDS: SODIUM CHLORIDE 0.9% INJ 10 ML SYR IV SCH ×3 (05:39→21:19)
[2016-07-03 06:00] VITALS: BP 137/80
[2016-07-03 06:14] LABS: BASO % 0.2 % (0.0-1.0); EOS # 0.3 K/mm3 (0.0-0.50); EOS % 6.5 % (0.0-3.0); LARGE UNSTAINED CELL # 0.1 K/mm3 (0.0-0.4); LARGE UNSTAINED CELL % 2.8 % (0.0-4.0); LYMPH # 1.4 K/mm3 (1.5-4.5); LYMPH % 29.3 % (24.0-44.0); MEAN CORPUSCULAR HEMOGLOBIN 22.3 pg (27.0-33.0); MEAN CORPUSCULAR HGB CONC 29.8 g/dl (32.0-36.5); MEAN CORPUSCULAR VOLUME 74.7 fl (80.0-96.0); MONO # 0.4 K/mm3 (0.0-0.8); NEUTROPHILS # 2.5 K/mm3 (1.8-7.7); NEUTROPHILS % 52.2 % (36.0-66.0); PLATELET COUNT, AUTOMATED 233 k/mm3 (150-450); RED CELL DISTRIBUTION WIDTH 18.8 % (11.5-14.5); WHITE BLOOD COUNT 4.7 K/mm3 (4.0-10.0)
[2016-07-03 06:27] LABS: ALBUMIN 2.9 GM/DL (3.2-5.2); ALKALINE PHOSPHATASE 153 U/L (45-117); ALT/SGPT 32 U/L (12-78); ANION GAP 6 MEQ/L (8-16); AST/SGOT 35 U/L (15-37); BILIRUBIN,TOTAL 0.3 MG/DL (0.2-1.0); BLOOD UREA NITROGEN 6 MG/DL (7-18); CARBON DIOXIDE LEVEL 30 MEQ/L (21-32); CHLORIDE LEVEL 107 MEQ/L (98-107); CREATININE FOR GFR 0.62 MG/DL (0.55-1.02); GLOMERULAR FILTRATION RATE > 60.0 (>58); GLUCOSE, FASTING 82 MG/DL (70-105); MAGNESIUM LEVEL 2.1 MG/DL (1.8-2.4); POTASSIUM SERUM 3.6 MEQ/L (3.5-5.1); SODIUM LEVEL 143 MEQ/L (136-145); TOTAL PROTEIN 5.8 GM/DL (6.4-8.2)
--- NOTE | 2016-07-03 08:53 | REP ---
Clinical: Neck pain. Status post fusion. Technique: AP lateral and open mouth views. Findings: The patient is status post anterior fusion and prosthetic disc at the C6-7 level. Prior surgical intervention at the C5-6 level noted. Alignment is relatively well maintained. No acute fracture / compression injury or subluxation. C1-C2 articulation and odontoid process are normal. Impression: Status post anterior fusion at the C6-7 level. No acute fracture / compression injury or subluxation. Signed by Alec Youssef MD 07/03/2016 08:44 A
--- NOTE | 2016-07-03 09:33 | REP ---
CHEST, TWO VIEWS: Two views of the chest are performed and compared to prior single view chest 07/01/2016. Right jugular line is seen with the tip at the junction of the superior vena cava and right atrium. Left subclavian MediPort catheter is seen with the tip in the superior vena cava. There is no pneumothorax. There is no acute infiltrate. The heart is normal in size. The mediastinal silhouette is unremarkable. Metallic plate and screws are seen in the lower cervical spine. There are metallic clips in the upper abdomen. IMPRESSION: Bilateral central venous catheters are above. No acute pulmonary disease. Signed by Beni Cook MD 07/03/2016 12:42 P
[2016-07-03] MEDS: PANTOPRAZOLE 40MG TAB (PROTONIX) PO SCH (10:22)
[2016-07-03] MEDS: FERROUS GLUCONATE 324 MG TAB PO SCH ×2 (10:22→21:18)
[2016-07-03] MEDS: NYSTATIN 500,000 U/5 ML SUSP UDC PO SCH ×4 (10:23→21:18)
[2016-07-03] MEDS: diphenhydrAMINE INJ 50MG/ML VIAL (J1200) IV PRN (10:24)
[2016-07-03] MEDS: SODIUM CHLORIDE 0.9% INJ 10 ML SYR IV PRN (10:25)
--- NOTE | 2016-07-03 11:26 | CR ---
DATE OF CONSULTATION: 07/03/2016 REASON FOR CONSULTATION: Is headache. HISTORY OF PRESENTING ILLNESS: Miranda Ferreira was admitted to [facility]. She is a 45-year-old female with past medical history significant for migraine headaches, currently being watched for significant anemia. She underwent an upper endoscopy and colonoscopy today. The patient did have a headache, and she states that an acute headache usually responds very well to intravenous (IV) Benadryl. She gets one headache every couple months. Sometimes she goes to the emergency department, and IV Benadryl usually resolves the headache within 2-3 hours. The patient cannot tolerate triptan medications. Due to the infrequency of her migraines, she does not require prophylactic therapy at this time. She is requesting morphine and Benadryl, both of which can be helpful to treat her acute migraine headaches. The patient states the headaches are located bilateral frontal, and they can also stem from the back of the head. They are associated with significant light and sound sensitivity, nausea, dizziness, blurred vision. They are throbbing in character. PAST MEDICAL HISTORY: Migraine headaches, uterine cancer status post hysterectomy, gastric bypass surgery 7 years ago, episodes of syncope twice in the past 2 days, significant anemia, chronic upper back and neck pain, numerous abdominal hernia surgeries. PAST SURGICAL HISTORY: As outlined above. FAMILY HISTORY: Father with stroke. SOCIAL HISTORY: The patient denies use of tobacco, alcohol, or illicit drugs. REVIEW OF SYSTEMS: 14-point review of systems obtained and is negative except as per history of present illness (HPI). PHYSICAL EXAMINATION: Blood pressure is 151/81, pulse rate 74, respiratory rate is 16, temperature is 98 degrees Fahrenheit, oxygenation 97% on room air. The patient is alert, oriented to person, place, and time. Speech, language, comprehension, and repetition are intact. Pupils are 3 mm, round, reactive to light. Extraocular movement were intact without nystagmus. Sensation V1, V2, V3 is intact to light touch. No facial asymmetry on activation. Palate elevates symmetrically. Tongue is midline. No weakness of sternocleidomastoids bilaterally. Hearing is subjectively equal to finger rub. Strength is 5/5, including bilateral deltoid, biceps, triceps, handgrip. The left lower extremity demonstrates normal iliopsoas, quadriceps, anterior tibialis strength. The patient demonstrates reduced strength of the right lower extremity, which she attributes to her prior back surgeries and has difficulty raising her leg off of the bed and dorsiflexing at the ankle, which he states is her baseline. She has decreased light touch sensation in the right leg. Otherwise, light touch sensation is normal throughout the rest of the body. Normal [id number] without any signs of ataxia or dysmetria. Deep tendon reflexes are 2+ throughout with decreased Achilles reflexes and patellar reflexes. Romberg testing deferred. ASSESSMENT: 1. Acute migraine headache without aura with intractability. 2. Cervicalgia with a history of cervical spondylosis and prior cervical spine surgery. PLAN: 1. Obtain cervical spine series, x-rays, at the patient's request to check hardware alignment. 2. Continue Benadryl 50 mg IV every twice a day as needed migraine. Can consider low-dose morphine if needed. 3. The patient does not require any prophylactic therapy for migraines at this time. Migraines are usually very infrequent, occurring once every 2-3 months. Please call with any further questions.
[2016-07-03] MEDS ORDERED: MORPHINE 4 MG/ML 1ML SYRINGE IV ONE (13:15)
--- NOTE | 2016-07-03 13:16 | IPNPDOC ---
Subjective Date Seen The patient was seen on 07/03/16. Subjective Chief Complaint/HPI The patient is a 45-year-old female admitted with a reason for visit of Syncope. Events since last encounter complaining of shooting pain from the pelvis to the lg on the right , intermittent headache and neck pain, no fever or chills, no chest pain or sob. no abdominal pain Objective Physical Examination General Exam: Positive: No Acute Distress Eye Exam: Positive: Conjunctiva & lids normal, PERRLA ENT Exam: Positive: Atraumatic, Mucous membr. moist/pink, Pharynx Normal Chest Exam: Positive: Clear to auscultation, Normal air movement Heart Exam: Positive: Normal S1, Normal S2, Rate Normal, Regular Rhythm, Negative: Murmurs, Rubs Telemetry: Positive: No significant arrhythmia Abdomen Exam: Positive: Normal bowel sounds, Soft, Negative: Hepatospenomegaly, Tenderness Extremity Exam: Positive: Normal pulses, Negative: Clubbing, Cyanosis, Edema Skin Exam: Positive: Nl turgor and temperature, Negative: Breakdown, Rash Assessment /Plan Problems (1) Esophageal candidiasis Status: Acute Problem Text: will continue nystatin oral suspension (2) Migraine Status: Acute Problem Text: * pt states she has history of migraines * Has been having recurrent attacks in the hospital , allergic to many medications, * will continue with tylenol and benadryl prn. * does not need senior care prophylaxis. * cervical spine xray OK. (3) Anemia Status: Acute Response to Treatment: Improving Problem Text: * iron deficiency may be secondary to malabsorption, continue iron po * s/p blood transfusion * no signs of active bleeding * EGD shows zenkers diverticulum and esophageal candidiasis, colonoscopy shows side to side ileo colonic anastomosis with right hemicolectomy. Anastomosis is patent. 2 swallow erosions at the anastomotic site, which have been biopsied. (4) Narcotic dependence, in remission Status: Chronic (5) Allergic reaction Status: Resolved Problem Text: Had allergic reaction to iv venofer, itching resolved. (6) Status post gastric bypass for obesity Status: Chronic Problem Text: had many abdominal surgeries for complications related to gastric bypass surgery and abdominal hernias. (7) Zenkers diverticulum Status: Chronic Plan/VTE VTE Prophylaxis Ordered?: Yes Plan/Urinary Catheter Reason for insertion/continuin: Acute obstruct/retention VS, I&O, 24H, [facility] Vital Signs/I&O Vital Signs Date Time Temp Pulse Resp B/P Pulse Ox O2 Delivery O2 Flow Rate FiO2 07/03/16 06:00 97.3 65 16 137/80 96 Room Air 06/28/16 07:50 1.0 I&O- Last 24 Hours up to 6 AM 07/03/16 05:59 Intake Total 420 ml Output Total 925 ml Balance -505 ml Laboratory Data 24H LABS Laboratory Tests 2 07/03/16 05:40: Blood Urea Nitrogen 6L, Creatinine 0.62, Sodium Level 143, Potassium Level 3.6, Chloride Level 107, Carbon Dioxide Level 30, Calcium Level 8.0L, Aspartate Amino Transf (AST/SGOT) 35, Alanine Aminotransferase (ALT/SGPT) 32, Alkaline Phosphatase 153H, Total Bilirubin 0.3, Total Protein 5.8L, Albumin 2.9L, Albumin /Globulin Ratio 1.00, Anion Gap 6L, White Blood Count 4.7, Red Blood Count 4.51 , Hemoglobin 10.1L, Hematocrit 33.7L, Mean Corpuscular Volume 74.7L, Mean Corpuscular Hemoglobin 22.3L, Mean Corpuscular Hemoglobin Concent 29.8L, Red Cell Distribution Width 18.8H, Platelet Count 233, Neutrophils (%) (Auto) 52.2, Lymphocytes (%) (Auto) 29.3, Monocytes (%) (Auto) 9.0H, Eosinophils (%) (Auto) 6.5H, Basophils (%) (Auto) 0.2, Neutrophils # (Auto) 2.5, Lymphocytes # (Auto) 1.4L, Monocytes # (Auto) 0.4, Eosinophils # (Auto) 0.3, Basophils # (Auto) 0.0, Glomerular Filtration Rate > 60.0, Large Unclassified Cells # 0.1, Large Unclassified Cells % 2.8, Magnesium Level 2.1 CBC/BMP Laboratory Tests 07/03/16 05:40 Calcium Level 8.0 L, Aspartate Amino Transf (AST/SGOT) 35, Alanine Aminotransferase (ALT/SGPT) 32, Alkaline Phosphatase 153 H, Total Bilirubin 0.3 , Total Protein 5.8 L, Albumin 2.9 L, Red Blood Count 4.51, Mean Corpuscular Volume 74.7 L, Mean Corpuscular Hemoglobin 22.3 L, Mean Corpuscular Hemoglobin Concent 29.8 L, Red Cell Distribution Width 18.8 H, Neutrophils (%) (Auto) 52.2 , Lymphocytes (%) (Auto) 29.3, Monocytes (%) (Auto) 9.0 H, Eosinophils (%) (Auto ) 6.5 H, Basophils (%) (Auto) 0.2, Neutrophils # (Auto) 2.5, Lymphocytes # (Auto ) 1.4 L, Monocytes # (Auto) 0.4, Eosinophils # (Auto) 0.3, Basophils # (Auto) 0.0 Microbiology Microbiology 07/01/16 Stool Occult Blood (ESTELA) - Final, Complete 06/30/16 Stool Occult Blood (ESTELA) - Final, Complete 06/28/16 MRSA Screen - Final, Complete ADALID WILLIAMSON MD Jul 03, 2016 13:15
[2016-07-03] MEDS: tiZANidine 4 MG TAB PO PRN ×2 (13:38→21:18)
[2016-07-03 14:00] VITALS: BP 87/56
[2016-07-03] MEDS ORDERED: IRON SUCROSE 100 MG/5 ML INJ (J1756) IV ONE (15:15)
[2016-07-03 15:46] VITALS: BP 98/64
[2016-07-03 17:15] VITALS: BP 117/78
[2016-07-03] MEDS ORDERED: diphenhydrAMINE INJ 50MG/ML VIAL (J1200) IV ONE (20:30)
[2016-07-03] MEDS ORDERED: IRON SUCROSE 500 MG in NS 250 ML IV ONE (21:00)
[2016-07-03 22:00] VITALS: BP 118/76
[2016-07-03 23:00] VITALS: BP 94/68
[2016-07-03] MEDS ORDERED: methylPREDNISolone INJ 40 MG/1 ML VIAL (J2920) IV ONE (23:30)
[2016-07-03] MEDS ORDERED: NS 1,000 ML IV ONE (23:30)
[2016-07-04 00:49] VITALS: BP 128/72
[2016-07-04] MEDS: SODIUM CHLORIDE 0.9% INJ 10 ML SYR IV SCH (05:31)
[2016-07-04] MEDS: tiZANidine 4 MG TAB PO PRN ×2 (05:34→10:45)
[2016-07-04 06:00] VITALS: BP 122/78
[2016-07-04 06:39] LABS: BASO % 0.1 % (0.0-1.0); EOS % 1.3 % (0.0-3.0); LARGE UNSTAINED CELL # 0.1 K/mm3 (0.0-0.4); LARGE UNSTAINED CELL % 1.8 % (0.0-4.0); LYMPH # 0.8 K/mm3 (1.5-4.5); LYMPH % 19.1 % (24.0-44.0); MEAN CORPUSCULAR HEMOGLOBIN 22.5 pg (27.0-33.0); MEAN CORPUSCULAR HGB CONC 29.7 g/dl (32.0-36.5); MEAN CORPUSCULAR VOLUME 75.8 fl (80.0-96.0); MONO # 0.1 K/mm3 (0.0-0.8); MONO % 2.6 % (0.0-5.0); NEUTROPHILS # 3.1 K/mm3 (1.8-7.7); NEUTROPHILS % 75.2 % (36.0-66.0); PLATELET COUNT, AUTOMATED 200 k/mm3 (150-450); RED CELL DISTRIBUTION WIDTH 19.1 % (11.5-14.5); WHITE BLOOD COUNT 4.1 K/mm3 (4.0-10.0)
[2016-07-04 06:42] LABS: ALBUMIN 2.7 GM/DL (3.2-5.2); ALBUMIN/GLOBULIN RATIO 0.93 (1.00-1.93); ALKALINE PHOSPHATASE 141 U/L (45-117); ALT/SGPT 26 U/L (12-78); ANION GAP 9 MEQ/L (8-16); AST/SGOT 19 U/L (15-37); BILIRUBIN,TOTAL 0.2 MG/DL (0.2-1.0); BLOOD UREA NITROGEN 12 MG/DL (7-18); CALCIUM LEVEL 7.6 MG/DL (8.5-10.1); CARBON DIOXIDE LEVEL 26 MEQ/L (21-32); CHLORIDE LEVEL 108 MEQ/L (98-107); CREATININE FOR GFR 0.82 MG/DL (0.55-1.02); GLOMERULAR FILTRATION RATE > 60.0 (>58); GLUCOSE, FASTING 185 MG/DL (70-105); MAGNESIUM LEVEL 1.9 MG/DL (1.8-2.4); POTASSIUM SERUM 3.8 MEQ/L (3.5-5.1); SODIUM LEVEL 143 MEQ/L (136-145); TOTAL PROTEIN 5.6 GM/DL (6.4-8.2)
[2016-07-04] MEDS: diphenhydrAMINE INJ 50MG/ML VIAL (J1200) IV PRN (08:16)
[2016-07-04] MEDS: NYSTATIN 500,000 U/5 ML SUSP UDC PO SCH (08:16)
[2016-07-04] MEDS: FERROUS GLUCONATE 324 MG TAB PO SCH (08:16)
[2016-07-04] MEDS: PANTOPRAZOLE 40MG TAB (PROTONIX) PO SCH (08:16)
[2016-07-04] MEDS ORDERED: ZANA4TAB PO (10:34)
[2016-07-04] MEDS ORDERED: FERR32TA PO (10:34)
[2016-07-04] MEDS ORDERED: PANT40TA2 PO (10:34)
[2016-07-04] MEDS ORDERED: NYST50SS PO (10:34)
--- NOTE | 2016-07-05 10:31 | DSES ---
DATE OF ADMISSION: 06/28/2016 DATE OF DISCHARGE: 07/04/2016 PRIMARY CARE PROVIDER: NIESHA Darden DISCHARGE DIAGNOSES: 1. Esophageal candidiasis. 2. Migraine. 3. Severe iron deficiency anemia. 4. Zenker's diverticulum. 5. Narcotic dependence in remission. 6. Allergic reaction to intravenous (IV) Venofer. 7. Status post gastric bypass surgery for obesity with Roberta-en-Y gastrojejunostomy. 8. History of right hemicolectomy with severe colonic anastomosis. 9. Infection of left subclavian and Infusaport due to very poor vascular access. 10. Syncope due to orthostatic hypotension from severe anemia. 11. Chronic neck pain and back pains. 12. History of cervical vertebral fixation and cervicalgia. DISCHARGE MEDICATIONS: - ferrous gluconate 324 mg by mouth twice a day - nystatin oral suspension 10 mL by mouth four times a day - pantoprazole sodium 40 mg by mouth daily - tizanidine 2 mg by mouth twice a day as needed, muscle spasms HOSPITAL COURSE: This is a 45-year-old female presented to the emergency room (ER) for assumed severe anemia and two episodes of syncope, and two days prior to admission, patient had initially gone to [facility], where she was told that she was anemic and needed blood transfusion. However, they were unable to get intravenous (IV) access. She was discharged from emergency department (ED) and was told to come to [facility] for evaluation and blood transfusion. In the ED, she had a central line placed and blood transfusion started. She was noted to be anemic with a hemoglobin of 7.5. Further workup showed she was severely iron deficient and she was not on any iron supplementation after her bypass surgery. Her stool occult blood was 2 negative , 1 positive. So she underwent esophagogastroduodenoscopy (EGD) and colonoscopy. EGD showed a Zenker's diverticulum with moderate sized opening and impacted food. There was candidiasis was found in the anterior esophageal. There was evidence of Roberta-en-Y bypass gastric gastrojejunostomy. The gastrojejunal anastomosis was healthy. Biopsies were taken for evaluation for celiac disease. Patient was started on nystatin suspension for oral candidiasis. Colonoscopy showed evidence of prior side to side ileo colonic anastomosis in the transverse colon. The anastomosis was patent, but there was two superficial erosions. The patient was status post right hemicolectomy. Biopsies were taken. There was moderate internal hemorrhoids. Patient was evaluated by thoracic surgeon, Dr. Beltran, and because of her poor vascular access and the history of recurrent needs for blood transfusions and fluid resuscitation, she had a left subclavian Infusaport placement on 07/01/2016. Patient had severe episode of migraine along with neck pain during the hospitalization requiring morphine and Benadryl. She was evaluated by neurology , Dr. Cohen and she had a cervical x-ray, which showed that the cervical hardware was intact and the bones were in alignment. It was felt as she had migraine attacks every 2-3 months that she was not a candidate for long-term preventive measures. She was also felt to have some cervicalgia and muscle spasms. So she was started on muscle relaxant tizanidine, which seemed to help her. She received 2 units of blood transfusion with appropriate response in hemoglobin and hematocrit. At present, her symptoms have resolved and she is functionally at baseline with stable vitals and is going to be discharged home in stable condition. Patient was given IV Venofer. However, after about an hour of infusion, she started itching. So the infusion had to be stopped. After 3 or 4 days, we again tried to administer IV Venofer after giving Benadryl. However, again she had redness and itching all over her body. So we could not continue the IV iron. PHYSICAL EXAMINATION: VITAL SIGNS: Temperature 97.8, pulse 72, respiratory rate 18, blood pressure 122/78, pulse oximetry 97% on room air. GENERAL: Patient awake, alert, oriented times three, lying down in bed, in no acute distress. HEENT: Normocephalic, atraumatic. Moist mucous membranes. Anicteric eyes. CHEST: Clear to auscultation. CARDIOVASCULAR: S1, S2 regular. No rub, murmur or gallop. ABDOMEN: Soft, nontender. Bowel sounds present. EXTREMITIES: No edema. LABORATORY DATA: WBC 4.1, hemoglobin 9.8, platelets 200. Sodium 143, potassium 3.8, chloride 108, bicarbonate 26, BUN 12, creatinine 0.8, glucose 82, calcium 7.6, magnesium 1.9. Liver function tests were normal. Iron 11, ferritin 2, transferrin saturation 2.2%, folate 7.5, vitamin B12 382. Chest x-ray showed no acute pulmonary disease. Abdominal and pelvic CT scan showed no acute abdominopelvic pathology. DISPOSITION: Patient is discharged home in stable condition. DISCHARGE INSTRUCTIONS: Patient to followup with primary care provider in 2 weeks. Patient to followup with Dr. Beltran as directed. Patient to followup with Dr. Seth's office for pathology result. If she has recurrent episodes of migraines, patient can call Dr. Solano's office to schedule an appointment. Regular diet. Activity as tolerated. MTDD
== END 2016-07-04 13:00 | disposition home or self-care (01) | DRG 663 ==
LOC: M ED 06-28 00:37 → M ED INP 06-28 00:40 → M PCU 06-28 14:33 → M MSPAV 07-02 20:45
PROVIDERS: ADMIT Internal Medicine; ATTEND Internal Medicine Nephrology
PROC: 30253N1 (ICD-10-PCS; principal; 2016-06-28)
PROC: 02HV03Z Insertion of Infusion Device into Superior Vena Cava, Open Approach (ICD-10-PCS; 2016-07-01)
PROC: 0DBA8ZX Excision of Jejunum, Via Natural or Artificial Opening Endoscopic, Diagnostic (ICD-10-PCS; 2016-07-02)
PROC: 0DBB8ZX Excision of Ileum, Via Natural or Artificial Opening Endoscopic, Diagnostic (ICD-10-PCS; 2016-07-02)
DX: D50.9 Iron deficiency anemia, unspecified (principal); B37.81 Candidal esophagitis; K90.0 Celiac disease; R55 Syncope and collapse; G43.019 Migraine without aura, intractable, without status migrainosus; F11.21 Opioid dependence, in remission; Z88.8 Allergy status to other drugs, medicaments and biological substances; Z98.84 Bariatric surgery status; Z90.710 Acquired absence of both cervix and uterus; Z85.42 Personal history of malignant neoplasm of other parts of uterus; Z88.6 Allergy status to analgesic agent; Z91.041 Radiographic dye allergy status; Z88.0 Allergy status to penicillin; Z88.5 Allergy status to narcotic agent; T45.4X5A Adverse effect of iron and its compounds, initial encounter; K22.5 Diverticulum of esophagus, acquired; K64.8 Other hemorrhoids; Z98.0 Intestinal bypass and anastomosis status; M54.2 Cervicalgia

== ENCOUNTER → 2016-07-15 | Outpatient (CLI) | payer BC, OTHER ==
[~2016-07-15] MED LIST changes: +FERR32TA PO; +NYST50SS PO; +PANT40TA2 PO; +ZANA4TAB PO
--- NOTE | 2016-07-15 12:57 | REP ---
PA and lateral chest: Comparison 07/03. There is a left subclavian central venous catheter with the tip at the confluence of the innominate vein and superior vena cava in satisfactory location, similar to the prior study. The previous right IJ central venous catheter has been removed. There is no pneumothorax, hemothorax or pulmonary contusion. Lung conn are clear. Cardiac size is normal. The bob, mediastinum, and bony thorax are unremarkable. There is a cervical spine stabilization plate. There are surgical clips and amrita in the visualized upper abdomen. Signed by Beni Arredondo MD 07/15/2016 12:48 P
== END ==
LOC: M SMT 11:42
PROVIDERS: ATTEND Thoracic Surgery (Cardiothoracic Vascular Surgery)
DX: Z45.2 Encounter for adjustment and management of vascular access device (principal)

== ENCOUNTER → 2016-07-15 | Outpatient (CLI) | payer BC, OTHER ==
[2016-07-15 14:05] LABS: MEAN CORPUSCULAR HEMOGLOBIN 24.4 pg (27.0-33.0); MEAN CORPUSCULAR HGB CONC 30.3 g/dl (32.0-36.5); MEAN CORPUSCULAR VOLUME 80.5 fl (80.0-96.0); WHITE BLOOD COUNT 4.4 K/mm3 (4.0-10.0)
== END ==
LOC: M LAB 12:50
PROVIDERS: ATTEND Thoracic Surgery (Cardiothoracic Vascular Surgery)
DX: D50.9 Iron deficiency anemia, unspecified (principal)

== ENCOUNTER 2016-07-29 16:48 | Emergency (ER) | payer BC, OTHER ==
[~2016-07-29] VITALS: Ht 152.4 cm; Wt 54.4 kg
[2016-07-29] MEDS ORDERED: ACETAMINOPH W/CODEINE #3 TAB UD PO ONE (17:30)
[2016-07-29] MEDS ORDERED: ONDANSETRON 4 MG ORAL DISINTEGRATING TAB (S0181) PO ONE (17:30)
[2016-07-29 18:04] LABS: MEAN CORPUSCULAR HEMOGLOBIN 24.6 pg (27.0-33.0); MEAN CORPUSCULAR HGB CONC 29.9 g/dl (32.0-36.5); MEAN CORPUSCULAR VOLUME 82.2 fl (80.0-96.0); PLATELET COUNT, AUTOMATED 265 k/mm3 (150-450); RED CELL DISTRIBUTION WIDTH 21.5 % (11.5-14.5); WHITE BLOOD COUNT 2.8 K/mm3 (4.0-10.0)
[2016-07-29 18:24] LABS: ANION GAP 8 MEQ/L (8-16); BLOOD UREA NITROGEN 9 MG/DL (7-18); CALCIUM LEVEL 8.2 MG/DL (8.5-10.1); CARBON DIOXIDE LEVEL 26 MEQ/L (21-32); CHLORIDE LEVEL 106 MEQ/L (98-107); CREATININE FOR GFR 0.94 MG/DL (0.55-1.02); GLOMERULAR FILTRATION RATE > 60.0 (>58); GLUCOSE, FASTING 227 MG/DL (70-105); POTASSIUM SERUM 3.7 MEQ/L (3.5-5.1); SODIUM LEVEL 140 MEQ/L (136-145)
[2016-07-29 18:38] LABS: ANISOCYTOSIS 2+; MICROCYTOSIS 1+; OVALOCYTES 1+
[2016-07-29] MEDS ORDERED: ACET30TAB PO (18:59)
[2016-07-29 19:14] VITALS: BP 133/83
== END 2016-07-29 19:22 | disposition home or self-care (01) ==
LOC: M ED 19:22
DX: G62.9 Polyneuropathy, unspecified (principal); I10 Essential (primary) hypertension; J30.2 Other seasonal allergic rhinitis; Z88.8 Allergy status to other drugs, medicaments and biological substances; Z88.0 Allergy status to penicillin; Z98.890 Other specified postprocedural states; Z98.0 Intestinal bypass and anastomosis status

== ENCOUNTER → 2016-08-02 | Outpatient (CLI) | payer BC, OTHER ==
[~2016-08-02] MED LIST changes: +ACET30TAB PO; +E-Z-GAS II EFFERVESCENT PACKET (SODIUM BICARB./CITRIC ACID/SIMETHICONE) As Ordered ONE; +E-Z-HD 98% w/w 340GM SUSP BTL As Ordered ONE; +E-Z-PAQUE 96% w/w SUSP 176GM BTL As Ordered ONE
--- NOTE | 2016-08-02 16:06 | REP ---
ESOPHAGRAM: The procedure was performed under the direct supervision of Dr. Dempsey. The images were reviewed with Dr. Dempsey. A single view PA chest x-ray is submitted as a sound tester film. There is no change compared to a previous chest x-ray performed on 07/15/2016. There is a cervical spine stabilization plate identified. There are surgical clips and amrita visualized in the upper abdomen consistent with the patient's history of gastric bypass and cholecystectomy. Liquid barium was given in the erect and prone oblique positions. During the oral and pharyngeal stages of deglutition there is laryngeal penetration. The cervical stabilization plate is identified at the C6-7 level. This causes no appreciable mass effect on the posterior esophagus. At this level, there is a diverticulum seen to the right of midline in the esophagus. The diverticulum measures 1.6 cm. The mouth of the diverticulum measures 8 mm. This may be related to postoperative fibrosis. During esophageal transport there are tertiary waves demonstrated. There is no evidence of esophagitis, stricture, or mucosal ring. There is a small sliding type hiatal hernia present. There is gastroesophageal reflux demonstrated to above the level of the gene. There are postoperative changes of the stomach consistent with patient's history of gastric bypass. Contrast is seen passing through the anastomosis without delay. IMPRESSION: 1. There is laryngeal penetration. 2. There is a diverticulum seen at the C7-T1 level extending to the right of midline. This measures 1.2 cm. The mouth of the diverticulum measures 8 mm. This may be related to postoperative fibrosis. 3. Tertiary waves. 4. There is a small sliding type hiatal hernia present. There is gastroesophageal reflux demonstrated to above the level of the gene. 1 minute and 4 seconds of fluoroscopy time was utilized for this procedure. Reviewed by CHLOE Sebastian 08/02/2016 04:18 PEdited and Signed by James Dempsey MD 08/02/2016 04:59 P
== END ==
LOC: M RAD 08:54
PROVIDERS: ATTEND Internal Medicine Gastroenterology
DX: K22.5 Diverticulum of esophagus, acquired (principal); K44.9 Diaphragmatic hernia without obstruction or gangrene; K21.9 Gastro-esophageal reflux disease without esophagitis

== ENCOUNTER → 2016-09-02 | Outpatient (CLI) | payer BC, OTHER ==
[~2016-09-02] MED LIST changes: -E-Z-GAS II EFFERVESCENT PACKET (SODIUM BICARB./CITRIC ACID/SIMETHICONE) As Ordered ONE; -E-Z-HD 98% w/w 340GM SUSP BTL As Ordered ONE; -E-Z-PAQUE 96% w/w SUSP 176GM BTL As Ordered ONE
--- NOTE | 2016-09-02 19:19 | REP ---
Clinical: Chest pain . Comparison: 07/15/2016 . Technique: PA and lateral. Findings: The mediastinum and cardiac silhouette are normal. Left-sided [id number] with tip in the SVC/brachiocephalic confluence. The lung conn are clear and without acute consolidation, effusion, or pneumothorax. The skeletal structures are intact and normal. Evidence for prior anterior cervical fusion. Impression: 1. No acute cardiopulmonary process. Signed by Alec Youssef MD 09/02/2016 07:09 P
== END ==
LOC: M WUC 18:53
PROVIDERS: ATTEND Physician Assistant
DX: R07.9 Chest pain, unspecified (principal)

== ENCOUNTER → 2016-09-03 | Outpatient (CLI) | payer BC, OTHER ==
[2016-09-03 09:31] LABS: BASO % 1.1 % (0.0-1.0); EOS # 0.2 K/mm3 (0.0-0.50); EOS % 5.1 % (0.0-3.0); LARGE UNSTAINED CELL # 0.1 K/mm3 (0.0-0.4); LARGE UNSTAINED CELL % 1.9 % (0.0-4.0); LYMPH # 1.5 K/mm3 (1.5-4.5); LYMPH % 33.2 % (24.0-44.0); MEAN CORPUSCULAR HEMOGLOBIN 28.3 pg (27.0-33.0); MEAN CORPUSCULAR HGB CONC 32.4 g/dl (32.0-36.5); MEAN CORPUSCULAR VOLUME 87.3 fl (80.0-96.0); MONO # 0.3 K/mm3 (0.0-0.8); MONO % 7.7 % (0.0-5.0); NEUTROPHILS # 2.1 K/mm3 (1.8-7.7); PLATELET COUNT, AUTOMATED 194 k/mm3 (150-450); RED CELL DISTRIBUTION WIDTH 20.3 % (11.5-14.5); WHITE BLOOD COUNT 4.2 K/mm3 (4.0-10.0)
== END ==
LOC: M WUC 08:12
PROVIDERS: ATTEND Physician Assistant
DX: D64.9 Anemia, unspecified (principal)

== ENCOUNTER → 2016-09-18 | Outpatient (CLI) | payer BC, OTHER ==
--- NOTE | 2016-09-18 12:34 | REP ---
CT Head without contrast HISTORY: Dizziness COMPARISON: 09/03/2008 There is no intraparenchymal hemorrhage, acute infarct, mass or midline shift. The ventricular system is normal in appearance. There is no extra cerebral collection. There is no fracture. The visualized sinuses are clear. IMPRESSION: There is no intracranial lesion. Signed by Abhi Hogan MD 09/18/2016 12:26 P
== END ==
LOC: M RAD 12:02
PROVIDERS: ATTEND Physician Assistant
DX: R42 Dizziness and giddiness (principal)

== ENCOUNTER → 2016-10-01 | Outpatient (CLI) | payer BC, OTHER ==
[2016-10-01 11:35] LABS: BASO % 0.7 % (0.0-1.0); EOS # 0.1 K/mm3 (0.0-0.50); EOS % 3.2 % (0.0-3.0); LARGE UNSTAINED CELL # 0.1 K/mm3 (0.0-0.4); LARGE UNSTAINED CELL % 1.7 % (0.0-4.0); LYMPH # 1.4 K/mm3 (1.5-4.5); MEAN CORPUSCULAR HEMOGLOBIN 29.3 pg (27.0-33.0); MEAN CORPUSCULAR HGB CONC 33.8 g/dl (32.0-36.5); MEAN CORPUSCULAR VOLUME 86.7 fl (80.0-96.0); MONO # 0.4 K/mm3 (0.0-0.8); MONO % 8.3 % (0.0-5.0); NEUTROPHILS # 2.5 K/mm3 (1.8-7.7); PLATELET COUNT, AUTOMATED 238 k/mm3 (150-450); RED CELL DISTRIBUTION WIDTH 18.1 % (11.5-14.5); WHITE BLOOD COUNT 4.5 K/mm3 (4.0-10.0)
== END ==
LOC: M LAB 10:42
PROVIDERS: ATTEND Physician Assistant
DX: I82.C21 Chronic embolism and thrombosis of right internal jugular vein (principal)

== ENCOUNTER → 2016-10-09 | Outpatient (CLI) | payer BC, OTHER ==
[~2016-10-09] MED LIST changes: -LIDO5DIS36 TD; +LIDO5DIS41 TD; +TYLE500T78 PO; +XARE20TA
--- NOTE | 2016-10-09 09:14 | REP ---
Clinical: Chest pain and shortness of breath . Comparison: 09/02/2016 . Technique: PA and lateral. Findings: The mediastinum and cardiac silhouette are normal. Htmbfr-V-Amik with tip in stable position. The lung conn are clear and without acute consolidation, effusion, or pneumothorax. The skeletal structures are intact and normal. Evidence for prior cervical effusion, gastric bypass surgery and cholecystectomy. Impression: 1. No acute cardiopulmonary process. Signed by Alec Youssef MD 10/09/2016 09:05 A
--- NOTE | 2016-10-09 09:24 | REP ---
Ventilation-perfusion lung scan: History: New onset shortness of breath and chest pain. Question pulmonary embolism. Technique: 1.0 mCi of technetium-99m DTPA aerosol is utilized for the ventilation study and was followed by a 5.4 mCi dose of technetium-99m MAA given intravenously for the perfusion examination. Eight planar images are required for each portion of the study. Scintigraphic findings: Perfusion scan uptake is normal and homogeneous. No perfusion scan defect is seen. Ventilation scan images demonstrate minimal central bronchial deposition of inspired tracer. Otherwise homogeneous ventilation uptake. Impression: Negative ventilation perfusion lung scan. No evidence to suggest pulmonary embolus. Signed by James Dempsey MD 10/09/2016 03:22 P
== END ==
LOC: M RAD 08:02
PROVIDERS: ATTEND Physician Assistant
DX: R07.9 Chest pain, unspecified (principal)

== ENCOUNTER 2016-11-14 22:04 | Emergency (ER) | payer BC, OTHER ==
[~2016-11-14] VITALS: Ht 162.6 cm; Wt 61.8 kg
[~2016-11-14 22:04] MED LIST changes: -TYLE500T78 PO; -XARE20TA
[2016-11-14] MEDS ORDERED: TYLE500T78 PO (22:23)
[2016-11-14] MEDS ORDERED: XARE20TA (22:23)
[2016-11-14] MEDS ORDERED: cloNIDine 0.2 MG TAB PO ONE (23:00)
[2016-11-14] MEDS ORDERED: METOCLOPRAMIDE INJ 10MG/2ML VIAL (J2765) IV ONE (23:30)
[2016-11-14] MEDS ORDERED: NS 1,000 ML IV ONE (23:30)
[2016-11-14] MEDS ORDERED: MORPHINE 4 MG/ML 1ML SYRINGE IV ONE (23:30)
--- NOTE | 2016-11-15 00:50 | REPUSA ---
CLINICAL HISTORY: Right upper extremity edema COMMENTS: Real time sonography with duplex doppler of the right jugular veins was performed with attention to the major deep venous structures. The right internal, external jugular veins all reveal complete lumen compressibility without intralum inal thrombus. There is normal spontaneous phasic flow and augmentation throughout the deep veins. IMPRESSION: No evidence of DVT. Thank you for your kind referral of this patient.
--- NOTE | 2016-11-15 01:40 | REPUSA ---
CLINICAL HISTORY: Abdominal pain. TECHNIQUE: Multiple axial, sagittal and coronal CT images were obtained through the abdomen and pelvi s without administration of oral or IV contrast material. COMMENTS: Comparison is made to prior exam performed on 06/30/2016. Prior gastric bypass surgery. Changes from prior right hemicolectomy. Surgical anastomosis at the level of the junction between the distal ileum and the transverse colon. Overlying right anterolateral anterior abdominal wall hernia containing free fluid and adjacent soft tissue thickening. Mildly dilated distal small bowel, probably mild ileus. Prior hysterectomy. Lower lumbar fusion metallic hardware is unremarkable. The liver is of uniform attenuation without mass or defect. There is no intra or extrahepatic biliary ductal dilatation. The spleen is normal. The gallbladder is surgically absent. The pancreas is of no rmal contour and attenuation characteristics. There is no evidence of adrenal mass. The kidneys are normal in size, shape and configuration. No renal or ureteral calculi are identified. There is no hydroureter or hydronephrosis. There is no evidence for appendicitis. There is no bowel wall thickening. No evidence for small or la rge bowel obstruction. There is no evidence of abdominal ascites or lymphadenopathy. There is no evidence of intrinsic or extrinsic bladder mass. There is no pelvic ascites or lymphadeno landen. Images of the lung bases show no evidence of pleural or parenchymal mass. There are no pleural effusi ons. The bony structures are free of lytic or blastic lesions. Multilevel degenerative changes are seen in volving the thoracolumbar spine. Scattered calcifications are seen involving the aorta and major branches compatible with atherosclero sis. IMPRESSION: Prior hysterectomy. Gastric bypass surgery. Right hemicolectomy. Surgical anastomosis at the level of the junction between the distal ileum and the transverse colon. Adjacent hyperdense soft tissue thickening. Secondary mild impingement on the adjacent ileum without bowel obstruction. Mild ileus. No incarceration. Thickened bladder suggestive of cystitis. Thank you for your kind referral of this patient.
[2016-11-15 02:11] LABS: BASO % 0.7 % (0.0-1.0); EOS # 0.2 K/mm3 (0.0-0.50); EOS % 4.1 % (0.0-3.0); LARGE UNSTAINED CELL # 0.1 K/mm3 (0.0-0.4); LARGE UNSTAINED CELL % 1.2 % (0.0-4.0); LYMPH # 1.6 K/mm3 (1.5-4.5); LYMPH % 36.2 % (24.0-44.0); MEAN CORPUSCULAR HEMOGLOBIN 29.4 pg (27.0-33.0); MEAN CORPUSCULAR HGB CONC 32.8 g/dl (32.0-36.5); MEAN CORPUSCULAR VOLUME 89.6 fl (80.0-96.0); MONO # 0.3 K/mm3 (0.0-0.8); MONO % 6.7 % (0.0-5.0); NEUTROPHILS # 2.3 K/mm3 (1.8-7.7); NEUTROPHILS % 51.1 % (36.0-66.0); PLATELET COUNT, AUTOMATED 254 k/mm3 (150-450); RED CELL DISTRIBUTION WIDTH 15.9 % (11.5-14.5); WHITE BLOOD COUNT 4.4 K/mm3 (4.0-10.0)
[2016-11-15 02:32] LABS: INR 0.94
[2016-11-15 02:35] LABS: ALBUMIN 3.5 GM/DL (3.2-5.2); ALBUMIN/GLOBULIN RATIO 1.17 (1.00-1.93); ALKALINE PHOSPHATASE 141 U/L (45-117); ALT/SGPT 17 U/L (12-78); AMYLASE 14 U/L (25-115); ANION GAP 11 MEQ/L (8-16); AST/SGOT 14 U/L (15-37); BILIRUBIN,DIRECT < 0.1 MG/DL (0.0-0.2); BILIRUBIN,TOTAL 0.3 MG/DL (0.2-1.0); BLOOD UREA NITROGEN 17 MG/DL (7-18); CALCIUM LEVEL 8.5 MG/DL (8.5-10.1); CARBON DIOXIDE LEVEL 22 MEQ/L (21-32); CHLORIDE LEVEL 112 MEQ/L (98-107); CREATININE FOR GFR 0.69 MG/DL (0.55-1.02); GLOMERULAR FILTRATION RATE > 60.0 (>58); GLUCOSE, FASTING 110 MG/DL (70-105); POTASSIUM SERUM 3.6 MEQ/L (3.5-5.1); SODIUM LEVEL 145 MEQ/L (136-145); TOTAL PROTEIN 6.5 GM/DL (6.4-8.2)
[2016-11-15] MEDS ORDERED: MORPHINE 2 MG/ML 1ML SYRINGE IV ONE (04:00)
[2016-11-15 05:16] VITALS: BP 124/80
[2016-11-15] MEDS ORDERED: SODIUM CHLORIDE 0.9% INJ 10 ML SYR IV PRN (05:30)
[2016-11-15] MEDS ORDERED: HEPARIN (FLUSH) 100 UNITS in SODIUM CHLORIDE 0.45% 99 ML UAC SCH (05:45)
== END 2016-11-15 06:30 | disposition home or self-care (01) ==
LOC: M ED 22:04
DX: M54.2 Cervicalgia (principal); M10.9 Gout, unspecified; R11.10 Vomiting, unspecified; R19.7 Diarrhea, unspecified; G43.909 Migraine, unspecified, not intractable, without status migrainosus; Z98.84 Bariatric surgery status; Z88.0 Allergy status to penicillin; Z88.6 Allergy status to analgesic agent; Z88.8 Allergy status to other drugs, medicaments and biological substances; Z91.041 Radiographic dye allergy status; Z79.02 Long term (current) use of antithrombotics/antiplatelets
CPT/HCPCS: 74176; 80048; 80076; 81001; 82150; 83690; 85025; 85610; 85730; 87088; 87186; 93971; 96361; 96374; 96375; 99282; J2765

== ENCOUNTER → 2017-01-24 | Outpatient (CLI) | payer BC, OTHER ==
[~2017-01-24] MED LIST changes: +TYLE500T78 PO; +XARE20TA
[2017-01-24 12:26] LABS: ALBUMIN 3.8 GM/DL (3.2-5.2); ALBUMIN/GLOBULIN RATIO 1.09 (1.00-1.93); ALKALINE PHOSPHATASE 153 U/L (45-117); ALT/SGPT 37 U/L (12-78); ANION GAP 7 MEQ/L (8-16); AST/SGOT 25 U/L (15-37); BILIRUBIN,TOTAL 0.3 MG/DL (0.2-1.0); BLOOD UREA NITROGEN 8 MG/DL (7-18); CALCIUM LEVEL 8.6 MG/DL (8.5-10.1); CARBON DIOXIDE LEVEL 29 MEQ/L (21-32); CHLORIDE LEVEL 106 MEQ/L (98-107); GLOMERULAR FILTRATION RATE > 60.0 (>58); GLUCOSE, FASTING 111 MG/DL (70-105); POTASSIUM SERUM 3.4 MEQ/L (3.5-5.1); SODIUM LEVEL 142 MEQ/L (136-145); TOTAL PROTEIN 7.3 GM/DL (6.4-8.2)
== END ==
LOC: M LAB 10:55
PROVIDERS: ATTEND Physician Assistant Medical
DX: R73.01 Impaired fasting glucose (principal)

== ENCOUNTER → 2017-01-27 | Outpatient (CLI) | payer BC, OTHER ==
--- NOTE | 2017-01-27 10:51 | REPMRS ---
Patient History The patient states she has not had a clinical breast exam in over a year. Family history of breast cancer in maternal aunt and ovarian cancer in maternal grandmother at age 35. Reductions of both breasts, 1998. Bilateral reduction-1998 Port over left for iron injetions Digital Mammo Screening Bilat: January 27, 2017 - Exam #: [id number] Bilateral CC and MLO view(s) were taken. Technologist: Christelle Butler Technologist FINDINGS: There are scattered fibroglandular densities. There is no evidence of cancer on this mammogram. Large coarse benign appearing calcifications are present. ASSESSMENT: BI-RADS/ACR category 2 mammogram. Benign finding(s). Recommendation Routine screening mammogram of both breasts in 1 year (for women over age 40). This mammogram was interpreted with the aid of an FDA-approved computer-aided dectection system. Electronically Signed By: Beni Cook MD 01/27/17 [id number]
== END ==
LOC: M RAD 10:07
PROVIDERS: ATTEND Family Medicine
DX: Z12.31 Encounter for screening mammogram for malignant neoplasm of breast (principal)

== ENCOUNTER → 2017-03-18 | Outpatient (CLI) | payer BC, OTHER ==
--- NOTE | 2017-03-18 15:46 | REP ---
LEFT KNEE, FIVE VIEWS: HISTORY: Contusion. There is no acute fracture or dislocation. There is minimal narrowing of the medial knee joint space. An osteophyte is present on the superior patella. A small calcification is present in the soft tissue superior to the patella. IMPRESSION: There is no acute fracture or dislocation. Signed by Abhi Hogan MD 03/18/2017 03:47 P
== END ==
LOC: M WUC 12:40
PROVIDERS: ATTEND Physician Assistant
DX: S80.02XA Contusion of left knee, initial encounter (principal); X58.XXXA Exposure to other specified factors, initial encounter; Y92.89 Other specified places as the place of occurrence of the external cause; Y93.89 Activity, other specified; Y99.8 Other external cause status

== ENCOUNTER 2017-11-03 13:36 | Outpatient (CLI) | payer OTHER, BC ==
[2017-11-06 12:13] LABS: BASO % 0.7 % (0.0-1.0); EOS # 0.1 10^3/uL (0.0-0.50); EOS % 2.2 % (0.0-3.0); HEMATOCRIT 41.5 % (36.0-47.0); HEMOGLOBIN 13.1 g/dl (12.0-15.5); IMMATURE GRANULOCYTE % 0.4 % (0-3.0); LYMPH # 1.8 10^3/uL (1.5-4.5); LYMPH % 38.7 % (24.0-44.0); MEAN CORPUSCULAR HEMOGLOBIN 28.9 pg (27.0-33.0); MEAN CORPUSCULAR HGB CONC 31.6 g/dl (32.0-36.5); MEAN CORPUSCULAR VOLUME 91.6 fl (80.0-96.0); MONO # 0.3 10^3/uL (0.0-0.8); MONO % 7.5 % (0.0-5.0); NEUTROPHILS # 2.3 10^3/uL (1.8-7.7); NEUTROPHILS % 50.5 % (36.0-66.0); PLATELET COUNT, AUTOMATED 247 10^3/uL (150-450); RED BLOOD COUNT 4.53 10^6/uL (4.00-5.40); RED CELL DISTRIBUTION WIDTH 15.6 % (11.5-14.5); WHITE BLOOD COUNT 4.5 10^3/uL (4.0-10.0)
[2017-11-06 12:53] LABS: ALBUMIN 3.7 GM/DL (3.2-5.2); ALBUMIN/GLOBULIN RATIO 1.03 (1.00-1.93); ALKALINE PHOSPHATASE 144 U/L (45-117); ALT/SGPT 43 U/L (12-78); ANION GAP 9 MEQ/L (8-16); AST/SGOT 30 U/L (7-37); BILIRUBIN,TOTAL 0.3 MG/DL (0.2-1.0); BLOOD UREA NITROGEN 10 MG/DL (7-18); CALCIUM LEVEL 8.6 MG/DL (8.5-10.1); CARBON DIOXIDE LEVEL 28 MEQ/L (21-32); CHLORIDE LEVEL 105 MEQ/L (98-107); CREATININE FOR GFR 0.74 MG/DL (0.55-1.30); FERRITIN 109 NG/ML (8-252); GLOMERULAR FILTRATION RATE > 60.0 (>58); GLUCOSE, FASTING 127 MG/DL (70-100); IRON (FE) 44 UG/DL (50-170); PERCENT SATURATION 12.8 % (13.2-45.0); POTASSIUM SERUM 3.8 MEQ/L (3.5-5.1); SODIUM LEVEL 142 MEQ/L (136-145); TOTAL IRON BINDING CAPACITY 343 UG/DL (250-450); TOTAL PROTEIN 7.3 GM/DL (6.4-8.2)
[2017-11-06 12:57] LABS: ESTIMATED AVERAGE GLUCOSE 111 MG/DL (60-110); HEMOGLOBIN A1c 5.5 %
== END 2017-11-06 ==
LOC: M SMT 13:36 → M LABDRAW1 11-06 11:56
DX: E11.9 Type 2 diabetes mellitus without complications (principal); D50.9 Iron deficiency anemia, unspecified
CPT/HCPCS: 83550

== ENCOUNTER → 2018-01-07 | Outpatient (CLI) | payer BC, OTHER ==
[2018-01-07 13:13] LABS: BASO % 0.4 % (0.0-1.0); EOS # 0.1 10^3/uL (0.0-0.50); EOS % 1.9 % (0.0-3.0); HEMATOCRIT 42.8 % (36.0-47.0); HEMOGLOBIN 13.2 g/dl (12.0-15.5); IMMATURE GRANULOCYTE % 0.3 % (0-3.0); LYMPH # 2.1 10^3/uL (1.5-4.5); LYMPH % 28.2 % (24.0-44.0); MEAN CORPUSCULAR HEMOGLOBIN 27.9 pg (27.0-33.0); MEAN CORPUSCULAR HGB CONC 30.8 g/dl (32.0-36.5); MEAN CORPUSCULAR VOLUME 90.5 fl (80.0-96.0); MONO # 0.7 10^3/uL (0.0-0.8); MONO % 9.1 % (0.0-5.0); NEUTROPHILS # 4.4 10^3/uL (1.8-7.7); NEUTROPHILS % 60.1 % (36.0-66.0); PLATELET COUNT, AUTOMATED 264 10^3/uL (150-450); RED BLOOD COUNT 4.73 10^6/uL (4.00-5.40); RED CELL DISTRIBUTION WIDTH 13.9 % (11.5-14.5); WHITE BLOOD COUNT 7.4 10^3/uL (4.0-10.0)
[2018-01-07 15:09] LABS: ALBUMIN 3.9 GM/DL (3.2-5.2); ALBUMIN/GLOBULIN RATIO 1.11 (1.00-1.93); ALKALINE PHOSPHATASE 157 U/L (45-117); ALT/SGPT 43 U/L (12-78); ANION GAP 10 MEQ/L (8-16); AST/SGOT 20 U/L (7-37); BILIRUBIN,TOTAL 0.3 MG/DL (0.2-1.0); BLOOD UREA NITROGEN 18 MG/DL (7-18); CARBON DIOXIDE LEVEL 25 MEQ/L (21-32); CHLORIDE LEVEL 105 MEQ/L (98-107); CREATININE FOR GFR 0.81 MG/DL (0.55-1.30); FREE T4 1.02 NG/DL (0.76-1.46); GLOMERULAR FILTRATION RATE > 60.0 (>58); GLUCOSE, FASTING 101 MG/DL (70-100); POTASSIUM SERUM 4.4 MEQ/L (3.5-5.1); SODIUM LEVEL 140 MEQ/L (136-145); TOTAL 25(OH) VITAMIN D 10.7 NG/ML (30.0-100.0); TOTAL PROTEIN 7.4 GM/DL (6.4-8.2); TROPONIN I < 0.02 NG/ML (< 0.10)
[2018-01-08 14:17] LABS: Lyme Disease IgG/IgM Antibodie <0.91 ISR (0.00-0.90); Lyme Disease IgM Ab Quantitati <0.80 index (0.00-0.79)
== END ==
LOC: M SMT 08:55
DX: R53.83 Other fatigue (principal)
CPT/HCPCS: 84443

== ENCOUNTER → 2018-01-09 | Outpatient (CLI) | payer BC, OTHER | LOC: M EKG 09:57 | DX: R53.83 Other fatigue (principal); I95.9 Hypotension, unspecified | CPT/HCPCS: 93225 ==